=== PATIENT | female | born 1955 | race Two or more races ===

== ENCOUNTER 2020-04-07 09:36 | Outpatient (REF) | payer MEDICAID, SELFPAY ==
--- NOTE | 2020-04-07 | MM_ITS ---
EXAMINATION: MM SCREENING DIGITAL BREAST TOMOSYNTHESIS, BILATERAL CLINICAL INFORMATION: Screening. Asymptomatic. The lifetime risk of breast cancer based on the Tyrer-Cuzick Model is 8%. COMPARISON: Mammography: 04/02/2019, 03/10/2018 TECHNIQUE: Digital breast tomosynthesis is performed in both the craniocaudal and mediolateral oblique views along with computer-aided detection (CAD). Synthesized 2D images are generated from the tomosynthesis. FINDINGS: There are scattered areas of fibroglandular density (ACR BI-RADS breast composition Category b). There are no significant masses, abnormal calcifications, or other abnormalities. The axilla and skin contours are unremarkable. MM/MM tomosynthesis screening BI IMPRESSION: No mammographic evidence of malignancy. ASSESSMENT: BI-RADS 1: Negative RECOMMENDATION: Routine annual mammography screening. This patient's information was entered into a reminder system with a target due date for their next mammogram.
== END 2020-04-07 09:37 | disposition home or self-care (01) ==
LOC: HO.MAMMO 09:36
PROVIDERS: PCP Internal Medicine; Visit Provider Internal Medicine
DX: Z12.31 Encounter for screening mammogram for malignant neoplasm of breast (principal)
CPT/HCPCS: 77063; 77067

== ENCOUNTER 2020-07-25 08:26 | Outpatient (REF) | payer MEDICAID, SELFPAY | END 2020-07-25 08:27 | disposition home or self-care (01) | LOC: HO.LAB 08:26 | PROVIDERS: PCP Internal Medicine; Visit Provider Internal Medicine | DX: Z20.822 Contact with and (suspected) exposure to COVID-19 (principal) | CPT/HCPCS: 36415; C9803; U0003; U0005 ==

== ENCOUNTER 2020-09-17 09:30 | Outpatient (REF) | payer MEDICAID, SELFPAY ==
--- NOTE | ~2020-09-17 | CT_ITS ---
EXAMINATION: CT SOFT TISSUE NECK WITHOUT CONTRAST CLINICAL INFORMATION: Throat pain. COMPARISON: None. TECHNIQUE: Helical imaging was performed in the axial plane with generation of coronal and sagittal reformatted images. This CT examination was performed using dose optimization techniques as appropriate, variously including the following: *Automated exposure control *Adjustment of mA and/or kV according to patient size (this includes techniques or standardized protocols for targeted exams where dose is matched to indication/reason for exam; i.e. extremities or head) *Use of iterative reconstruction technique DLP: 287 mGy-cm. FINDINGS: No contour abnormality is evident within the oral cavity, pharyngeal mucosal space, or larynx, though assessment of the glottic folds are somewhat limited due to apposition. The palatine tonsils are fairly symmetric in appearance. The parotid and mandibular glands appear normal on this noncontrast study. No pathologically enlarged cervical lymph nodes are visible. No soft tissue fluid collections are seen. The thyroid gland appears normal. Mild atherosclerotic wall calcifications of the aortic arch visible. The mediastinum is otherwise grossly unremarkable. There is moderate spondylosis at the C5-C6 level with a disc-osteophyte complex and vacuum phenomenon. Mild anterolisthesis evident at the C4-C5 level with [id number] right-sided hypertrophic facet arthropathy. Mild anterior subluxation also visible at the C3-C4 level. Slight reversal of the normal cervical lordosis. The imaged portions of the lungs are grossly clear. There is an incidental 0.3 cm nodule posteriorly in the left upper lobe. The airways are patent. No acute osseous abnormality is seen. There is periapical lucency and dental caries associated with the left 2nd maxillary premolar tooth. Periapical lucency also visible with the right 1st maxillary premolar. The imaged paranasal sinuses and mastoid air cells are fairly well aerated. The TMJs are normal. The orbits are normal in appearance. There is a moderate sigmoidal-shaped nasal septal deviation. The visualized portions of the brain demonstrate no acute abnormality. CT/CT soft tissue neck wo con IMPRESSION: No visible soft tissue abnormality on this limited noncontrast study. No cervical adenopathy. Periapical lucencies of the left 2nd maxillary premolar and right 1st maxillary premolar teeth which are age-indeterminate. Incidental small 0.3 cm nodule in the left upper lobe. Reference: The Fleischner Society recommendations for management of incidentally detected pulmonary nodules in adults age 35 and greater are based on average nodule size and patient risk category. The recommendations do not apply to lung cancer screening, patients with immunosuppression, or patients with known primary cancer. Single solid nodule average size < 0.3 cm: Low Risk Patient: No routine follow-up. High Risk Patient: Optional CT at 12 months. Certain patients at high risk with suspicious nodule morphology, upper lobe location, or both may warrant 12-month follow-up.
== END 2020-09-17 09:31 | disposition home or self-care (01) ==
LOC: HO.CT 09:30
PROVIDERS: Visit Provider Emergency Medicine
DX: R07.0 Pain in throat (principal); R51.9 Headache, unspecified
CPT/HCPCS: 70490

== ENCOUNTER 2020-10-22 08:08 | Outpatient (REF) | payer MEDICAID, SELFPAY | END 2020-10-22 08:09 | disposition home or self-care (01) | LOC: HO.LAB 08:08 | PROVIDERS: Visit Provider Internal Medicine | DX: Z20.822 Contact with and (suspected) exposure to COVID-19 (principal) | CPT/HCPCS: C9803; U0003; U0005 ==

== ENCOUNTER 2020-11-27 09:58 | Outpatient (REF) | payer MEDICARE, MEDICAID, SELFPAY ==
--- NOTE | ~2020-11-27 | CT_ITS ---
EXAMINATION: CT HEAD WITHOUT CONTRAST CLINICAL INFORMATION: Chronic headache for 3 months COMPARISON: Brain MRI November 2011 TECHNIQUE: Contiguous axial imaging was performed from the skull base to vertex without intravenous administration of contrast. This CT examination was performed using dose optimization techniques as appropriate, variously including the following: *Automated exposure control *Adjustment of mA and/or kV according to patient size (this includes techniques or standardized protocols for targeted exams where dose is matched to indication/reason for exam; i.e. extremities or head) *Use of iterative reconstruction technique DLP: 619 mGy-cm FINDINGS: There is no evidence of acute intracranial hemorrhage or territorial infarction. No abnormal mass effect or midline shift is seen. Smith to white matter differentiation is well preserved. No extra-axial fluid collections are identified. The ventricles are normal in size. There is no abnormal attenuation within the brain parenchyma. The osseous structures and soft tissues are normal. The mastoid air cells and visualized portions of the paranasal sinuses are well aerated. CT/CT head/brain wo con IMPRESSION: Unremarkable exam.
== END 2020-11-27 09:59 | disposition home or self-care (01) ==
LOC: HO.CT 09:58
PROVIDERS: Visit Provider Emergency Medicine
DX: R51.9 Headache, unspecified (principal)
CPT/HCPCS: 70450

== ENCOUNTER 2020-12-26 09:59 | Outpatient (REF) | payer MEDICARE, MEDICAID, SELFPAY ==
--- NOTE | ~2020-12-26 | CT_ITS ---
EXAMINATION: CT CHEST WITHOUT CONTRAST CLINICAL INFORMATION: Solitary pulmonary nodule COMPARISON: CT soft tissue neck 09/17/2020 TECHNIQUE: Multidetector volumetric CT imaging of the chest was done. Axial MIP volume rendering provided. Sagittal and coronal reformatted images were obtained. This CT examination was performed using dose optimization techniques as appropriate, variously including the following: *Automated exposure control *Adjustment of mA and/or kV according to patient size (this includes techniques or standardized protocols for targeted exams where dose is matched to indication/reason for exam; i.e. extremities or head) *Use of iterative reconstruction technique DLP: 120 mGy-cm FINDINGS: [employer]: Unremarkable LUNGS: There is a 3 mm nodule left upper lobe posterior segment (axial image 139/6), stable. No additional pulmonary nodules seen. There are patchy parenchymal opacities in both lung bases, right middle lobe and lingula suggestive of atelectasis. No acute consolidation, mass or additional nodules seen. The lungs are otherwise well expanded. MEDIASTINUM: The thyroid lobes are symmetrical and normal. The central trachea and the bronchi widely patent. The heart size and the great vessels are normal caliber. No pericardial effusion seen. No abnormal size mediastinal or hilar lymph nodes or mass seen. There is no pericardial effusion. PLEURA: There is no pleural effusion. No pleural mass or thickening. AXILLA: Small shotty lymph nodes are seen in bilateral axilla. The chest wall is unremarkable. UPPER ABDOMEN: Visualized liver, spleen, pancreas and bilateral adrenal glands are unremarkable. OSSEOUS STRUCTURES: There is mild ventral spondylosis throughout mid and lower dorsal spine. No lytic process seen. CT/CT chest wo con IMPRESSION: Stable 3 mm left upper lobe nodule compared to previous study 09/17/2020. No new nodules seen. Bilateral lower lobe dependent segment, right middle lobe and lingular patchy parenchymal opacities likely atelectasis.
== END 2020-12-26 10:00 | disposition home or self-care (01) ==
LOC: HO.CT 09:59
PROVIDERS: Visit Provider Internal Medicine
DX: R91.1 Solitary pulmonary nodule (principal)
CPT/HCPCS: 71250

== ENCOUNTER 2021-01-28 12:02 | Outpatient (REF) | payer MEDICARE, MEDICAID, SELFPAY | END 2021-01-28 12:03 | disposition home or self-care (01) | LOC: HO.LAB 12:02 | PROVIDERS: PCP Internal Medicine; Visit Provider Internal Medicine | DX: Z20.822 Contact with and (suspected) exposure to COVID-19 (principal) | CPT/HCPCS: C9803; U0003; U0005 ==

== ENCOUNTER 2021-02-08 12:32 | Outpatient (REF) | payer MEDICARE, MEDICAID, SELFPAY | END 2021-02-08 12:33 | disposition home or self-care (01) | LOC: HO.LAB 12:32 | PROVIDERS: PCP Internal Medicine; Visit Provider Internal Medicine | DX: Z20.822 Contact with and (suspected) exposure to COVID-19 (principal) | CPT/HCPCS: C9803; U0003; U0005 ==

== ENCOUNTER 2021-02-15 10:26 | Outpatient (REF) | payer MEDICARE, MEDICAID, SELFPAY ==
--- NOTE | ~2021-02-15 | XR_ITS ---
EXAMINATION: XR SHOULDER, RIGHT CLINICAL INFORMATION: Pain in right shoulder COMPARISON: None TECHNIQUE: AP external rotation, Grashey, scapular Y, and axillary views of the right shoulder. FINDINGS: No fracture. No dislocation. Normal mineralization and alignment. Joint spaces are maintained. Visualized right lung and ribs are normal. XR/XR shoulder RT min 2V IMPRESSION: No acute osseous abnormality of the right shoulder.
== END 2021-02-15 10:27 | disposition home or self-care (01) ==
LOC: HO.XRAY 10:26
PROVIDERS: Absent Provider Internal Medicine; PCP Internal Medicine; Visit Provider Emergency Medicine
DX: M25.511 Pain in right shoulder (principal)
CPT/HCPCS: 73030

== ENCOUNTER 2021-02-27 10:16 | Outpatient (REF) | payer MEDICARE, MEDICAID, SELFPAY | END 2021-02-27 10:17 | disposition home or self-care (01) | LOC: HO.LAB 10:16 | PROVIDERS: PCP Internal Medicine; Visit Provider Internal Medicine | DX: Z20.822 Contact with and (suspected) exposure to COVID-19 (principal) | CPT/HCPCS: C9803; U0003; U0005 ==

== ENCOUNTER 2021-03-15 09:05 | Outpatient (REF) | payer MEDICARE, MEDICAID, SELFPAY ==
[2021-03-15 09:34] LABS: COVID-19 Test Negative (Negative)
== END 2021-03-15 09:06 | disposition home or self-care (01) ==
LOC: HO.LAB 09:05
PROVIDERS: PCP Internal Medicine; Visit Provider Internal Medicine
DX: Z20.822 Contact with and (suspected) exposure to COVID-19 (principal)
CPT/HCPCS: 36415; 87635; C9803

== ENCOUNTER 2021-04-23 10:33 | Inpatient (IN) | payer MEDICARE, MEDICAID, SELFPAY ==
--- NOTE | ~2021-04-23 | CT_ITS ---
EXAMINATION: CT ABDOMEN AND PELVIS WITH CONTRAST CLINICAL INFORMATION: Rectal bleeding COMPARISON: CT scan abdomen pelvis 06/03/2019 TECHNIQUE: Multidetector volumetric images were obtained from the superior aspect of the liver through the pubic symphysis following administration 85 mL of Omnipaque 350 intravenous contrast. Sagittal and coronal reformatted images were obtained on the technologist's workstation. Oral contrast: No This CT examination was performed using dose optimization techniques as appropriate, variously including the following: *Automated exposure control *Adjustment of mA and/or kV according to patient size (this includes techniques or standardized protocols for targeted exams where dose is matched to indication/reason for exam; i.e. extremities or head) *Use of iterative reconstruction technique DLP: 523 mGy-cm FINDINGS: LUNG BASES: The visualized lung bases are unremarkable. LIVER, GALLBLADDER, AND BILIARY TREE: The liver is normal in size, shape, and attenuation. No focal hepatic lesion or biliary ductal dilatation is present. The gallbladder is unremarkable with no evidence of radiopaque gallstones, gallbladder wall thickening, or obvious pericholecystic inflammatory changes. PANCREAS: Unremarkable. SPLEEN: Unremarkable. ADRENAL GLANDS: Unremarkable. KIDNEYS AND URETERS: The kidneys are normal in size, shape, and attenuation. No hydronephrosis, hydroureter, or calculi seen. No perinephric stranding. There are a few small cortical hypodensities consistent with renal cysts. Largest measuring about 1 cm in the mid lower pole right kidney, coronal image 53/78. No follow-up imaging is recommended for simple renal cyst. BLADDER: No inflammation or bladder calculus or mass. Low in the pelvis inferior to the bladder neck there is a cluster of calcifications which are chronic unchanged since CAT scan 07/30/2012. GASTROINTESTINAL TRACT: There are numerous diverticula throughout the colon. Diverticulosis is most significant at the sigmoid colon. There is no diverticulitis. There is no bowel wall thickening /edema. There is no bowel obstruction. There is a moderate volume of stool in the colon. The appendix is normal . The small bowel loops are unremarkable. The stomach is normal. There is no hiatal hernia. ABDOMINAL WALL: No significant hernia is appreciated. LYMPH NODES: Normal. VASCULAR: Unremarkable. PELVIC VISCERA: Uterus is anteverted. Enhancing fibroid in the fundus of uterus measuring 1.2 cm. There is no adnexal abnormality. Status post bilateral tubal ligation. OSSEOUS STRUCTURES: Multilevel degenerative spondylosis of the spine. CT/CT abdomen pelvis w con IMPRESSION: No acute abnormality CT scan abdomen pelvis. There is significant diverticulosis of the colon but no acute change of bowel.
[2021-04-23 12:10] VITALS: BP 148/57; PULSE 84; RESP 20; TEMP 36.3; O2SAT 99; BMI 31.4
[2021-04-23 14:09] LABS: MANUAL DIFF FLAG NO
[2021-04-23 14:18] LABS: Basophils Absolute Auto 0.1 X10*3/uL (0.0-0.2); Basophils Percent Auto 0.8 % (0-2); Eosinophils Absolute Auto 0.4 X10*3/uL (0.0-0.4); Eosinophils Percent Auto 6.1 % (0-4); Hematocrit 35.2 % (37.0-47.0); Hemoglobin 11.6 g/dl (12.0-16.0); Imm Gran Abs Auto 0.02 X10*3/uL (0.00-0.03); Imm Gran Pct Auto 0.3 % (0.0-0.4); Lymphocytes Absolute Auto 2.2 X10*3/uL (1.2-4.9); Lymphocytes Percent Auto 33.3 % (20-40); Mean Corpuscular Hemoglobin 32.4 pg (27.0-33.0); Mean Corpuscular Volume 98.3 fL (80.0-98.0); Mean Platelet Volume 9.1 fL (9.4-12.3); Monocytes Absolute Auto 0.7 X10*3/uL (0.1-1.2); Monocytes Percent Auto 10.6 % (2-11); Neutrophils Absolute Auto 3.2 x10*3/uL (2.0-8.3); Neutrophils Percent Auto 48.9 % (45-73); Platelet Count 376 X10*3/uL (160-400); Red Blood Count 3.58 X10*6/uL (4.20-5.50); Red Cell Distribution Width 12.5 % (11.0-16.0); White Blood Count 6.6 X10*3/uL (4.8-10.8)
[2021-04-23 14:36] LABS: Alanine Aminotransferase 28 U/L (0-31); Albumin Level 3.7 g/dL (3.5-5.0); Alkaline Phosphatase 94 U/L (39-117); Anion Gap 8 (12-20); Aspartate Amino Transferase 27 U/L (5-31); Bilirubin Direct < 0.2 mg/dL (0.0-0.5); Bilirubin Total 0.3 mg/dL (0.0-1.0); Blood Urea Nitrogen 12 mg/dL (9-16); Carbon Dioxide 28 mmol/L (22-29); Chloride 108 mmol/L (96-108); Creatinine Clr Calc Pharmacy 68.4; Estimated Glomerular Filt Rate > 60; Glucose Random 100 mg/dL (60-115); Lipase 19 U/L (8-78); Potassium 4.2 mmol/L (3.3-5.1); Sodium 140 mmol/L (135-145); Total Protein 6.8 g/dL (6.5-8.0)
[2021-04-23 16:00] VITALS: BP 147/68; PULSE 82; RESP 17; TEMP 36.8; O2SAT 99
[2021-04-23 17:26] VITALS: BP 142/77; PULSE 83; RESP 18; TEMP 36.8; O2SAT 98
--- NOTE | 2021-04-23 17:27 | ED_ITS ---
HPI - GI Bleed General Chief complaint: GI Bleed Stated complaint: rectal bleeding Time Seen by Provider: 04/23/21 16:47 Source: patient Mode of arrival: ambulatory Limitations: no limitations History of Present Illness HPI Narrative: Rectal bleeding intermittent for 3 Days ,bright red blood Onset (ago): day(s) (3) Severity: moderate Relieving factors: none Exacerbating factors: none Related Data Home Medications Medication Instructions Recorded Confirmed fluticasone propionate 50 1 spray INTRANASAL DAILY PRN 04/23/21 04/23/21 mcg/actuation nasal spray,suspension ibuprofen 800 mg tablet 1 tab PO DAILY 04/23/21 04/23/21 Allergies Allergy/AdvReac Type Severity Reaction Status Date / Time No Known Allergies Allergy Unverified 02/23/20 15:46 Review of Systems Constitutional: Constitutional: Reports no additional constitutional complaints Cardiovascular: Cardiovascular: Reports no additional cardiovascular complaints, Denies chest pain and Denies chest pain at rest Respiratory: Respiratory: Reports no additional respiratory complaints Gastrointestinal: Gastrointestinal: Denies coffee ground emesis Neurologic: Reports system reviewed and no additional complaints, except as documented PMF Past Medical History Attestation statement: The following information was validated with the patient. Social History Social History Alcohol intake: never Patient Tobacco Use Status: Never used Tobacco Use of substances other than those prescribed or required for medical reasons: No Advance Directives: No Advance Directives Information Provided: Yes Physical Exam Vital Signs: Vital Signs: Last Vital Signs Temp 98.0 F 04/23/21 21:39 Pulse 84 04/23/21 21:39 Resp 17 04/23/21 21:39 BP 147/82 H 04/23/21 21:39 Pulse Ox 99 04/23/21 21:39 Body Mass Index 31.4 Const: General: cooperative and comfortable Orientation/consciousness: oriented to person, oriented to place, oriented to time and patient oriented x3 HENMT: Head: Yes normal to inspection General nose exam: Normal nares present Face and sinus: Yes normal facial exam Mouth: Normal oral and palatal mucosa present Throat: Yes posterior oropharynx normal Eyes: Conjunctivae: conjunctivae normal Neck: Neck: Yes normal visual inspection and Yes full ROM Chest: Chest palpation & inspection: normal inspection of the chest Resp: Effort & Inspection: normal respiratory effort Auscultation: clear to auscultation bilaterally Cardio: Jugular venous distension: no JVD Rate: regular rate Rhythm: regular rhythm GI: Inspection: Yes normal to inspection Palpation (GI): Soft to palpation, not firm, nontender and no guarding Rectal Exam - Female: visual inspection normal, Abnormal stool present (bloody,) and heme positive stool Skin: General skin exam: no rashes or lesions noted and elasticity normal Lesions: no lesions Rashes: no rashes Neuro: General: oriented to person, oriented to place, oriented to time and patient oriented x3 Course Reevaluation(s) Reevaluation #1: case was d/w GI Dr Rivera ,spoke with hospitalist MDM - GI Bleed Lab Data Result diagrams: 04/23/21 14:05 04/23/21 14:05 Labs: Lab Results 04/23/21 04/23/21 04/23/21 Range/Units 14:05 14:05 17:48 WBC 6.6 (4.8-10.8) X10*3/uL RBC 3.58 L (4.20-5.50) X10*6/uL Hgb 11.6 L (12.0-16.0) g/dl Hct 35.2 L (37.0-47.0) % MCV 98.3 H (80.0-98.0) fL MCH 32.4 (27.0-33.0) pg MCHC 33.0 (31.0-35.0) g/dl RDW 12.5 (11.0-16.0) % Plt Count 376 (160-400) X10*3/uL MPV 9.1 L (9.4-12.3) fL Immature Gran % (Auto) 0.3 (0.0-0.4) % Neut % (Auto) 48.9 (45-73) % Lymph % (Auto) 33.3 (20-40) % [place] % (Auto) 10.6 (2-11) % Eos % (Auto) 6.1 H (0-4) % Baso % (Auto) 0.8 (0-2) % Lymph # (Auto) 2.2 (1.2-4.9) X10*3/uL [place] # (Auto) 0.7 (0.1-1.2) X10*3/uL Eos # (Auto) 0.4 (0.0-0.4) X10*3/uL Baso # (Auto) 0.1 (0.0-0.2) X10*3/uL Abs Immat Gran (auto) 0.02 (0.00-0.03) X10*3/uL Absolute Neuts (auto) 3.2 (2.0-8.3) x10*3/uL Absolute Nucleated RBC 0.000 (0.0-0.012) X10*3/uL Nucleated RBC % (auto) 0.0 (0.0-0.2) /100WBC Sodium 140 (135-145) mmol/L Potassium 4.2 (3.3-5.1) mmol/L Chloride 108 (96-108) mmol/L Carbon Dioxide 28 (22-29) mmol/L Anion Gap 8 L (12-20) BUN 12 (9-16) mg/dL Creatinine 0.64 (0.5-1.4) mg/dL Estim Creat Clear Calc 68.4 Estimated GFR > 60 Random Glucose 100 (60-115) mg/dL Calcium 9.0 (8.4-10.2) mg/dL Total Bilirubin 0.3 (0.0-1.0) mg/dL Direct Bilirubin < 0.2 (0.0-0.5) mg/dL AST 27 (5-31) U/L ALT 28 (0-31) U/L Alkaline Phosphatase 94 (39-117) U/L Total Protein 6.8 (6.5-8.0) g/dL Albumin 3.7 (3.5-5.0) g/dL Lipase 19 (8-78) U/L Urine Color Urine Appearance Urine pH (5.0-8.0) Ur Specific [place] (1.005-1.025) Urine Protein (NEG-TRACE) MG/DL Urine Glucose (UA) (NEG) MG/DL Urine Ketones (NEG) MG/DL Urine Blood (NEG) Urine Nitrite (NEG) Ur Leukocyte Esterase (NEG) Urine RBC (0) /HPF Urine WBC (0-4) /HPF Ur Squamous Epith Cells /LPF Urine Bacteria /LPF Stool Occult Blood (NEGATIVE) COVID-19 ([facility]) (Negative) COVID-19 Clin Com Blood Type A Positive Antibody Screen NEGATIVE 04/23/21 04/23/21 04/23/21 Range/Units 18:27 18:27 20:29 WBC (4.8-10.8) X10*3/uL RBC (4.20-5.50) X10*6/uL Hgb (12.0-16.0) g/dl Hct (37.0-47.0) % MCV (80.0-98.0) fL MCH (27.0-33.0) pg MCHC (31.0-35.0) g/dl RDW (11.0-16.0) % Plt Count (160-400) X10*3/uL MPV (9.4-12.3) fL Immature Gran % (Auto) (0.0-0.4) % Neut % (Auto) (45-73) % Lymph % (Auto) (20-40) % [place] % (Auto) (2-11) % Eos % (Auto) (0-4) % Baso % (Auto) (0-2) % Lymph # (Auto) (1.2-4.9) X10*3/uL [place] # (Auto) (0.1-1.2) X10*3/uL Eos # (Auto) (0.0-0.4) X10*3/uL Baso # (Auto) (0.0-0.2) X10*3/uL Abs Immat Gran (auto) (0.00-0.03) X10*3/uL Absolute Neuts (auto) (2.0-8.3) x10*3/uL Absolute Nucleated RBC (0.0-0.012) X10*3/uL Nucleated RBC % (auto) (0.0-0.2) /100WBC Sodium (135-145) mmol/L Potassium (3.3-5.1) mmol/L Chloride (96-108) mmol/L Carbon Dioxide (22-29) mmol/L Anion Gap (12-20) BUN (9-16) mg/dL Creatinine (0.5-1.4) mg/dL Estim Creat Clear Calc Estimated GFR Random Glucose (60-115) mg/dL Calcium (8.4-10.2) mg/dL Total Bilirubin (0.0-1.0) mg/dL Direct Bilirubin (0.0-0.5) mg/dL AST (5-31) U/L ALT (0-31) U/L Alkaline Phosphatase (39-117) U/L Total Protein (6.5-8.0) g/dL Albumin (3.5-5.0) g/dL Lipase (8-78) U/L Urine Color YELLOW Urine Appearance CLEAR Urine pH 6.0 (5.0-8.0) Ur Specific [place] <= 1.005 (1.005-1.025) Urine Protein NEG (NEG-TRACE) MG/DL Urine Glucose (UA) NEG (NEG) MG/DL Urine Ketones NEG (NEG) MG/DL Urine Blood TRACE (NEG) Urine Nitrite NEG (NEG) Ur Leukocyte Esterase 1+ H (NEG) Urine RBC 0-2 (0) /HPF Urine WBC 0-2 (0-4) /HPF Ur Squamous Epith Cells TRACE /LPF Urine Bacteria TRACE /LPF Stool Occult Blood POSITIVE (NEGATIVE) COVID-19 ([facility]IE) Negative (Negative) COVID-19 Clin Com See Note Blood Type Antibody Screen Imaging Data CT scan - abdomen: My impression: Diverticulosis Discharge Plan Discharge Clinical Impression: Rectal bleed Patient Disposition: Admitted As Inpatient
--- NOTE | 2021-04-23 17:50 | PC.NURSE ---
patient a&ox3, vss, assisted provider with rectal exam, iv inserted, fluids hung per order
[2021-04-23] MEDS: 0.9 % Sodium Chloride 1,000 ML 999 ML IVCONT (18:10)
[2021-04-23] MEDS: iohexoL 350 MG/ML 100 ML INFUS..BTL IV (18:11)
[2021-04-23 18:36] LABS: Appearance Urine CLEAR; Color Urine YELLOW; Glucose Urine UA NEG (NEG); Leukocyte Esterase Urine 1+ (NEG); Nitrite Urine NEG (NEG); Specific Gravity - Urine <= 1.005 (1.005-1.025); UACC Culture Trigger YES; Urine Blood TRACE (NEG); Urine Ketones NEG (NEG); Urine Protein NEG (NEG-TRACE)
[2021-04-23 18:37] LABS: OBS Int Ctl Valid YES; OBS1 POSITIVE (NEGATIVE)
[2021-04-23 18:53] LABS: Bacteria Urine TRACE /LPF; RBC Urine 0-2 /HPF (0); Squamous Epithelial Cell Urine TRACE /LPF; WBC Urine 0-2 /HPF (0-4)
[2021-04-23] MEDS: PEG 3350/Na Sulf,Bicarb,Cl/KCL 4,000 ML SOLN.RECON 4000 ML PO (20:04)
--- NOTE | 2021-04-23 20:08 | PHA.MEDREC ---
Pharmacy Consult ? Medication Reconciliation Pharmacy has completed the medication reconciliation. Annalisa VelascoD
[2021-04-23 20:34] VITALS: BP 140/78; PULSE 80; RESP 20; TEMP 36.6; O2SAT 99
--- NOTE | 2021-04-23 20:36 | P.HPHOSP_ITS ---
History of Present Illness Date of Service: 04/23/21 Chief Complaint: Bloody bowel movement This is a 65-year-old female with past medical history of AYANA as well as fibromyalgia presents to the hospital with complaints of rectal bleed for the past 3 days. Patient reports large amount of blood with every bowel movement. No diarrhea. Reports no previous similar episode. Has left lower quadrant pain. The pain is 6/10, nonradiating, intermittent. Denies any dizziness, no headache, no shortness breath, no change in her vision, no chest pain. Denies nausea or vomiting. No urinary symptoms and no lower extremity edema. She takes ibuprofen daily for her fibromyalgia. On arrival to the ED patient hemodynamically stable with no significant abnormal vitals Labs are significant for WBC count of 6.0, hemoglobin that dropped from 13.4- 11.6, labs otherwise unremarkable. She has UA that is positive for leukocyte Estrace and 0-2 WBC counts with no symptoms. Review of Systems Review of Systems: Yes all other systems are reviewed and are negative [facility] Medical History (Updated 04/24/21 @ 06:28 by Maykel Jimenez MD) Fibromyalgia AYANA (obstructive sleep apnea) Family History (Updated 04/24/21 @ 06:29 by Maykel Jimenez MD) Mother Breast cancer Father Alzheimer's dementia Hypertension Social History Household Members: Family Household Members Other:: grandson Housing: Apartment Do you presently have visiting nurse or other home services: Yes Alcohol intake: never Patient Tobacco Use Status: Never used Tobacco Use of substances other than those prescribed or required for medical reasons: No Have you been hit, kicked, punched, or otherwise hurt by someone within the past year? If so, by whom?: No Do you feel safe in your current relationship?: No Is there a partner from a previous relationship who is making you feel unsafe now?: No Are you made to feel afraid or neglected: No Advance Directives: No Advance Directives Information Provided: Yes Do you have thoughts of harming others: None Do you have a plan to hurt others: No Plan Recently lost weight without trying: No How much weight loss: Not applicable Eating poorly because of decreased appetite: No Nutrition screen score: 0 Nutrition Risks: No Nutritional Risk Patient : No : No Poor oral hygiene: No Meds Allergies Allergy/AdvReac Type Severity Reaction Status Date / Time No Known Allergies Allergy Unverified 02/23/20 15:46 Active Medications: Current Medications Pharmacy Consult (Consult Rx Perform Med Rec) 1 each MISCELLANE ONCE PRN PRN Reason: Consult order Home Medications Medication Instructions Recorded Confirmed Last Taken Type fluticasone propionate 50 1 spray INTRANASAL DAILY PRN 04/23/21 04/23/21 Unknown History mcg/actuation nasal spray,suspension ibuprofen 800 mg tablet 1 tab PO DAILY 04/23/21 04/23/21 04/22/21 History Physical Exam Vital Signs and Narrative: Vital Signs: Last Vital Signs Temp 97.8 F 04/23/21 20:34 Pulse 80 04/23/21 20:34 Resp 20 04/23/21 20:34 BP 140/78 H 04/23/21 20:34 Pulse Ox 99 04/23/21 20:34 Body Mass Index 31.4 Const: General: cooperative and no acute distress Orientation/consciousness: patient oriented x3 Eyes: General: appearance normal, both eyes and all related structures Resp: Effort & Inspection: normal respiratory effort Auscultation: clear to auscultation bilaterally Cardio: Rate: regular rate Rhythm: regular rhythm GI: Other: Abdomen is soft, no rebound or guarding Palpation (GI): Soft to palpation Auscultation: normal bowel sounds Skin: General skin exam: no rashes or lesions noted Neuro: General: patient oriented x3 Cognition (Neuro): normal cognition Extrem: General: Yes normal to inspection and Yes no pedal edema Results Labs CBC and Chem 7: 04/24/21 05:13 04/24/21 05:13 Labs: Laboratory Results - last 24 hr 04/23/21 04/23/21 04/23/21 14:05 14:05 17:48 MCV 98.3 H MCH 32.4 MCHC 33.0 RDW 12.5 Plt Count 376 MPV 9.1 L Immature Gran % (Auto) 0.3 Neut % (Auto) 48.9 Lymph % (Auto) 33.3 [place] % (Auto) 10.6 Eos % (Auto) 6.1 H Baso % (Auto) 0.8 Lymph # (Auto) 2.2 [place] # (Auto) 0.7 Eos # (Auto) 0.4 Baso # (Auto) 0.1 Abs Immat Gran (auto) 0.02 Absolute Neuts (auto) 3.2 Absolute Nucleated RBC 0.000 Nucleated RBC % (auto) 0.0 Anion Gap 8 L Estim Creat Clear Calc 68.4 Estimated GFR > 60 Random Glucose 100 Calcium 9.0 Total Bilirubin 0.3 Direct Bilirubin < 0.2 AST 27 ALT 28 Alkaline Phosphatase 94 Total Protein 6.8 Albumin 3.7 Lipase 19 Urine Color Urine Appearance Urine pH Ur Specific [place] Urine Protein Urine Glucose (UA) Urine Ketones Urine Blood Urine Nitrite Ur Leukocyte Esterase Urine RBC Urine WBC Ur Squamous Epith Cells Urine Bacteria Stool Occult Blood Blood Type A Positive Antibody Screen NEGATIVE 04/23/21 04/23/21 18:27 18:27 MCV MCH MCHC RDW Plt Count MPV Immature Gran % (Auto) Neut % (Auto) Lymph % (Auto) [place] % (Auto) Eos % (Auto) Baso % (Auto) Lymph # (Auto) [place] # (Auto) Eos # (Auto) Baso # (Auto) Abs Immat Gran (auto) Absolute Neuts (auto) Absolute Nucleated RBC Nucleated RBC % (auto) Anion Gap Estim Creat Clear Calc Estimated GFR Random Glucose Calcium Total Bilirubin Direct Bilirubin AST ALT Alkaline Phosphatase Total Protein Albumin Lipase Urine Color YELLOW Urine Appearance CLEAR Urine pH 6.0 Ur Specific [place] <= 1.005 Urine Protein NEG Urine Glucose (UA) NEG Urine Ketones NEG Urine Blood TRACE Urine Nitrite NEG Ur Leukocyte Esterase 1+ H Urine RBC 0-2 Urine WBC 0-2 Ur Squamous Epith Cells TRACE Urine Bacteria TRACE Stool Occult Blood POSITIVE Blood Type Antibody Screen Imaging Radiologist's Impressions: Impressions Abdomen/Pelvis CT 04/23/21 17:25 IMPRESSION: No acute abnormality CT scan abdomen pelvis. There is significant diverticulosis of the colon but no acute change of bowel. Assessment and Plan (1) Rectal bleed: Status: Acute 65-year-old female with past medical history of fibromyalgia for which she takes of problem presents the hospital with bloody bowel movements. # GI bleed - lower versus upper - has history of taking NSAIDs - history of diverticulosis as seen in the CT of the abdomen - reports had colonoscopy 2 years ago that showed diverticulosis with no other abnormality - hemodynamically stable - hemoglobin did drop from 13-11 - patient was discussed with GI by the ED physician, recommended clear liquid diet at this time - will monitor hemoglobin - hold ibuprofen - GI consulted # AYANA - continue CPAP at bedtime # fibromyalgia - hold ibuprofen DVT prophylaxis: SCDs Quality Stroke Does the patient have a stroke diagnosis?: No VTE Prior VTE?: No VTE Risk Level:: Medical - moderate - high VTE Device Contraindication: Treatment Not Indicated VTE Drug Contraindication: N/A - Med Ordered
[2021-04-23 20:56] LABS: COVID-19 Test Negative (Negative)
[2021-04-23 21:39] VITALS: BP 147/82; PULSE 84; RESP 17; TEMP 36.7; O2SAT 99
--- NOTE | 2021-04-23 21:40 | PC.NURSE ---
patient a&ox3, pt drinking bowel prep per order, commode at bedside, vss, pt given warm blanket for comfort, will continue to monitor.
[2021-04-24] VITALS (11 sets, daily range): BP systolic 100–149; BP diastolic 60–79; PULSE 82–96; RESP 11–18; TEMP 36.1–36.4; O2SAT 97–100
[2021-04-24] MEDS: 0.9 % Sodium Chloride Flush 3 ML SYRINGE IVFLUSH ×3 (00:08→22:10)
[2021-04-24 05:41] LABS: MANUAL DIFF FLAG NO
[2021-04-24 05:47] LABS: Basophils Percent Auto 0.7 % (0-2); Eosinophils Absolute Auto 0.4 X10*3/uL (0.0-0.4); Eosinophils Percent Auto 6.6 % (0-4); Hematocrit 31.3 % (37.0-47.0); Hemoglobin 10.3 g/dl (12.0-16.0); Imm Gran Abs Auto 0.01 X10*3/uL (0.00-0.03); Imm Gran Pct Auto 0.2 % (0.0-0.4); Lymphocytes Absolute Auto 2.2 X10*3/uL (1.2-4.9); Lymphocytes Percent Auto 37.1 % (20-40); Mean Corpuscular HGB Conc 32.9 g/dl (31.0-35.0); Mean Corpuscular Hemoglobin 31.9 pg (27.0-33.0); Mean Corpuscular Volume 96.9 fL (80.0-98.0); Mean Platelet Volume 9.3 fL (9.4-12.3); Monocytes Absolute Auto 0.8 X10*3/uL (0.1-1.2); Monocytes Percent Auto 13.3 % (2-11); Neutrophils Absolute Auto 2.5 x10*3/uL (2.0-8.3); Neutrophils Percent Auto 42.1 % (45-73); Platelet Count 354 X10*3/uL (160-400); Red Blood Count 3.23 X10*6/uL (4.20-5.50); Red Cell Distribution Width 12.4 % (11.0-16.0)
[2021-04-24] MEDS: Pantoprazole Sodium 40 MG/10 ML VIAL IVPUSH ×3 (05:49→17:35)
[2021-04-24 05:59] LABS: Anion Gap 11 (12-20); Blood Urea Nitrogen 10 mg/dL (9-16); Calcium 8.8 mg/dL (8.4-10.2); Carbon Dioxide 26 mmol/L (22-29); Chloride 107 mmol/L (96-108); Creatinine Clr Calc Pharmacy 72.9; Estimated Glomerular Filt Rate > 60; Glucose Random 88 mg/dL (60-115); Potassium 3.8 mmol/L (3.3-5.1); Sodium 140 mmol/L (135-145)
--- NOTE | 2021-04-24 06:36 | P.CNGI_ITS ---
History of Present Illness Data of Consult Service Date: 04/24/21 Requesting physician: Maykel Jimenez Primary Care Provider: Miguel Martínez MD HPI Reason for consult: rectal bleeding 65-year-old female with past medical history of AYANA and fibromyalgia who I am seeing for assessment for rectal bleeding. Patient has noted fresh red blood per rectum for 3 d with every bowel motion, although at times she has noted black colored stools as well. Prior to that she had crampy lower abdominal pain on the left side for 3 d. Pain is still present but not as bad as before and 6/10 in severity. Denies any dizziness, no headache, no shortness breath, no change in her vision, no chest pain.? Denies nausea or vomiting.? No urinary symptoms and no lower extremity edema.? She takes ibuprofen every few days for fibromyalgia. She has remained hemodynamically stable. HGB on admission 11.3--> 10 g/dl. Latest one was 12 which may be lab error. CT imaging with diverticulosis, no other lesions. Review of Systems Review of Systems: Yes all other systems are reviewed and are negative Constitutional: Constitutional: Reports no additional constitutional complaints Cardiovascular: Cardiovascular: Reports no additional cardiovascular complaints, Denies chest pain and Denies chest pain at rest Respiratory: Respiratory: Reports no additional respiratory complaints Gastrointestinal: Gastrointestinal: Denies coffee ground emesis Neurologic: Reports system reviewed and no additional complaints, except as documented PMFSH Past Medical History Medical History (Updated 04/24/21 @ 13:55 by Radha Ospina RN) Fibromyalgia AYANA (obstructive sleep apnea) Family History Family History (Updated 04/24/21 @ 06:29 by Maykel Jimenez MD) Mother Breast cancer Father Alzheimer's dementia Hypertension Surgical History Surgical History (Updated 04/24/21 @ 13:47 by Radha Ospina RN) History of radiofrequency ablation procedure for cardiac arrhythmia Hx of colonoscopy Social History Social History Household Members: Family Household Members Other:: grandson Housing: Apartment Do you presently have visiting nurse or other home services: Yes Alcohol intake: never Patient Tobacco Use Status: Never used Tobacco Use of substances other than those prescribed or required for medical reasons: No Currently Displaying Signs/Symptoms of Drug Intoxication Withdrawal: No Have you been hit, kicked, punched, or otherwise hurt by someone within the past year? If so, by whom?: No Do you feel safe in your current relationship?: No Is there a partner from a previous relationship who is making you feel unsafe now?: No Are you made to feel afraid or neglected: No Are you DNR?: No Advance Directives: No Advance Directives Information Provided: Yes Do you have thoughts of harming others: None Do you have a plan to hurt others: No Plan Recently lost weight without trying: No How much weight loss: Not applicable Eating poorly because of decreased appetite: No Nutrition screen score: 0 Nutrition Risks: No Nutritional Risk Patient : No : No Poor oral hygiene: No service: No Current occupational status: [employer] Allergies Allergy/AdvReac Type Severity Reaction Status Date / Time No Known Allergies Allergy Unverified 02/23/20 15:46 Active Medications: Current Medications Acetaminophen (Acetaminophen 325 Mg Tablet) 650 mg PO Q6H PRN PRN Reason: Pain, Mild (Pain Scale 1-3) Ondansetron HCl (Ondansetron Hcl 4 Mg/2 Ml Vial) 4 mg IVPUSH Q8H PRN PRN Reason: Nausea and Vomiting Oxycodone HCl (Oxycodone Hcl Immed Release 5 Mg Tablet) 5 mg PO Q6H PRN PRN Reason: Pain, Severe (Pain Scale 7-10) Pantoprazole Sodium (Pantoprazole Sodium 40 Mg/10 Ml Vial) 40 mg IVPUSH BID@0630,1630 [facility] Last Admin: 04/24/21 05:49 Dose: 40 mg Documented by: Pharmacy Consult (Consult Rx Perform Med Rec) 1 each MISCELLANE ONCE PRN PRN Reason: Consult order Sodium Chloride (0.9 % Sodium Chloride Flush 3 Ml Syringe) 3 ml IVFLUSH QSHIFT [facility] Last Admin: 04/24/21 00:08 Dose: 3 ml Documented by: Home Medications Medication Instructions Recorded Confirmed Last Taken Type fluticasone propionate 50 1 spray INTRANASAL DAILY PRN 04/23/21 04/23/21 Unknown History mcg/actuation nasal spray,suspension ibuprofen 800 mg tablet 1 tab PO DAILY 04/23/21 04/23/21 04/22/21 History Physical Exam Vital Signs: Vital Signs: Last Vital Signs Temp 97.3 F 04/24/21 03:48 Pulse 82 04/24/21 03:48 Resp 18 04/24/21 03:48 BP 132/79 04/24/21 03:48 Pulse Ox 98 04/24/21 03:48 Body Mass Index 31.4 Const: General: cooperative, comfortable and no acute distress Orientation/consciousness: oriented to person, oriented to place, oriented to time and patient oriented x3 Limitations: language barrier HENMT: Head: Yes normal to inspection General nose exam: Normal nares present Face and sinus: Yes normal facial exam Mouth: Normal oral and palatal mucosa present Throat: Yes posterior oropharynx normal Eyes: General: appearance normal, both eyes and all related structures Conjunctivae: conjunctivae normal Neck: Neck: Yes normal visual inspection and Yes full ROM Chest: Chest palpation & inspection: normal inspection of the chest Resp: Effort & Inspection: normal respiratory effort Auscultation: clear to auscultation bilaterally Cardio: Jugular venous distension: no JVD Rate: regular rate Rhythm: regular rhythm GI: Inspection: Yes normal to inspection Palpation (GI): Soft to palpation, not firm, nontender and no guarding Auscultation: normal bowel sounds Skin: General skin exam: no rashes or lesions noted and elasticity normal Lesions: no lesions Rashes: no rashes Neuro: General: oriented to person, oriented to place, oriented to time and patient oriented x3 Cognition (Neuro): normal cognition Extrem: General: Yes normal to inspection and Yes no pedal edema Results Labs CBC & Chem 7: 04/24/21 11:33 04/24/21 05:13 Labs: Short CBC 04/23/21 04/24/21 Range/Units 14:05 05:13 WBC 6.6 6.0 (4.8-10.8) X10*3/uL Hgb 11.6 L 10.3 L (12.0-16.0) g/dl Hct 35.2 L 31.3 L (37.0-47.0) % Plt Count 376 354 (160-400) X10*3/uL BMP 04/23/21 04/24/21 14:05 05:13 Sodium 140 140 Potassium 4.2 3.8 Chloride 108 107 Carbon Dioxide 28 26 BUN 12 10 Creatinine 0.64 0.60 Calcium 9.0 8.8 Liver Function 04/23/21 Range/Units 14:05 Total Bilirubin 0.3 (0.0-1.0) mg/dL Direct Bilirubin < 0.2 (0.0-0.5) mg/dL AST 27 (5-31) U/L ALT 28 (0-31) U/L Alkaline Phosphatase 94 (39-117) U/L Albumin 3.7 (3.5-5.0) g/dL Urine 04/23/21 Range/Units 18:27 Urine Color YELLOW Urine Appearance CLEAR Urine pH 6.0 (5.0-8.0) Ur Specific [place] <= 1.005 (1.005-1.025) Urine Protein NEG (NEG-TRACE) MG/DL Urine Glucose (UA) NEG (NEG) MG/DL Assessment and Plan (1) Rectal bleed: Status: Acute 1/ Acute blood loss anemia, ddx: diverticular bleed, or SCAD, neoplasia, hemorrhoidal bleed or upper GIB with rapid transit. PLAN: 1/ Cont with PPI meantime 2/ transfuse if HGB < 7-8 g/dl 3/ plan for colonoscopy, if neg then EGD --has been taking bowel prep overnight on been on clears. Procedures Date of Service Date of Service: 04/24/21
--- NOTE | 2021-04-24 10:13 | P.PNIM_ITS ---
Subjective Subjective Date of Service: 04/24/21 Interval History: seen and examined this AM with per diem interpreter services reports she had a BM this AM with some blood denies any abdominal symptoms no fevers or chills no n/v Review of Systems negative except what is mentioned in the interval history Physical Exam Vital Signs: Vital Signs: Last Vital Signs Temp 97.2 F 04/24/21 07:35 Pulse 87 04/24/21 07:35 Resp 17 04/24/21 07:35 BP 114/66 04/24/21 07:35 Pulse Ox 98 04/24/21 07:35 Body Mass Index 31.4 Const: Other: General - no acute distress, appears comfortable Cardiovascular - regular rate and rhythm, S1-S2 Lungs - normal respiratory effort, clear to auscultation bilaterally, no wheezing Abdomen - soft, nontender, no rebound or guarding Extremities - no edema bilaterally Neuro - awake and alert, no focal deficits Objective Data Active Medications Acetaminophen (Acetaminophen 325 Mg Tablet) 650 mg PO Q6H PRN PRN Reason: Pain, Mild (Pain Scale 1-3) Ondansetron HCl (Ondansetron Hcl 4 Mg/2 Ml Vial) 4 mg IVPUSH Q8H PRN PRN Reason: Nausea and Vomiting Oxycodone HCl (Oxycodone Hcl Immed Release 5 Mg Tablet) 5 mg PO Q6H PRN PRN Reason: Pain, Severe (Pain Scale 7-10) Pantoprazole Sodium (Pantoprazole Sodium 40 Mg/10 Ml Vial) 40 mg IVPUSH BID@0630,1630 [facility] Last Admin: 04/24/21 05:49 Dose: 40 mg Documented by: RIRI Pharmacy Consult (Consult Rx Perform Med Rec) 1 each MISCELLANE ONCE PRN PRN Reason: Consult order Sodium Chloride (0.9 % Sodium Chloride Flush 3 Ml Syringe) 3 ml IVFLUSH QSHIFT [facility] Last Admin: 04/24/21 07:29 Dose: 3 ml Documented by: JOSE Labs CBC & Chem 7: 04/24/21 05:13 04/24/21 05:13 Labs: Laboratory Results - last 24 hr 04/23/21 04/23/21 04/23/21 14:05 14:05 17:48 MCV 98.3 H MCH 32.4 MCHC 33.0 RDW 12.5 Plt Count 376 MPV 9.1 L Immature Gran % (Auto) 0.3 Neut % (Auto) 48.9 Lymph % (Auto) 33.3 [place] % (Auto) 10.6 Eos % (Auto) 6.1 H Baso % (Auto) 0.8 Lymph # (Auto) 2.2 [place] # (Auto) 0.7 Eos # (Auto) 0.4 Baso # (Auto) 0.1 Abs Immat Gran (auto) 0.02 Absolute Neuts (auto) 3.2 Absolute Nucleated RBC 0.000 Nucleated RBC % (auto) 0.0 Anion Gap 8 L Estim Creat Clear Calc 68.4 Estimated GFR > 60 Random Glucose 100 Calcium 9.0 Total Bilirubin 0.3 Direct Bilirubin < 0.2 AST 27 ALT 28 Alkaline Phosphatase 94 Total Protein 6.8 Albumin 3.7 Lipase 19 Urine Color Urine Appearance Urine pH Ur Specific [place] Urine Protein Urine Glucose (UA) Urine Ketones Urine Blood Urine Nitrite Ur Leukocyte Esterase Urine RBC Urine WBC Ur Squamous Epith Cells Urine Bacteria Stool Occult Blood COVID-19 (PENNIE) COVID-19 Clin Com Blood Type A Positive Antibody Screen NEGATIVE 04/23/21 04/23/21 04/23/21 18:27 18:27 20:29 MCV MCH MCHC RDW Plt Count MPV Immature Gran % (Auto) Neut % (Auto) Lymph % (Auto) [place] % (Auto) Eos % (Auto) Baso % (Auto) Lymph # (Auto) [place] # (Auto) Eos # (Auto) Baso # (Auto) Abs Immat Gran (auto) Absolute Neuts (auto) Absolute Nucleated RBC Nucleated RBC % (auto) Anion Gap Estim Creat Clear Calc Estimated GFR Random Glucose Calcium Total Bilirubin Direct Bilirubin AST ALT Alkaline Phosphatase Total Protein Albumin Lipase Urine Color YELLOW Urine Appearance CLEAR Urine pH 6.0 Ur Specific [place] <= 1.005 Urine Protein NEG Urine Glucose (UA) NEG Urine Ketones NEG Urine Blood TRACE Urine Nitrite NEG Ur Leukocyte Esterase 1+ H Urine RBC 0-2 Urine WBC 0-2 Ur Squamous Epith Cells TRACE Urine Bacteria TRACE Stool Occult Blood POSITIVE COVID-19 (PENNIE) Negative COVID-19 Clin Com See Note Blood Type Antibody Screen 04/24/21 04/24/21 05:13 05:13 MCV 96.9 MCH 31.9 MCHC 32.9 RDW 12.4 Plt Count 354 MPV 9.3 L Immature Gran % (Auto) 0.2 Neut % (Auto) 42.1 L Lymph % (Auto) 37.1 [place] % (Auto) 13.3 H Eos % (Auto) 6.6 H Baso % (Auto) 0.7 Lymph # (Auto) 2.2 [place] # (Auto) 0.8 Eos # (Auto) 0.4 Baso # (Auto) 0.0 Abs Immat Gran (auto) 0.01 Absolute Neuts (auto) 2.5 Absolute Nucleated RBC 0.000 Nucleated RBC % (auto) 0.0 Anion Gap 11 L Estim Creat Clear Calc 72.9 Estimated GFR > 60 Random Glucose 88 Calcium 8.8 Total Bilirubin Direct Bilirubin AST ALT Alkaline Phosphatase Total Protein Albumin Lipase Urine Color Urine Appearance Urine pH Ur Specific [place] Urine Protein Urine Glucose (UA) Urine Ketones Urine Blood Urine Nitrite Ur Leukocyte Esterase Urine RBC Urine WBC Ur Squamous Epith Cells Urine Bacteria Stool Occult Blood COVID-19 (PENNIE) COVID-19 Clin Com Blood Type Antibody Screen Microbiology Microbiology Results: Microbiology 04/23/21 Unknown Urine Culture - Preliminary Urine clean catch - Urine zimmerman top No growth to date. Assessment and Plan (1) Rectal bleed: Status: Acute Assessment and Plan: This is a 65 yo F with a PMH of fibromaylgia, diverticulosis who presented to the hospital with painless GI bleeding. 1. Acute GI bleed causing acute blood loss anemia suspected lower GI - ? diverticular continues to have bleeding, but reports slowing down GI on the case -- plan for scope today, continue bowel prep monitor h/h q6-8 hours continue IV PPI for now 2. AYANA cpap at bedtime Full Code DVT pptx, mechanical due to acute bleeding Quality Stroke Does the patient have a stroke diagnosis?: No VTE Prior VTE?: No VTE Risk Level:: Medical - moderate - high VTE Device Contraindication: Treatment Not Indicated VTE Drug Contraindication: N/A - Med Ordered
--- NOTE | 2021-04-24 10:23 | MHC.CM.PN ---
IMM 03/24/21, EMR REVIEWED, PT ADMITTED W/GI BLEED, CM MET W/PT VIA CREATIVE SERVICES SPECIALIST, PT REPORTS SHE LIVES W/[place], PT IS INDEPENDENT W/ALL CARE, HAS A CPAP AND NO OTHER DME, PT HAS NO HOME SERVICES, PT VERIFIES PCP ROMEO RHODES, PT REPORTS HER DTR JULIO SANCHEZJesica [phone] IS HER HCP HOWEVER DOES NOT HAVE A COPY AND NEW HCP HAS BEEN COMPLETED W/CM. PT IS ALSO REQUESTING CPAP FOR TONIGHT SHE IS NOT DISCHARGING, PT REPORTS SHE WAS SUPPOSED TO GET ONE LAST NIGHT AND DID NOT, CM HAS NOTIFIED PT'S NURSE. D/C PLAN: HOME NO SERVICES VS VNA, DTR TO TRANSPORT
[2021-04-24 11:47] LABS: Hematocrit 37.1 % (37.0-47.0); Hemoglobin 12.5 g/dl (12.0-16.0)
[2021-04-24] MEDS: Dextrose 5 % and 0.45 % NaCl 1,000 ML 100 ML IVCONT (11:47)
--- NOTE | 2021-04-24 13:48 | P.CONAN_ITS ---
[facility] Active Problems Active Problems: All Active Problems (Updated 04/24/21 @ 06:28 by Maykel Jimenez MD) Rectal bleed (Acute) Past Medical History Medical History (Updated 04/24/21 @ 13:55 by Radha Ospina, RN) Fibromyalgia AYANA (obstructive sleep apnea) Family History Family History (Updated 04/24/21 @ 06:29 by Maykel Jimenez MD) Mother Breast cancer Father Alzheimer's dementia Hypertension Family history of problems with anesthesia: No Surgical History Surgical History (Updated 04/24/21 @ 13:47 by Radha Ospina RN) History of radiofrequency ablation procedure for cardiac arrhythmia Hx of colonoscopy History of Problems with Anesthesia: No Social History Social History Household Members: Family Household Members Other:: grandson Housing: Apartment Do you presently have visiting nurse or other home services: Yes Alcohol intake: never Patient Tobacco Use Status: Never used Tobacco Use of substances other than those prescribed or required for medical reasons: No Currently Displaying Signs/Symptoms of Drug Intoxication Withdrawal: No Have you been hit, kicked, punched, or otherwise hurt by someone within the past year? If so, by whom?: No Do you feel safe in your current relationship?: No Is there a partner from a previous relationship who is making you feel unsafe now?: No Are you made to feel afraid or neglected: No Are you DNR?: No Advance Directives: No Advance Directives Information Provided: Yes Do you have thoughts of harming others: None Do you have a plan to hurt others: No Plan Recently lost weight without trying: No How much weight loss: Not applicable Eating poorly because of decreased appetite: No Nutrition screen score: 0 Nutrition Risks: No Nutritional Risk Patient : No : No Poor oral hygiene: No service: No Current occupational status: disabled Meds Allergies Allergy/AdvReac Type Severity Reaction Status Date / Time No Known Allergies Allergy Unverified 02/23/20 15:46 Active Medications: Current Medications Acetaminophen (Acetaminophen 325 Mg Tablet) 650 mg PO Q6H PRN PRN Reason: Pain, Mild (Pain Scale 1-3) Dextrose/Sodium Chloride (D51/2ns) 1,000 mls @ 100 mls/hr IVCONT .Q10H [facility] Last Admin: 04/24/21 11:47 Dose: 100 mls/hr Documented by: Ondansetron HCl (Ondansetron Hcl 4 Mg/2 Ml Vial) 4 mg IVPUSH Q8H PRN PRN Reason: Nausea and Vomiting Oxycodone HCl (Oxycodone Hcl Immed Release 5 Mg Tablet) 5 mg PO Q6H PRN PRN Reason: Pain, Severe (Pain Scale 7-10) Pantoprazole Sodium (Pantoprazole Sodium 40 Mg/10 Ml Vial) 40 mg IVPUSH BID @0630,1630 [facility] Last Admin: 04/24/21 05:49 Dose: 40 mg Documented by: Pharmacy Consult (Consult Rx Perform Med Rec) 1 each MISCELLANE ONCE PRN PRN Reason: Consult order Sodium Chloride (0.9 % Sodium Chloride Flush 3 Ml Syringe) 3 ml IVFLUSH QSHIFT [facility] Last Admin: 04/24/21 13:15 Dose: Not Given Documented by: Home Medications Medication Instructions Recorded Confirmed Last Taken Type fluticasone propionate 50 1 spray INTRANASAL DAILY PRN 04/23/21 04/23/21 Unknown History mcg/actuation nasal spray,suspension ibuprofen 800 mg tablet 1 tab PO DAILY 04/23/21 04/23/21 04/22/21 History Exam Exam Date and Time: April 24, 2021 1348 Height,Weight and Vital Signs: Height 4 ft 9 in Weight 65.771 kg Last Vital Signs Temp 97.1 F 04/24/21 11:40 Pulse 88 04/24/21 11:40 Resp 18 04/24/21 11:40 BP 109/68 04/24/21 11:40 Pulse Ox 100 04/24/21 11:40 Pertinent Lab Results Pertinent Lab Results: Laboratory Tests 04/23/21 04/23/21 04/23/21 14:05 14:05 17:48 WBC 6.6 RBC 3.58 L Hgb 11.6 L Hct 35.2 L MCV 98.3 H MCH 32.4 MCHC 33.0 RDW 12.5 Plt Count 376 MPV 9.1 L Immature Gran % (Auto) 0.3 Neut % (Auto) 48.9 Lymph % (Auto) 33.3 [place] % (Auto) 10.6 Eos % (Auto) 6.1 H Baso % (Auto) 0.8 Lymph # (Auto) 2.2 [place] # (Auto) 0.7 Eos # (Auto) 0.4 Baso # (Auto) 0.1 Abs Immat Gran (auto) 0.02 Absolute Neuts (auto) 3.2 Absolute Nucleated RBC 0.000 Nucleated RBC % (auto) 0.0 Sodium 140 Potassium 4.2 Chloride 108 Carbon Dioxide 28 Anion Gap 8 L BUN 12 Creatinine 0.64 Estim Creat Clear Calc 68.4 Estimated GFR > 60 Random Glucose 100 Calcium 9.0 Total Bilirubin 0.3 Direct Bilirubin < 0.2 AST 27 ALT 28 Alkaline Phosphatase 94 Total Protein 6.8 Albumin 3.7 Lipase 19 Urine Color Urine Appearance Urine pH Ur Specific [place] [employer] Urine Protein Urine Glucose (UA) Urine Ketones Urine Blood Urine Nitrite Ur Leukocyte Esterase Urine RBC Urine WBC Ur Squamous Epith Cells Urine Bacteria Stool Occult Blood COVID-19 (PENNIE) COVID-19 [facility] Com Blood Type A Positive Antibody Screen NEGATIVE 04/23/21 04/23/21 04/23/21 18:27 18:27 20:29 WBC RBC Hgb Hct MCV MCH MCHC RDW Plt Count MPV Immature Gran % (Auto) Neut % (Auto) Lymph % (Auto) [place] % (Auto) Eos % (Auto) Baso % (Auto) Lymph # (Auto) [place] # (Auto) Eos # (Auto) Baso # (Auto) Abs Immat Gran (auto) Absolute Neuts (auto) Absolute Nucleated RBC Nucleated RBC % (auto) Sodium Potassium Chloride Carbon Dioxide Anion Gap BUN Creatinine Estim Creat Clear Calc Estimated GFR Random Glucose Calcium Total Bilirubin Direct Bilirubin AST ALT Alkaline Phosphatase Total Protein Albumin Lipase Urine Color YELLOW Urine Appearance CLEAR Urine pH 6.0 Ur Specific [employer] [employer] <= 1.005 Urine Protein NEG Urine Glucose (UA) NEG Urine Ketones NEG Urine Blood TRACE Urine Nitrite NEG Ur Leukocyte Esterase 1+ H Urine RBC 0-2 Urine WBC 0-2 Ur Squamous Epith Cells TRACE Urine Bacteria TRACE Stool Occult Blood POSITIVE COVID-19 (PENNIE) Negative COVID-19 [facility] Com See Note Blood Type Antibody Screen 04/24/21 04/24/21 04/24/21 05:13 05:13 11:33 WBC 6.0 RBC 3.23 L Hgb 10.3 L 12.5 D Hct 31.3 L 37.1 MCV 96.9 MCH 31.9 MCHC 32.9 RDW 12.4 Plt Count 354 MPV 9.3 L Immature Gran % (Auto) 0.2 Neut % (Auto) 42.1 L Lymph % (Auto) 37.1 [place] % (Auto) 13.3 H Eos % (Auto) 6.6 H Baso % (Auto) 0.7 Lymph # (Auto) 2.2 [place] # (Auto) 0.8 Eos # (Auto) 0.4 Baso # (Auto) 0.0 Abs Immat Gran (auto) 0.01 Absolute Neuts (auto) 2.5 Absolute Nucleated RBC 0.000 Nucleated RBC % (auto) 0.0 Sodium 140 Potassium 3.8 Chloride 107 Carbon Dioxide 26 Anion Gap 11 L BUN 10 Creatinine 0.60 Estim Creat Clear Calc 72.9 Estimated GFR > 60 Random Glucose 88 Calcium 8.8 Total Bilirubin Direct Bilirubin AST ALT Alkaline Phosphatase Total Protein Albumin Lipase Urine Color Urine Appearance Urine pH Ur Specific [employer] Urine Protein Urine Glucose (UA) Urine Ketones Urine Blood Urine Nitrite Ur Leukocyte Esterase Urine RBC Urine WBC Ur Squamous Epith Cells Urine Bacteria Stool Occult Blood COVID-19 (PENNIE) COVID-19 Clin Com Blood Type Antibody Screen Airway Mallampati Class: II TM Dist: >3cm Neck ROM: Full Loose/Missing/Broken Teeth: Yes (Missing 5) Heart: rrr Lungs: cta Assessment and Plan Assessment Anesthesia Assessment: Anesthesia Plan Discussed and Chart Reviewed Final Anesthetic Review Family History of Problems with Anesthesia: No History of Problems with Anesthesia: No NPO: Yes ASA Class: III Final Preanesthetic Review: No Changes in Pt Med Stat, Meds/Allgs Chart Reviewed and Consent Obtained/Reviewed Patient Risk: Intermediate Procedure Risk: Intermediate Anesthetic Plan Anesthetic Plan: MAC: Disposition: Standard PACU
--- NOTE | 2021-04-24 15:04 | MHC.SHP ---
Pre-Procedural Eval Section A Date of Service: 04/24/21 The patient is an INPATIENT: Yes The History & Physical has been completed within 30 days and I have reviewed it.: Yes Section B Chief Complaint: GI Bleed Allergies: Allergies Allergy/AdvReac Type Severity Reaction Status Date / Time No Known Allergies Allergy Unverified 02/23/20 15:46 Plan Diagnosis/Plan: Unchanged I have reviewed the history and physical and performed a pertinent physical examination on my patient. No changes have occurred unless specified.
--- NOTE | 2021-04-24 16:13 | PM.OP ---
Brief Operative Note Date of Service: 04/24/21 Pre-op diagnosis: Rectal bleeding Post-op diagnosis: same Procedure: see op note Surgeon: Albino Rivera MD Anesthesia: MAC Was an Assistant Plant Controller used for this Procedure?: No Estimated blood loss (mL): 0 Condition: stable Disposition: PACU
--- NOTE | 2021-04-24 16:13 | W.PM.OPN ---
Operative Note Operative Note Date of Service: 04/24/21 Narrative: Operative Information Procedure Description: EGD, Colonoscopy initially started with colonoscopy but then turned her for EGD as no active bleeding sites seen in colon FLEXIBLE TRANSORAL UPPER GASTROINTESTINAL ENDOSCOPY AND COLONOSCOPY PROCEDURE NOTE UPPER ENDOSCOPY Consent: Indications for the procedure and potential complications of bleeding, perforation, reaction to medications and missed diagnosis were discussed with the patient and informed consent was obtained. Instrument: Olympus GIF H 190 J mid size upper endoscope Monitoring: Vital signs and clinical assessment, continuous EKG monitoring, Pulse oximetry, Carbon Dioxide monitoring and blood pressure monitoring were done throughout the procedure. Procedure: The patient was placed in the left lateral decubitis position and pre-procedure medications were administered and a bite block was placed. The endoscope was inserted into the mouth and advanced under direct vision to the third part of duodenum. A careful inspection was made as the upper endoscope was withdrawn including a retroflexed examination of the proximal stomach; Findings and interventions are described below. Findings: Larynx:normal Esophagus: GE junction at 34 cm, diaphragm hiatus at 36 cm, normal mucosa, consistent with 2 cm sliding hiatal hernia Stomach: Normal mucosa. Grade 2 flap valve on retroflexed examination of the cardia. Duodenum: Normal bulb and descending duodenum, No blood seen Intervention: none COLONOSCOPY Instrument: Olympus variable stiffness pediatric scope 190L Colonoscopy Monitoring: Vital signs and clinical assessment, continuous EKG monitoring, Pulse oximetry, Carbon Dioxide monitoring and blood pressure monitoring were done throughout the procedure. Procedure: The patient was placed in the left lateral decubitis position and pre-procedure medications were administered. After a digital rectal examination of the ano-rectum, the video colonoscope was inserted into the rectum and advanced through the colon to the cecum/TI. The colonoscope was slowly withdrawn in a retrograde panoramic fashion and the colon mucosa was carefully examined including a retroflexed view of the rectum. Findings and interventions are described below. Procedure Difficulty: easy Findings: No active bleeding, slightly old blood tinged fecal fluid Terminal Ileum-normal Cecum:normal Ascending Colon: normal Transverse Colon -normal Descending Colon:normal Sigmoid Colon:numerous diverticula seen of varying sizes, no visible vessels seen Rectum: Retroflexion with moderate large internal hemorrhoids, grade I Anorectum - normal Colon preparation: Dryden Bowel Preparation Scale Right colon; 2 Transverse colon: 3 Left colon; 3 (0 = Unprepared colon segment with mucosa not seen due to solid stool that cannot be cleared. 1 = Portion of mucosa of the colon segment seen, but other areas of the colon segment not well seen due to staining, residual stool and/or opaque liquid. 2 = Minor amount of residual staining, small fragments of stool and/or opaque liquid, but mucosa of colon segment seen well. 3 = Entire mucosa of colon segment seen well with no residual staining, small fragments of stool or opaque liquid) Impression and Post Procedure Diagnosis: Endoscopy Findings: hiatal hernia Colonoscopy Findings: internal hemorrhoids diverticular disease Plan: No evidence of active bleeding, bleeding could have either been diverticular or hemorrhoidal in origin avoid constipation stool softener and miralax, high fiber diet with 4 glasses of water daily at least can take regular diet Above findings were reviewed with the patient and relevant handouts were provided if indicated.
[2021-04-25] VITALS: BP 135/75; PULSE 95; RESP 16; TEMP 37; O2SAT 100
[2021-04-25 04:00] VITALS: BP 115/62; PULSE 81; RESP 16; TEMP 36.8; O2SAT 98
--- NOTE | 2021-04-25 05:32 | PC.NURSE ---
pt refusing IV fluids, she has a regular diet ordered and is drinking plenty of fluids. Dr. Jimenez is aware.
[2021-04-25] MEDS: Pantoprazole Sodium 40 MG/10 ML VIAL IVPUSH (05:41)
[2021-04-25 07:44] VITALS: BP 123/64; PULSE 89; RESP 18; TEMP 36.4; O2SAT 98
[2021-04-25 08:43] LABS: Hemoglobin 11.2 g/dl (12.0-16.0); Mean Corpuscular HGB Conc 32.9 g/dl (31.0-35.0); Mean Corpuscular Hemoglobin 31.3 pg (27.0-33.0); Mean Platelet Volume 9.3 fL (9.4-12.3); Platelet Count 418 X10*3/uL (160-400); Red Blood Count 3.58 X10*6/uL (4.20-5.50); Red Cell Distribution Width 12.2 % (11.0-16.0); White Blood Count 6.8 X10*3/uL (4.8-10.8)
--- NOTE | 2021-04-25 09:10 | P.DS_ITS ---
DS: Providers Provider Date of Service: 04/25/21 Date of admission: 04/23/21 20:35 Primary care physician: Miguel Martínez MD Consults: 04/23/21 23:05 Consult to Gastroenterology Routine Consulting Provider: Albino Rivera Reason for consultation: GI bleed Has provider been notified: No DS: Diagnosis Discharge Diagnosis (1) Acute blood loss anemia: Status: Acute (2) Lower GI bleed: Status: Acute DS: Summary Hospital Course Hospital Course: HPI from admission H&P: This is a 65-year-old female with past medical history of AYANA as well as fibro myalgia presents to the hospital with complaints of rectal bleed for the past 3 days.? Patient reports large amount of blood with every bowel movement.? No diarrhea.? Reports no previous similar episode.? Has left lower quadrant pain.? The pain is 6/10, nonradiating, intermittent.? Denies any dizziness, no headache, no shortness breath, no change in her vision, no chest pain.? Denies nausea or vomiting.? No urinary symptoms and no lower extremity edema.? She takes ibuprofen daily for her fibromyalgia. On arrival to the ED patient hemodynamically stable with no significant abnormal vitals Labs are significant for WBC count of 6.0, hemoglobin that dropped from 13.4- 11.6, labs otherwise unremarkable.? She has UA that is positive for leukocyte Estrace and 0-2 WBC counts with no symptoms. Hospital Course: Patient was started on IV PPI and underwent serial H/H monitoring. She was evaluated by GI and ultimately underwent both upper and lower endoscopies which were negative for acute bleeding. Colonoscopy showed internal hemorrhoids and diverticular disease and EGD showed hiatal hernia. Her diet was advanced and her bleeding stopped. She will be d/c home on oral PPI daily as well as a bowel regime to prevent consitpation. Time Spent with Patient Time attestation: Total time spent providing and/or coordinating discharge services: Discharge coordination time: Greater than 30 minutes Quality: Stroke Does the patient have a stroke diagnosis?: No Physical Exam Vital Signs: Vital Signs: Last Vital Signs Temp 97.5 F 04/25/21 07:44 Pulse 89 04/25/21 07:44 Resp 18 04/25/21 07:44 BP 123/64 04/25/21 07:44 Pulse Ox 98 04/25/21 07:44 Body Mass Index 31.4 Const: Other: General - no acute distress, appears comfortable Cardiovascular - regular rate and rhythm, S1-S2 Lungs - normal respiratory effort, clear to auscultation bilaterally, no wheezing Abdomen - soft, nontender, no rebound or guarding Extremities - no edema bilaterally Neuro - awake and alert, no focal deficits DS: Data Data Completed and Pending Labs on day of discharge: Laboratory Results - last 24 hr 04/24/21 04/25/21 11:33 08:19 WBC 6.8 RBC 3.58 L Hgb 12.5 D 11.2 L Hct 37.1 34.0 L MCV 95.0 MCH 31.3 MCHC 32.9 RDW 12.2 Plt Count 418 H MPV 9.3 L Absolute Nucleated RBC 0.000 Nucleated RBC % (auto) 0.0 Discharge Plan Discharge Patient Disposition: Home, Self-Care Discharge Diagnosis: Lower GI bleed, Hiatal Hernia Referrals: Miguel Martínez MD [Primary Care Provider] - 1 Week Discharge Medications: New omeprazole 20 mg capsule,delayed release(DR/EC) 20 mg PO DAILY Qty: 30 RF: 0 polyethylene glycol 3350 [Miralax] 17 gram/dose powder 17 g PO DAILY Qty: 850 RF: 0 sennosides-docusate sodium [Colace 2-In-1] 8.6-50 mg tablet 1 tab-cap PO BEDTIME Qty: 30 RF: 0 Continued ibuprofen 800 mg tablet 1 tab PO DAILY RF: 0 fluticasone propionate 50 mcg/actuation spray,suspension 1 spray intranasal DAILY PRN (Reason: Allergy Symptoms) RF: 0 Discharge Orders: Discharge Order (Routine); Ordered 04/25/21 Ordered By: Tez Monroy Diet: advance to usual diet Activity on Discharge: As tolerated Stand Alone Forms: Patient Portal Discharge page Care Plan Goals: To stay healthy and out of the hospital. Health Concerns: Hemorrhoids, Diverticula, Hiatial Hernia Plan of Treatment: avoid constipation stool softener and miralax, high fiber diet with 4 glasses of water daily at least Take omeprazole 20mg daily Assessment: 65 yo F admitted for acute GI bleed. Underwent EGD (showed hiatial hernia) and Colonoscopy (showed internal hemorrhoids + diverticular disease)
--- NOTE | 2021-04-25 11:06 | MHC.CM.PN ---
PT WILL DC HOME TODAY WITH NO SERVICES. FAMILY TO TRANSPORT
== END 2021-04-25 11:10 | disposition home or self-care (01) | DRG 378 ==
LOC: HO.ED 19:24 → HO.EDOVER 20:49 → HO.S3 04-24 00:26
PROVIDERS: Internal Medicine Gastroenterology; Admitting Provider Internal Medicine; Emergency Provider Emergency Medicine; PCP Internal Medicine; Visit Provider Family Medicine
PROC: 0DJD8ZZ Inspection of Lower Intestinal Tract, Via Natural or Artificial Opening Endoscopic (ICD-10-PCS; CPT 45378; principal; 2021-04-24 15:50)
DX: K57.31 Diverticulosis of large intestine without perforation or abscess with bleeding (principal); D62 Acute posthemorrhagic anemia; K44.9 Diaphragmatic hernia without obstruction or gangrene; G47.33 Obstructive sleep apnea (adult) (pediatric); Z99.89 Dependence on other enabling machines and devices; M79.7 Fibromyalgia; K64.8 Other hemorrhoids; Z20.822 Contact with and (suspected) exposure to COVID-19; Z79.1 Long term (current) use of non-steroidal anti-inflammatories (NSAID); Z79.51 Long term (current) use of inhaled steroids; Z79.899 Other long term (current) drug therapy
CPT/HCPCS: 36415; 74177; 80048; 80076; 81001; 82272; 83690; 85014; 85018; 85025; 85027; 86850; 86900; 86901; 87086; 87635; 96360; 99285; Q9967

== ENCOUNTER 2021-08-22 12:55 | Outpatient (REF) | payer MEDICARE, MEDICAID, SELFPAY ==
--- NOTE | ~2021-08-22 | US_ITS ---
EXAMINATION: US THYROID CLINICAL INFORMATION: Nontoxic multinodular goiter. COMPARISON: CT soft tissue neck without contrast 09/17/2020. Ultrasound thyroid soft tissues 05/17/2015. TECHNIQUE: Linear transducer grayscale and color Doppler examination with attention to the region of the thyroid. FINDINGS: SIZE: Measurements of the thyroid lobes and nodules are given in sagittal, anteroposterior and transverse dimensions respectively. Right Thyroid Lobe: 4.3 x 1.7 x 1.7 cm, volume 6.5 mL. Previously 4.6 x 1.5 x 1.6 cm, volume 5.8 mL. Parenchyma: The gland echotexture is homogeneous. Thyroid vascularity is normal. Left Thyroid Lobe: 4.3 x 1.2 x 1.5 cm, volume 4.1 mL. Previously 3.1 x 1.1 x 1.4 cm, volume 2.5 mL. Parenchyma: The gland echotexture is homogeneous. Thyroid vascularity is normal. Isthmus: 0.5 cm in maximum AP dimension. Previously 0.3 cm. Estimated total number of nodules greater than or equal to 1 cm: 0. Reconciliation Machine Operator nodules are described as follows: 1. Location: Left inferior. Size: 0.6 x 0.4 x 0.5 cm, volume 0.06 mL. Previously: New since the previous study. Nodule characteristics: Composition: Mixed cystic and solid (1). Echogenicity: Cannot be determined (1). Shape: Not taller than wide (0). Margins: Smooth (0). Echogenic Foci: None (0). ACR TI-RADS total points: 2 ACR TI-RADS category: 2 NODES: No lymphadenopathy is seen in the tissue surrounding the thyroid gland. US/US thyroid IMPRESSION: Unremarkable thyroid ultrasound. Small nonsuspicious nodule lower pole left thyroid lobe. ACR TI-RADS RECOMMENDATION REFERENCE: Ultrasound-guided fine-needle aspiration, followup ultrasound, no further follow up. * TR1 (0 point) and TR 2 (2 points): No FNA or follow up * TR3 (3 points): FNA if more than or equal to 2.5 cm in maximum dimension, followup ultrasound in 1, 3 and 5 years if 1.5 to 2.4 cm in maximum dimension. * TR4 (4-6 points): FNA if more than or equal to 1.5 cm in maximum dimension, followup ultrasound in 1, 2, 3 and 5 years if 1 to 1.4 cm in maximum dimension. * TR5 (more than or equal to 7 points): FNA if more than or equal to 1 cm in maximum dimension, followup ultrasound every year for 5 years if 0.5 to 0.9 cm in maximum dimension. * TR3, TR4 or TR5 nodules that are below the size threshold for follow up receive no follow up.
== END 2021-08-22 12:56 | disposition home or self-care (01) ==
LOC: HO.HMGCX 12:55
PROVIDERS: Visit Provider Internal Medicine
DX: E04.2 Nontoxic multinodular goiter (principal)
CPT/HCPCS: 76536

== ENCOUNTER 2022-02-14 08:34 | Outpatient (REF) | payer MEDICARE, MEDICAID, SELFPAY ==
--- NOTE | ~2022-02-14 | MM_ITS ---
EXAMINATION: MM SCREENING DIGITAL BREAST TOMOSYNTHESIS, BILATERAL CLINICAL INFORMATION: Screening. Asymptomatic. The lifetime risk of breast cancer based on the Tyrer-Cuzick Model is 7%. COMPARISON: Mammography: 04/07/2020, 04/02/2019, 03/10/2018 TECHNIQUE: Digital breast tomosynthesis is performed in both the craniocaudal and mediolateral oblique views along with computer-aided detection (CAD). Synthesized 2D images are generated from the tomosynthesis. FINDINGS: There are scattered areas of fibroglandular density (ACR BI-RADS breast composition Category b). There are no significant masses, abnormal calcifications, or other abnormalities. No developing density or architectural abnormality. There is some dermal calcifications versus fine deodorant artifact upper right axilla. Skin contours are smooth. MM/MM tomosynthesis screening BI IMPRESSION: No mammographic evidence of malignancy. ASSESSMENT: BI-RADS 2: Benign RECOMMENDATION: Routine annual mammography screening. This patient's information was entered into a reminder system with a target due date for their next mammogram.
--- NOTE | ~2022-02-14 | MM_ITS ---
EXAMINATION: BONE DENSITOMETRY CLINICAL INDICATION: Menopause. COMPARISON: Baseline BD dated 03/01/2009. TECHNIQUE: Using a [employer] DXA System (software version: 13.1) manufactured by [employer], dual-energy x-ray absorptiometry was performed of the lumbar spine and left hip. The images are of good technical quality. Summary results are attached. FINDINGS: AP SPINE L1-L4: Current: BMD 0.745 g/cm2, Z-score -2.2, T-score -3.6, osteoporosis, 22.2% decrease from baseline (<5% change is not significant). Baseline: BMD 0.958 g/cm2. LEFT FEMUR, NECK: Current: BMD 0.727 g/cm2, Z-score -0.8, T-score -2.2, osteopenia. Baseline: BMD 0.956 g/cm2. LEFT FEMUR, TOTAL: Current: BMD 0.752 g/cm2, Z-score -0.9, T-score -2.0, osteopenia, 27.5% decrease from baseline (<5% change is not significant). Baseline: BMD 1.037 g/cm2. IDENTIFIED RISK FACTORS: Menopause. HISTORY OF FRACTURE: None listed. MEDICATIONS: None listed. MM/XR DEXA axial skeleton IMPRESSION: 1. DIAGNOSIS: Osteoporosis based on the lowest T-score value of -3.6 in the lumbar spine applying World Health Organization criteria. 2. 10-YEAR FRACTURE RISK PREDICTION, FRAX: According to the guidelines, FRAX calculation should only be performed on patients in the osteopenia bone density category. Therefore, FRAX was not performed on this patient. 3. Treatment Recommendations: NOF guidelines recommend consideration for treatment in postmenopausal women and men age 50 and older presenting with the following: -A hip or vertebral (clinical or morphometric) fracture. -T-score less than or equal to -2.5 at the femoral neck or spine after appropriate evaluation to exclude secondary causes. -Low bone mass at the hip or spine and a 10-year fracture probability by FRAX of greater than or equal to 3% for hip fracture or greater than or equal to 20% for major osteoporotic fracture based on the [place] adapted WHO algorithm. 4. Other Recommendations: All treatment decisions require clinical judgment and consideration of individual patient factors, including patient preferences, comorbidities, previous drug use, risk factors not captured in the FRAX model (e.g. frailty, falls, vitamin D deficiency, increased bone turnover, interval significant decline in bone density) and possible under or overestimation of fracture risk by FRAX. Additional medical evaluation for secondary cause of low bone mineral density may be appropriate. FUTURE SCAN RECOMMENDATION: People with diagnosed cases of osteoporosis or at high risk for fracture should have regular bone mineral density tests. For patients eligible for Medicare, routine testing is allowed once every 2 years. The testing frequency can be increased to one year for patients who have rapidly progressing disease, those who are receiving or discontinuing medical therapy to restore bone mass, or have additional risk factors.
== END 2022-02-14 08:35 | disposition home or self-care (01) ==
LOC: HO.MAMMO 08:34
PROVIDERS: Visit Provider Advanced Practice Midwife
DX: Z12.31 Encounter for screening mammogram for malignant neoplasm of breast (principal); Z13.820 Encounter for screening for osteoporosis; Z78.0 Asymptomatic menopausal state
CPT/HCPCS: 77063; 77067; 77080

== ENCOUNTER 2022-07-30 12:46 | Outpatient (REF) | payer MEDICARE, MEDICAID, SELFPAY ==
--- NOTE | ~2022-07-30 | US_ITS ---
EXAMINATION: US THYROID CLINICAL INFORMATION: Thyroid nodules. COMPARISON: Thyroid ultrasound 08/22/2021 and 05/17/2015. CT soft tissue neck 09/17/2020. TECHNIQUE: Linear transducer grayscale and color Doppler examination with attention to the region of the thyroid. FINDINGS: SIZE: Measurements of the thyroid lobes and nodules are given in sagittal, anteroposterior and transverse dimensions respectively. Right Thyroid Lobe: 4.2 x 1.6 x 1.8 cm, volume 6.1 mL. Previously 4.3 x 1.7 x 1.7 cm, volume 6.5 mL. Parenchyma: The gland echotexture is homogeneous. Thyroid vascularity is normal. Left Thyroid Lobe: 4.1 x 1.6 x 1.4 cm, volume 4.7 mL. Previously 4.3 x 1.2 x 1.5 cm, volume 4.1 mL. Parenchyma: The gland echotexture is homogeneous. Thyroid vascularity is normal. Isthmus: 0.5 cm in maximum AP dimension. Previously 0.5 cm. Estimated total number of nodules greater than or equal to 1 cm: 0. Contract Forester nodules are described as follows: 1. Location: Left lower pole. Size: 0.6 x 0.4 x 0.6 cm, volume 0.08 mL. Previously: 0.6 x 0.4 x 0.5 cm, volume 0.06 mL. Nodule characteristics: Composition: Mixed cystic and solid (1). Echogenicity: Cannot be determined (1). Shape: Not taller than wide (0). Margins: Smooth (0). Echogenic Foci: None (0). ACR TI-RADS total points: 2 Previous: 2 ACR TI-RADS category: 2 Previous: 2 Significant change in size (>/= 20% in 2 dimensions and minimal increase of 2 mm or 50% or greater increase in volume): No Change in features: No Change in ACR TI-RADS risk category: No NODES: No lymphadenopathy is seen in the tissue surrounding the thyroid gland. US/US thyroid IMPRESSION: A small left thyroid lobe nodule is seen, as detailed. ACR TI-RADS RECOMMENDATION REFERENCE: Ultrasound-guided fine-needle aspiration, followup ultrasound, no further follow up. * TR1 (0 point) and TR2 (2 points): No FNA or follow up * TR3 (3 points): FNA if more than or equal to 2.5 cm in maximum dimension, followup ultrasound in 1, 3 and 5 years if 1.5 to 2.4 cm in maximum dimension. * TR4 (4-6 points): FNA if more than or equal to 1.5 cm in maximum dimension, followup ultrasound in 1, 2, 3 and 5 years if 1 to 1.4 cm in maximum dimension. * TR5 (more than or equal to 7 points): FNA if more than or equal to 1 cm in maximum dimension, followup ultrasound every year for 5 years if 0.5 to 0.9 cm in maximum dimension. * TR3, TR4 or TR5 nodules that are below the size threshold for follow up receive no follow up.
== END 2022-07-30 12:47 | disposition home or self-care (01) ==
LOC: HO.US 12:46
PROVIDERS: PCP Internal Medicine; Visit Provider Internal Medicine
DX: E04.2 Nontoxic multinodular goiter (principal)
CPT/HCPCS: 76536

== ENCOUNTER 2023-02-05 10:04 | Outpatient (REF) | payer MEDICARE, MEDICAID, SELFPAY ==
--- NOTE | ~2023-02-05 | XR_ITS ---
EXAMINATION: XR SHOULDER, RIGHT CLINICAL INFORMATION: Pain of 2 months' duration, without injury. COMPARISON: Radiographs dated 02/15/2021. TECHNIQUE: AP external rotation, Grashey, scapular Y, and axillary views of the right shoulder. FINDINGS: The bones and soft tissues are normal. No fracture. Glenohumeral and acromioclavicular alignment is anatomic with normal joint space. No abnormal soft tissue calcifications. XR/XR shoulder RT min 2V IMPRESSION: Normal right shoulder.
--- NOTE | ~2023-02-05 | XR_ITS ---
EXAMINATION: XR FOOT, RIGHT CLINICAL INFORMATION: Pain without injury. COMPARISON: Radiographs dated 04/27/2018. TECHNIQUE: AP, lateral, and oblique views of the right foot. FINDINGS: There is bony demineralization. There are mild second through fourth hammertoe configurations. There is no fracture, dislocation or right ankle joint effusion. No focal soft tissue swelling, gas or foreign body is seen. XR/XR foot RT min 3V IMPRESSION: 1. There are mild right second through fourth hammertoe configurations. 2. No fracture, dislocation or right ankle joint effusion is seen.
== END 2023-02-05 10:05 | disposition home or self-care (01) ==
LOC: HO.HHCX 10:04
PROVIDERS: Visit Provider Internal Medicine
DX: M79.671 Pain in right foot (principal); M25.511 Pain in right shoulder
CPT/HCPCS: 73030; 73630

== ENCOUNTER 2023-02-19 08:55 | Outpatient (REF) | payer MEDICARE, MEDICAID, SELFPAY ==
[2023-02-19 11:46] LABS: MANUAL DIFF FLAG NO
[2023-02-19 11:57] LABS: Basophils Absolute Auto 0.1 X10*3/uL (0.0-0.2); Basophils Percent Auto 1.4 % (0-2); Eosinophils Absolute Auto 0.3 X10*3/uL (0.0-0.4); Eosinophils Percent Auto 6.6 % (0-4); Hematocrit 40.9 % (37.0-47.0); Hemoglobin 13.3 g/dl (12.0-16.0); Imm Gran Abs Auto 0.01 X10*3/uL (0.00-0.03); Imm Gran Pct Auto 0.2 % (0.0-0.4); Lymphocytes Absolute Auto 1.7 X10*3/uL (1.2-4.9); Lymphocytes Percent Auto 33.5 % (20-40); Mean Corpuscular HGB Conc 32.5 g/dl (31.0-35.0); Mean Corpuscular Hemoglobin 31.7 pg (27.0-33.0); Mean Corpuscular Volume 97.6 fL (80.0-98.0); Mean Platelet Volume 9.6 fL (9.4-12.3); Monocytes Absolute Auto 0.6 X10*3/uL (0.1-1.2); Monocytes Percent Auto 12.6 % (2-11); Neutrophils Absolute Auto 2.3 x10*3/uL (2.0-8.3); Neutrophils Percent Auto 45.7 % (45-73); Platelet Count 378 X10*3/uL (160-400); Red Blood Count 4.19 X10*6/uL (4.20-5.50); Red Cell Distribution Width 12.7 % (11.0-16.0)
== END 2023-02-19 08:56 | disposition home or self-care (01) ==
LOC: HO.HHCL 08:55
PROVIDERS: Visit Provider Internal Medicine
DX: Z13.89 Encounter for screening for other disorder (principal)
CPT/HCPCS: 36415; 80048; 80076; 85025

== ENCOUNTER 2023-02-19 14:24 | Outpatient (REF) | payer MEDICARE, MEDICAID, SELFPAY ==
--- NOTE | ~2023-02-19 | US_ITS ---
EXAMINATION: MM DIAGNOSTIC DIGITAL BREAST TOMOSYNTHESIS, BILATERAL US BREAST LIMITED, LEFT MAMMOGRAPHY: CLINICAL INFORMATION: Patient complaining of left axillary palpable abnormality. Patient also due for bilateral screening exam. COMPARISON: Mammography: 02/14/2022, 04/07/2020, 03/10/2018. TECHNIQUE: Digital breast tomosynthesis is performed in both the craniocaudal and mediolateral oblique views along with computer-aided detection (CAD). Synthesized 2D images are generated from the tomosynthesis. In addition, a 3-D full-field left MLO exaggerated axillary view was performed. FINDINGS: There are scattered areas of fibroglandular density (ACR BI-RADS breast composition Category b). There are benign dystrophic and benign vascular calcifications in both breasts. There is a marker over the left high axillary region, marking the region of palpable concern. There is no underlying mass or other mammographic abnormality. There are no suspicious masses, suspicious grouped calcifications, or areas of architectural distortion. The parenchymal pattern is stable from prior exams. ULTRASOUND: CLINICAL INFORMATION: Patient complaining of left axillary palpable abnormality. COMPARISON: None relevant. TECHNIQUE: Targeted sonographic evaluation was performed using a high frequency linear transducer. Attention was given to the left axillary region as directed by the patient. Selected archived documentation. FINDINGS: LEFT BREAST: There is a mixture of fatty and fibroglandular tissue. No suspicious mass is seen. There is no pathologic acoustic shadowing. There is no axillary adenopathy. Prominent left axillary vein is present, which appears to be the structure the patient is feeling. US/US breast LT limited mamm only IMPRESSION: There are no findings suspicious for malignancy. Palpable left axillary abnormality demonstrates no suspicious abnormalities. The patient appears to be feeling a prominent left axillary vein. OVERALL ASSESSMENT: Mammography: BI-RADS 2 - Benign Findings Ultrasound: BI-RADS 2 - Benign Findings RECOMMENDATION: 1 year F/U Results were provided to the patient at time of visit by the technologist. This patient's information was entered into a reminder system with a target due date for their next mammogram.
== END 2023-02-19 14:25 | disposition home or self-care (01) ==
LOC: HO.MAMMO 14:24
PROVIDERS: PCP Internal Medicine; Visit Provider Internal Medicine
DX: N64.4 Mastodynia (principal)
CPT/HCPCS: 36415; 76642; 77062; 77066; 85025

== ENCOUNTER → 2023-02-19 14:30 | Outpatient (BNV) | payer MEDICARE, MEDICAID, SELFPAY | PROVIDERS: PCP Internal Medicine; Visit Provider Radiology Diagnostic Radiology | DX: R92.8 Other abnormal and inconclusive findings on diagnostic imaging of breast (principal) | CPT/HCPCS: 76882; 77062; 77066; G0279 ==

== ENCOUNTER 2023-02-24 10:56 | Outpatient (REF) | payer MEDICARE, MEDICAID, SELFPAY ==
[2023-02-24 14:07] LABS: Alanine Aminotransferase 29 U/L (0-31); Albumin Level 3.9 g/dL (3.5-5.0); Alkaline Phosphatase 87 U/L (39-117); Anion Gap 12 (12-20); Aspartate Amino Transferase 30 U/L (5-31); Bilirubin Direct 0.1 mg/dL (0.0-0.5); Bilirubin Total 0.4 mg/dL (0.0-1.0); Blood Urea Nitrogen 13 mg/dL (9-16); Calcium 9.3 mg/dL (8.4-10.2); Carbon Dioxide 25 mmol/L (22-29); Chloride 109 mmol/L (96-108); Estimated Glomerular Filt Rate > 60; Glucose Random 100 mg/dL (60-115); Potassium 3.9 mmol/L (3.3-5.1); Sodium 142 mmol/L (135-145); Total Protein 7.6 g/dL (6.5-8.0)
== END 2023-02-24 10:57 | disposition home or self-care (01) ==
LOC: HO.HHCL 10:56
PROVIDERS: Visit Provider Internal Medicine
DX: E04.2 Nontoxic multinodular goiter (principal)
CPT/HCPCS: 36415; 80048; 80076

== ENCOUNTER 2023-03-15 09:25 | Emergency (ER) | payer MEDICARE, MEDICAID, SELFPAY ==
[2023-03-15 09:29] VITALS: BP 148/79; PULSE 84; RESP 20; TEMP 36.4; O2SAT 99; BMI 34.8
--- NOTE | 2023-03-15 10:01 | ED.ASTHMA ---
HPI - Asthma General Chief Complaint: Dyspnea Stated Complaint: Pain when breathing Time Seen by Provider: 03/15/23 09:49 Source: patient and old records reviewed Mode of arrival: ambulatory Limitations: no limitations History of Present Illness HPI Narrative: 67 yo female with PMH of asthma, GERD and GI bleed, vaccinated for COVID x 3 here with c/o sinus pressures, headaches, cough and dyspnea with pleuritic chest pain x 3 days. 3 negative covid tests at home, no travel, has wheezing when she coughs. Has not used and inhaler or nebulizer. No fevers. Has fully body aches. No known sick contacts MD complaint: asthma attack , shortness of breath and wheezing Onset (ago): day(s) (3) Severity: moderate Associated symptoms: productive cough and chest pain Asthma History: adult onset Related Data Home Medications Medication Instructions Recorded Confirmed fluticasone propionate 50 1 spray intranasal DAILY PRN 04/23/21 04/23/21 mcg/actuation nasal Allergy Symptoms spray,suspension ibuprofen 800 mg tablet 1 tab PO DAILY 04/23/21 04/23/21 Previous Rx's Medication Instructions Recorded omeprazole 20 mg capsule,delayed 20 mg PO DAILY #30 caps 04/25/21 release polyethylene glycol 3350 17 17 g PO DAILY #850 grams 04/25/21 gram/dose oral powder (Miralax) sennosides 8.6 mg-docusate sodium 1 tab-cap PO BEDTIME #30 tabs 04/25/21 50 mg tablet (Colace 2-In-1) azithromycin 250 mg tablet See Rx Instructions PO .COMPLEX #6 03/15/23 tabs prednisone 20 mg tablet 40 mg (2 x 20 mg) PO DAILY 5 days 03/15/23 #10 tabs Allergies Allergy/AdvReac Type Severity Reaction Status Date / Time No Known Allergies Allergy Verified 03/15/23 09:33 Review of Systems Review of Systems: Constitutional : No Fever, No Chills ENT/Mouth : No Hoarseness, No sore throat, pos Rhinorrhea Eyes: No Redness, No Discharge, No Vision Changes Cardiovascular : No Chest Pain, positive SOB, positive Dyspnea on Exertion, No Edema Respiratory : positive Cough, No Sputum, positive Wheezing, Gastrointestinal : No Nausea, No Vomiting, No Diarrhea, No abdominal Pain Genitourinary : No Dysuria, No Hematuria Musculoskeletal : No joint pain, No Myalgias Skin : No rash Neuro : No Weakness, No Numbness, No Headache Psych : No anxiety, depression Heme/Lymph: No Bruising, No Bleeding Endocrine : No Polyuria, No Polydipsia All other systems reviewed and are negative [facility] Past Medical History Attestation statement: The following information was validated with the patient. Source: old records reviewed Medical History Fibromyalgia AYANA (obstructive sleep apnea) Rectal bleed Surgical History History of radiofrequency ablation procedure for cardiac arrhythmia Hx of colonoscopy Family History Family History (Updated 04/24/21 @ 06:29 by Maykel Jmienez MD) Mother Breast cancer Father Alzheimer's dementia Hypertension Social History Social History Household Members: Family Household Members Other:: grandson Housing: Apartment Do you presently have visiting nurse or other home services: Yes Alcohol intake: never Patient Tobacco Use Status: Never used Tobacco Smoked in Last 30 Days: No Use of substances other than those prescribed or required for medical reasons: No Advance Directives: No service: No Current occupational status: disabled Physical Exam Vital Signs: Vital Signs: Last Vital Signs Temp 98.1 F 03/15/23 12:34 Pulse 91 03/15/23 12:34 Resp 18 03/15/23 12:34 BP 137/79 03/15/23 12:34 Pulse Ox 96 03/15/23 12:34 O2 Del Method Room Air 03/15/23 12:34 BMI result Body Mass Index 34.8 Appearance: Alert. Oriented X3. No acute distress. Eyes: Pupils equal, round and reactive to light. ENT: Pharynx normal. Neck: Normal inspection. Neck supple. CVS: Normal heart rate and rhythm. Pulses normal. Respiratory: No respiratory distress. Breath sounds diminished with upper exp wheezes noted Abdomen: Soft and nontender. Skin: Skin warm and dry. Normal skin color. Normal skin turgor. Extremities: No lower extremity edema. No calf ttp Neuro: Oriented X 3. No motor deficit. No sensory deficit. Medications Administered Discontinued Medications Generic Name Dose Route Start Last Admin Trade Name Freq PRN Reason Stop Dose Admin Albuterol Sulfate 2 puff 03/15/23 10:55 03/15/23 11:01 Albuterol Sulfate 90 Mcg 8 Gm Inhaler INHALE 03/15/23 10:56 2 puff ONCE ONE Administration Methylprednisolone Sodium Succinate 60 mg 03/15/23 10:10 03/15/23 10:54 Methylprednisolone Sod Succ 125 Mg/2 Ml Vial IVPUSH 03/15/23 10:11 60 mg ONCE ONE Administration Medical Decision Making Medical Decision Making [facility] Narrative: 67 yo female with PMH of asthma, GERD and GI bleed, vaccinated for COVID x 3 here with c/o body aches, viral like syndrome, pleuritic chest pain and wheezing at this time labs, ddimer, troponin, CXR, viral panel and neb treatment with IV steroids - this seems more viral with asthma exacerbation vs pneumonia/acs/VTE. she is not in distress and not hypoxic. Differential Diagnosis Differential Diagnoses: The differential diagnosis associated with the presentation includes viral infection, asthma, atypical chest pain, VTE, pneumonia Admission/Observation Consideration of admission/observation: Escalation of care including admission/observation considered no hypoxia feels better stable for DC Lab Data [facility] Lab Attestation statement: I reviewed the patient's lab results. 03/15/23 10:22 03/15/23 10:22 Labs: Lab Results 03/15/23 Range/Units 10:22 WBC 4.9 (4.8-10.8) X10*3/uL RBC 3.99 L (4.20-5.50) X10*6/uL Hgb 12.5 (12.0-16.0) g/dl Hct 38.2 (37.0-47.0) % MCV 95.7 (80.0-98.0) fL MCH 31.3 (27.0-33.0) pg MCHC 32.7 (31.0-35.0) g/dl RDW 12.5 (11.0-16.0) % Plt Count 354 (160-400) X10*3/uL MPV 8.9 L (9.4-12.3) fL Immature Gran % (Auto) 0.2 (0.0-0.4) % Neut % (Auto) 43.7 L (45-73) % Lymph % (Auto) 35.9 (20-40) % Wilkinson % (Auto) 14.0 H (2-11) % Eos % (Auto) 5.2 H (0-4) % Baso % (Auto) 1.0 (0-2) % Lymph # (Auto) 1.7 (1.2-4.9) X10*3/uL Wilkinson # (Auto) 0.7 (0.1-1.2) X10*3/uL Eos # (Auto) 0.3 (0.0-0.4) X10*3/uL Baso # (Auto) 0.1 (0.0-0.2) X10*3/uL Abs Immat Gran (auto) 0.01 (0.00-0.03) X10*3/uL Absolute Neuts (auto) 2.1 (2.0-8.3) x10*3/uL Absolute Nucleated RBC 0.000 (0.0-0.012) X10*3/uL Nucleated RBC % (auto) 0.0 (0.0-0.2) /100WBC PT 10.8 L (11.1-13.3) SEC INR 0.9 (0.9-1.1) D-Dimer High Sensitivty < 150 NG/ML Sodium 143 (135-145) mmol/L Potassium 3.9 (3.3-5.1) mmol/L Chloride 109 H (96-108) mmol/L Carbon Dioxide 25 (22-29) mmol/L Anion Gap 13 (12-20) BUN 13 (9-16) mg/dL Creatinine 0.63 (0.5-1.4) mg/dL Estim Creat Clear Calc 58.6 Estimated GFR > 60 Random Glucose 100 (60-115) mg/dL Calcium 9.4 (8.4-10.2) mg/dL Total Bilirubin 0.4 (0.0-1.0) mg/dL AST 35 H (5-31) U/L ALT 35 H (0-31) U/L Alkaline Phosphatase 91 (39-117) U/L Troponin I High Sens 10.7 (<3.5-17.0) ng/L Total Protein 7.6 (6.5-8.0) g/dL Albumin 3.8 (3.5-5.0) g/dL Influenza Type A (PCR) NEGATIVE (Negative) Influenza Type B (PCR) NEGATIVE (Negative) RSV RNA Qual (PCR) NEGATIVE (Negative) SARS-CoV-2 RNA (RT-PCR) NEGATIVE (Negative) Independent Interpretation I performed an independent interpretation of an: EKG and Plain X-Ray (no pneumonia) Interpretation: Rate: 75 Rhythm: NSR [place]: left Normal P waves. Normal MICHELE. Normal QRS complex. ST T wave : normal no JENNIFER, inverted t wave III qTC: normal prior studies: no acute ischemia The study has been interpreted contemporaneously by me. . Radiology Impression Discussion of test interpretation with radiology: I have reviewed the radiologist's reading. External Record Review External record reviewed: Inpatient record Prescription Management I considered prescription management with: Antibiotic and Other Discharge Plan Discharge Clinical Impression: Bronchitis Patient Disposition: Home, Self-Care Instructions: Acute Bronchitis (ED) Additional Instructions: return for worsening pain, breathing, fevers, no improvement or any other concerns. use inhaler 2 puffs every 2 to 4 hours for shortness of breath or wheezing. Regrese si el dolor, la respiraci?n, la fiebre empeoran, no hay mejor?a o cualquier otra inquietud. use el inhalador 2 inhalaciones cada 2 a 4 horas para la dificultad para respirar o sibilancias. no flu no covid Prescriptions: New azithromycin 250 mg tablet See Rx Instructions PO .COMPLEX Qty: 6 0RF Rx Instructions: For 250 mg dose pack: take 500 mg today (day 1), then 250 mg for 4 days (days 2-5) prednisone 20 mg tablet 40 mg PO DAILY 5 Days Qty: 10 0RF No Action ibuprofen 800 mg tablet 1 tab PO DAILY fluticasone propionate 50 mcg/actuation spray,suspension 1 spray intranasal DAILY PRN (Reason: Allergy Symptoms) omeprazole 20 mg capsule,delayed release(DR/EC) 20 mg PO DAILY Qty: 30 0RF polyethylene glycol 3350 [Miralax] 17 gram/dose powder 17 g PO DAILY Qty: 850 0RF sennosides-docusate sodium [Colace 2-In-1] 8.6-50 mg tablet 1 tab-cap PO BEDTIME Qty: 30 0RF Interventions: ED Discharge Assessment Last Done: 03/15/23 13:10 Discharge Date/Time: 03/15/23 13:10 Print Language: Korean
[2023-03-15 10:30] VITALS: BP 142/79; PULSE 81; RESP 20; TEMP 36.8; O2SAT 96
--- NOTE | 2023-03-15 11:03 | PC.NURSE ---
patient a&ox3, iv inserted, swab performed, vss, pt lungs clear throughout, pt medicated per order, call peters within reach, will continue to monitor
[2023-03-15 11:04] VITALS: PULSE 69; RESP 18; O2SAT 96
[2023-03-15 12:34] VITALS: BP 137/79; PULSE 91; RESP 18; TEMP 36.7; O2SAT 96
--- NOTE | 2023-03-15 12:35 | PC.NURSE ---
patient a&ox3, vss, denies pain/discomfort, call peters within reach, will continue to monitor
== END 2023-03-15 13:10 | disposition home or self-care (01) ==
PROVIDERS: Emergency Provider Emergency Medicine; PCP Internal Medicine
DX: J40 Bronchitis, not specified as acute or chronic (principal); R06.02 Shortness of breath; Z20.822 Contact with and (suspected) exposure to COVID-19; Z11.52 Encounter for screening for COVID-19; Z79.899 Other long term (current) drug therapy
CPT/HCPCS: 0241U; 36415; 71046; 80053; 84484; 85025; 85379; 85610; 93005; 94640; 96374; 99284; 99285; J2930

== ENCOUNTER 2023-04-07 12:20 | Emergency (ER) | payer MEDICARE, MEDICAID, SELFPAY ==
--- NOTE | ~2023-04-07 | US_ITS ---
EXAMINATION: US VENOUS ULTRASOUND WITH DOPPLER LOWER EXTREMITY, LEFT CLINICAL INFORMATION: Leg edema and pain and bruising COMPARISON: None available. TECHNIQUE: Ultrasound of the deep veins is performed from the hip to the calf with compression sonography and color and pulse Doppler assessment. Spectral analysis with color-flow imaging is performed. FINDINGS: There is normal venous compression and respiratory variation and augmented flow. The visualized common femoral vein, superficial femoral vein, profunda femoral vein, popliteal vein, and the trifurcation region shows no evidence of deep venous thrombosis. There is no significant popliteal fossa cyst. US/US venous duplex LE LT IMPRESSION: No evidence of deep vein thrombosis in the left femoral popliteal system.
[2023-04-07 12:28] VITALS: BP 130/77; PULSE 84; RESP 17; TEMP 36.4; O2SAT 98; BMI 27.8
--- NOTE | 2023-04-07 12:29 | ED_ITS ---
HPI - Extremity Injury (Lower) General Chief Complaint: Extremity Problem Stated Complaint: L Foot Pain Time Seen by Provider: 04/07/23 13:37 Source: patient and RN notes reviewed Mode of arrival: ambulatory Limitations: no limitations History of Present Illness HPI Narrative: This is a 67-year-old female, with a history of fibromyalgia, presenting to the emergency department with complaints of abnormal sensation to her left leg which occurred prior to her arrival today. Patient states that while she was in the kitchen she noticed a sensation as if there was cold water dripping down her leg. She states that this all lasted for several seconds. She states that resolved on its own. Patient reports that she has ongoing chronic pain in her back and her legs and is currently being managed through her primary care physician. She denies any recent trauma or injury to her leg. No history of blood clots. No recent travel or surgeries. No recent hospitalizations. She denies any chest pain or shortness of breath. She is otherwise feeling well no other complaints or concerns at this time. Onset (ago): hour(s) Place: home Relieving factors: nothing Exacerbating factors: nothing Other symptoms: none Related Data Home Medications Medication Instructions Recorded Confirmed fluticasone propionate 50 1 spray intranasal DAILY PRN 04/23/21 04/23/21 mcg/actuation nasal Allergy Symptoms spray,suspension ibuprofen 800 mg tablet 1 tab PO DAILY 04/23/21 04/23/21 Previous Rx's Medication Instructions Recorded omeprazole 20 mg capsule,delayed 20 mg PO DAILY #30 caps 04/25/21 release polyethylene glycol 3350 17 17 g PO DAILY #850 grams 04/25/21 gram/dose oral powder (Miralax) sennosides 8.6 mg-docusate sodium 1 tab-cap PO BEDTIME #30 tabs 04/25/21 50 mg tablet (Colace 2-In-1) azithromycin 250 mg tablet See Rx Instructions PO .COMPLEX #6 03/15/23 tabs prednisone 20 mg tablet 40 mg (2 x 20 mg) PO DAILY 5 days 03/15/23 #10 tabs Allergies Allergy/AdvReac Type Severity Reaction Status Date / Time No Known Allergies Allergy Verified 03/15/23 09:33 Review of Systems 2 Review of Systems: Yes all other systems are reviewed and are negative Constitutional: Constitutional: Reports as per [facility] Past Medical History Attestation statement: The following information was validated with the patient. Medical History Fibromyalgia AYANA (obstructive sleep apnea) Rectal bleed Surgical History History of radiofrequency ablation procedure for cardiac arrhythmia Hx of colonoscopy Family History Family History Mother Breast cancer Father Alzheimer's dementia Hypertension Social History Social History Household Members: Family Household Members Other:: grandson Housing: Apartment Do you presently have visiting nurse or other home services: Yes Alcohol intake: never Patient Tobacco Use Status: Never used Tobacco Advance Directives: Yes Advance Directives on File: Yes Advance Directives Date on File: 04/26/21 service: No Current occupational status: disabled Physical Exam Vital Signs: Vital Signs: Last Vital Signs Temp 97.6 F 04/07/23 12:28 Pulse 84 04/07/23 12:28 Resp 17 04/07/23 12:28 BP 130/77 04/07/23 12:28 Pulse Ox 98 04/07/23 12:28 O2 Del Method Room Air 04/07/23 12:28 BMI result Body Mass Index 27.8 Const: General: cooperative, comfortable and no acute distress Orientation/consciousness: patient oriented x3 Limitations: no limitations HEENT: Head: Yes normal to inspection, Yes normocephalic and Yes atraumatic Ears: hearing grossly normal bilaterally General nose exam: Normal external nose present Face and sinus: Yes normal facial exam Mouth: Normal oral and palatal mucosa present, oropharynx normal and moist mucous membranes Throat: Yes posterior oropharynx normal Eyes: General: appearance normal, both eyes and all related structures Eyelids: Yes eyelids normal Conjunctivae: conjunctivae normal Sclerae: sclerae normal Pupils: Equal, round and reactive pupils present EOM: EOMs intact bilaterally Neck: Neck: Yes normal visual inspection, Yes full ROM and Yes no lymphadenopathy Lymphatic: no lymphadenopathy noted Chest: Chest palpation & inspection: normal inspection of the chest Resp: Effort & Inspection: normal respiratory effort and able to speak in complete sentences Auscultation: clear to auscultation bilaterally, no crackles, no rales, no rhonchi and no wheezes Cardio: Rate: regular rate Rhythm: regular rhythm Heart sounds: S1 normal heart sound present and S2 normal heart sound present GI: Inspection: Yes normal to inspection Skin: General skin exam: no rashes or lesions noted Trauma: no lacerations or abrasions Wounds: no wounds Neuro: General: patient oriented x3 and moves all extremities Cranial nerves: Yes Equal, round and reactive pupils present Extrem: Other: Left leg, no calf tenderness leg is well perfused. No deformities noted. Mild ecchymosis noted to the anterior henry DP pulses 2+ General: Yes normal to inspection Right upper extremity: normal to inspection Left upper extremity: normal to inspection Right lower extremity: normal to inspection Left lower extremity: normal to inspection Course Course Course Narrative: RME: 67yo F w/PMHx fibromyalgia, AYANA, c/o LLE bruising, pain and swelling x today. Describes as water going down inside. Admits to pain in b/l LE x few weeks, however didn't think anything of it 2/2 to her chronic Fibromyalgia pain. Denies injury. Denies taking AC, SOB LLE with swelling to anterior henry & ecchymosis US ordered Full HPI, ROS and PE to be performed by primary ED provider. Medical Decision Making Medical Decision Making [facility] Narrative: 67-year-old female, with a history of fibromyalgia, presenting to the emergency department with complaints of abnormal sensation down her left leg which lasted for several seconds and resolved on its own. Patient has longstanding history of chronic pain and is currently being managed by her primary care physician. Vital signs within normal limits. Exam findings with ecchymosis on the anterior henry, no calf tenderness. Full range of motion, patient is ambulatory. Patient has no back tenderness on examination. No urinary or bowel incontinence she has chronic urgent stress incontinence which she has had for years, unchanged since the onset of her symptoms today. Leg is well perfused, with note calf tenderness. Given normal exam findings, and a negative ultrasound, patient stable for discharge with close monitoring of recurrence of symptoms. Advised to follow-up with primary care physician regarding her visit. Patient understands and agrees with plan. Patient stable for discharge. Differential Diagnosis Differential Diagnoses: The differential diagnosis associated with the presenta tion includes DVT, lumbar radiculopathy, sciatica Radiology Impression Discussion of test interpretation with radiology: I have reviewed the radiologist's reading. Radiologist Impression: EXAMINATION: US VENOUS ULTRASOUND WITH DOPPLER LOWER EXTREMITY, LEFT CLINICAL INFORMATION: Leg edema and pain and bruising COMPARISON: None available. TECHNIQUE: Ultrasound of the deep veins is performed from the hip to the calf with compression sonography and color and pulse Doppler assessment. Spectral analysis with color-flow imaging is performed. FINDINGS: There is normal venous compression and respiratory variation and augmented flow. The visualized common femoral vein, superficial femoral vein, profunda femoral vein, popliteal vein, and the trifurcation region shows no evidence of deep venous thrombosis. There is no significant popliteal fossa cyst. US/US venous duplex LE LT IMPRESSION: No evidence of deep vein thrombosis in the left femoral popliteal system. Dictated By: Keith Ariza MD Discharge Plan Discharge Clinical Impression: Radiculopathy of leg Patient Disposition: Home, Self-Care Additional Instructions: It is unclear what caused you to have this sensation that you had going down her left leg however your physical exam today was reassuring. Your ultrasound of your leg did not show a blood clot. Please follow-up with your primary care physician regarding this visit. If any new or worsening symptoms occur, please return for re-evaluation. No est? mely qu? caus? que usted tuviera esta sensaci?n que ten?a bajando por carnes pierna izquierda, sin embargo, carnes examen f?sico de hoy fue tranquilizador. La ecograf?a de carnes pierna no mostr? aminata?n co?gulo de miki. Gonzalo un seguimiento con carnes m?dico de atenci?n primaria con respecto a esta visita. Si se presenta alg?n s?ntoma nuevo o que empeora, regrese para dylon nueva evaluaci?n. Prescriptions: No Action ibuprofen 800 mg tablet 1 tab PO DAILY fluticasone propionate 50 mcg/actuation spray,suspension 1 spray intranasal DAILY PRN (Reason: Allergy Symptoms) omeprazole 20 mg capsule,delayed release(DR/EC) 20 mg PO DAILY Qty: 30 0RF polyethylene glycol 3350 [Miralax] 17 gram/dose powder 17 g PO DAILY Qty: 850 0RF sennosides-docusate sodium [Colace 2-In-1] 8.6-50 mg tablet 1 tab-cap PO BEDTIME Qty: 30 0RF azithromycin 250 mg tablet See Rx Instructions PO .COMPLEX Qty: 6 0RF Rx Instructions: For 250 mg dose pack: take 500 mg today (day 1), then 250 mg for 4 days (days 2-5) prednisone 20 mg tablet 40 mg PO DAILY 5 Days Qty: 10 0RF Interventions: ED Discharge Assessment Last Done: 04/07/23 14:19 Discharge Date/Time: 04/07/23 14:20 Print Language: Filipino
== END 2023-04-07 14:20 | disposition home or self-care (01) ==
PROVIDERS: Emergency Provider Emergency Medicine; PCP Internal Medicine
DX: M54.16 Radiculopathy, lumbar region (principal); M79.605 Pain in left leg; M79.7 Fibromyalgia; Z79.899 Other long term (current) drug therapy
CPT/HCPCS: 93971; 99282; 99284

== ENCOUNTER 2023-06-11 11:12 | Outpatient (AMB) | payer MEDICARE, MEDICAID, SELFPAY ==
--- NOTE | 2023-06-11 11:19 | MHC.OFFVIS ---
Intake Vital Signs 06/11/23 11:20 Height 4 ft 11 in Weight 139 lb BMI 28.1 BP 110/72 Blood Pressure Location Rt brachial Position Sitting Pulse 92 Pulse Source Pulse Oximeter Pulse Oximetry (%) 98 Oxygen Delivery Method Room Air Intake Visit Reasons: referral to Vascular for bilateral Intake Note: Pt presents to the office today for bilateral . Pt states she has had pain for a while but states recently it has been getting worse. Pt states her pain is from the knees down to her feet in both legs. Pt states she gets swelling in her ankles. Pt states she has not tried compression stockings. Pt states right now she believes her left leg is worse than her right. Locomotive Operator Required: Yes Locomotive Operator Language: Service Specialist Name: Taylor([id number]) Allergies No Known Allergies Allergy (Verified 06/11/23 11:21) HPI referral to Vascular for bilateral HPI Details Complex 67-year-old female referred for swelling and pain of the lower extremities. She describes it more so as left lower extremity pain more towards the ankle area. She does have a prior diagnosis of fibromyalgia. That has been affecting her quite a bit. She is quite concerned about this overall. She does not note any superficial varicosities but is concerned about the swelling overall. She presents to us for venous evaluation. Patient denies any history of DVT/ PE. Patient denies any history of phlebitis. Trial of compression includes - [id number] They now present for vascular evaluation regarding their varicose veins. [facility] Medical History Fibromyalgia AYANA (obstructive sleep apnea) Rectal bleed Surgical History History of radiofrequency ablation procedure for cardiac arrhythmia Hx of colonoscopy Family History Mother Breast cancer Father Alzheimer's dementia Hypertension Social History Household Members: Family Household Members Other:: grandson Housing: Apartment Do you presently have visiting nurse or other home services: Yes Alcohol intake: never Patient Tobacco Use Status: Never used Tobacco Advance Directives Date on File: 04/26/21 service: No Current occupational status: disabled Review of Systems Const All systems reviewed & are unremarkable except as noted in HPI and below Reports no additional complaints ENT Reports Normal hearing present Card Denies chest pain, Denies chest pain at rest, Denies chest pain with activity and Denies pedal edema Resp Denies cough GI Denies abdominal pain Musc Denies abnormal gait, Denies muscle cramps and Denies radiating pain into limb Skin/Breast Denies skin ulcer and Denies wounds Neuro Reports Normal hearing present and Denies abnormal gait Psych Reports no additional complaints Physical Exam Vital Signs: Last Vital Signs Pulse 92 06/11/23 11:20 BP 110/72 06/11/23 11:20 Pulse Ox 98 06/11/23 11:20 Oxygen Delivery Method Room Air 06/11/23 11:20 BMI result Body Mass Index 28.1 Const General: cooperative, healthy appearing and comfortable Orientation/consciousness: oriented to person, oriented to place and oriented to time HEENT Head: Yes normal to inspection Neck Neck: Yes normal visual inspection Carotids: no bruits Chest Chest palpation & inspection: normal inspection of the chest Resp Effort & Inspection: normal respiratory effort and able to speak in complete sentences Auscultation: clear to auscultation bilaterally, no crackles, no rales, no rhonchi and no wheezes Cardio Rate: regular rate Rhythm: regular rhythm Heart sounds: S1 normal heart sound present and S2 normal heart sound present Bruits: no carotid bruits Peripheral pulses: Peripheral pulses 2+ throughout GI Inspection: Yes normal to inspection Skin Wounds: no wounds Hair: normal Neuro General: oriented to person, oriented to place and oriented to time Cranial nerves: Yes CN's II-XII intact bilaterally and Yes Normal hearing present Cognition (Neuro): normal cognition Motor exam (neuro): 5/5 motor strength present throughout Extrem Other: venous exam: +2 edema left greater than right General: No clubbing, No cyanosis and Yes edema Psych Appearance: grossly normal Mental Status: mental status grossly normal Speech and movement: Normal speech and movement present Assessment & Plan Assessment & Plan (1) Varicose veins of left lower extremity with inflammation: Code(s): I83.12 - Varicose veins of left lower extremity with inflammation Plan: Unclear etiology of lower extremity pain and swelling. I do suspect an element of this is from her fibromyalgia. I did take the liberty of ordering venous insufficiency testing to rule that out. We did discuss routine conservative measures including compression elevation and exercise. Once again she will follow up with us after venous insufficiency testing. Thank you for allowing us to assist in her care. Orders: Orders US venous duplex LE BI 1 Week I83.12 - Varicose veins of left lower extremity with inflammation Coding Level of Care Code Est Pt Level 4 (64017) Diagnoses Varicose veins of left lower extremity with inflammation I83.12
[2023-06-11 11:20] VITALS: BP 110/72; PULSE 92; O2SAT 98; BMI 28.1
== END 2023-06-11 11:50 | disposition home or self-care (01) ==
PROVIDERS: PCP Internal Medicine; Visit Provider Surgery Vascular Surgery
DX: I83.12 Varicose veins of left lower extremity with inflammation (principal)
CPT/HCPCS: 99213

== ENCOUNTER → 2023-06-11 11:12 | Outpatient (BNVA) | payer MEDICARE, MEDICAID, SELFPAY | PROVIDERS: PCP Internal Medicine; Visit Provider Surgery Vascular Surgery | DX: I83.12 Varicose veins of left lower extremity with inflammation (principal) | CPT/HCPCS: 99212 ==

== ENCOUNTER 2023-06-26 10:23 | Outpatient (REF) | payer MEDICARE, MEDICAID, SELFPAY ==
--- NOTE | ~2023-06-26 | US_ITS ---
EXAMINATION: US LOWER EXTREMITY VENOUS (REFLUX EXAM), BILATERAL CLINICAL INDICATION: Varicose veins COMPARISON: Left lower extremity duplex on 04/07/23 TECHNIQUE: Color flow triplex imaging and compression Doppler was performed to evaluate both the deep and the superficial systems bilaterally. To evaluate the superficial system, the examination was performed in the upright position. Color-flow Doppler ultrasound and compression ultrasound were utilized. In addition, maneuvers were utilized to demonstrate reflux. FINDINGS: 1. DEEP VENOUS ULTRASOUND OF THE RIGHT LOWER EXTREMITY: Common Femoral Vein: Compressible, normal respiratory variation and augmented flow. Femoral Vein: Compressible, normal color flow and augmentation. Popliteal Vein: Compressible, normal augmentation. Deep Reflux: There is no evidence of reflux in the deep system in either the common femoral vein, superficial femoral or the popliteal vein. There is no evidence of a Brody's cyst. 2. SUPERFICIAL ULTRASOUND WITH DOPPLER OF RIGHT LOWER EXTREMITY: GREAT SAPHENOUS VEIN: Saphenofemoral Junction: 0.6 cm; Reflux: 0 ms Proximal Thigh: 0.3 cm; Reflux: 0 ms Mid Thigh: 0.3 cm; Reflux: 0 ms Above Knee: 0.2 cm; Reflux: 0 ms At Knee: 0.1 cm; Reflux: 0 ms Below Knee: 0.2 cm; Reflux: 0 ms Mid Calf: 0.2 cm; Reflux: 0 ms Ankle: 0.2 cm; Reflux: 0 ms DUPLICATED MEDIAL GREAT SAPHENOUS VEIN: Diameter: None imaged Reflux: NA DUPLICATED LATERAL GREAT SAPHENOUS VEIN: Diameter: None imaged Reflux: NA SMALL SAPHENOUS VEIN: Saphenopopliteal Junction: 0.2 cm; Reflux: 0 ms Proximal: 0.1 cm; Reflux: 0 ms Distal: 0.1 cm; Reflux: 0 ms VEIN OF GIACOMINI: Size: NA Reflux: NA PERFORATORS: Location: Proximal calf Size: 0.1cm Reflux: NA VARICOSITIES: Location: Thigh proximal Size: 0.3cm Reflux: NA 3. DEEP VENOUS ULTRASOUND OF THE LEFT LOWER EXTREMITY: Common Femoral Vein: Compressible, normal respiratory variation and augmented flow. Femoral Vein: Compressible, normal color flow and augmentation. Popliteal Vein: Compressible, normal augmentation. Deep Reflux: There is no evidence of reflux in the deep system in either the common femoral vein, superficial femoral or the popliteal vein. There is no evidence of a Brody's cyst. 4. SUPERFICIAL ULTRASOUND WITH DOPPLER OF LEFT LOWER EXTREMITY: GREAT SAPHENOUS VEIN: Saphenofemoral Junction: 0.7 cm; Reflux: 0 ms Proximal Thigh: 0.6 cm; Reflux: 0 ms Mid Thigh: 0.3 cm; Reflux: 0 ms Above Knee: 0.2 cm; Reflux: 0 ms At Knee: 0.2 cm; Reflux: 0 ms Below Knee: 0.1 cm; Reflux: 0 ms Mid Calf: 0.1 cm; Reflux: 0 ms Ankle: 0.1 cm; Reflux: 0 ms DUPLICATED MEDIAL GREAT SAPHENOUS VEIN: Diameter: None imaged Reflux: NA DUPLICATED LATERAL GREAT SAPHENOUS VEIN: Diameter: None imaged Reflux: NA SMALL SAPHENOUS VEIN: Saphenopopliteal Junction: 0.1 cm; Reflux: 0 ms Proximal: 0.1 cm; Reflux: 0 ms Distal: 0.1 cm; Reflux: 0 ms VEIN OF GIACOMINI: Size: NA Reflux: NA PERFORATORS: Location: None imaged Size: NA Reflux: NA VARICOSITIES: Location: Mid thigh Size: 0.1cm Reflux: NA US/US venous duplex LE BI IMPRESSION: 1. No evidence of deep venous thrombosis. 2. No significant reflux in the bilateral great saphenous veins or small saphenous veins.
== END 2023-06-26 10:24 | disposition home or self-care (01) ==
LOC: HO.US 10:23
PROVIDERS: PCP Internal Medicine; Visit Provider Surgery Vascular Surgery
DX: I83.12 Varicose veins of left lower extremity with inflammation (principal)
CPT/HCPCS: 93970

== ENCOUNTER 2023-08-27 11:06 | Emergency (ER) | payer OTHER, SELFPAY ==
--- NOTE | ~2023-08-27 | XR_ITS ---
EXAMINATION: XR CHEST CLINICAL INFORMATION: Cough COMPARISON: 03/15/2023 TECHNIQUE: Frontal view of the chest was obtained. FINDINGS: No significant abnormality is noted involving the heart, lungs, mediastinum, bony thorax or soft tissues. XR/XR chest 1V IMPRESSION: Unremarkable examination.
[2023-08-27 11:13] VITALS: BP 144/71; PULSE 86; RESP 17; TEMP 36.6; O2SAT 97; BMI 29.1
--- NOTE | 2023-08-27 11:23 | ED_ITS ---
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 She reports her symptoms have been getting worse including cough, headache, nasal congestion, difficulty taking a deep breath. Started taking mucinex. she reports history of asthma but does not take any standing asthma medications. She denies any shortness a breath or chest pain. She does report some chest tightness when she tries to take a deep breath. She denies any known sick contacts but does have great grand children and grandchildren. She denies any recent fevers or chills. She reports sinus pressure and congestion, occasionally has cough productive of yellow phlegm. She is up-to-date on her vaccinations. MD complaint: Viral URI symptoms with cough Onset (ago): week(s) (2) Radiation: non-radiation Severity: moderate Quality: aching Pain Consistency: intermittent Exacerbating factors: none Associated symptoms: cough, headaches, malaise and shortness of breath Treatments prior to arrival: none Related Data Home Medications Medication Instructions Recorded Confirmed fluticasone propionate 50 1 spray intranasal DAILY PRN 04/23/21 04/23/21 mcg/actuation nasal Allergy Symptoms spray,suspension ibuprofen 800 mg tablet 1 tab PO DAILY 04/23/21 04/23/21 Previous Rx's Medication Instructions Recorded omeprazole 20 mg capsule,delayed 20 mg PO DAILY #30 caps 04/25/21 release albuterol sulfate 90 mcg/actuation 2 puff inhalation Q4-6H PRN 08/27/23 aerosol inhaler shortness of breath or wheezing #8.5 grams benzonatate 100 mg capsule 100 mg PO TID PRN cough #20 caps 08/27/23 prednisone 20 mg tablet 40 mg (2 x 20 mg) PO DAILY #10 tabs 08/27/23 Allergies Allergy/AdvReac Type Severity Reaction Status Date / Time No Known Allergies Allergy Verified 08/27/23 11:13 Review of Systems Review of Systems: Yes all other systems are reviewed and are negative PMFSH Past Medical History Medical History Fibromyalgia AYANA (obstructive sleep apnea) Rectal bleed Surgical History History of radiofrequency ablation procedure for cardiac arrhythmia Hx of colonoscopy Family History Family History Mother Breast cancer Father Alzheimer's dementia Hypertension Social History Social History Household Members: Family Household Members Other:: grandson Housing: Apartment Do you presently have visiting nurse or other home services: Yes Alcohol intake: never Patient Tobacco Use Status: Never used Tobacco Advance Directives: Yes Advance Directives on File: Yes Advance Directives Date on File: 04/26/21 service: No Current occupational status: disabled Physical Exam ED Vital Signs: Vital Signs - 24 hr 08/27/23 11:13 08/27/23 13:33 Temperature 97.8 F 97.1 F Pulse Rate 86 88 Respiratory Rate 17 18 Blood Pressure 144/71 H 146/72 H Pulse Oximetry 97 98 Oxygen Delivery Method Room Air Room Air BMI result Body Mass Index 29.1 Appearance: Alert. Oriented X3. No acute distress. Head: normocephalic, atraumatic. Eyes: Pupils equal, round and reactive to light. ENT: Pharynx normal. No tonsillar swelling or exudate. Neck: Normal inspection. Neck supple. CVS: Normal heart rate and rhythm. Pulses normal. Respiratory: No respiratory distress. Breath sounds with coarseness at the right upper lobe, no wheezing, rhonchi. Skin: Skin warm and dry. Normal skin color. Normal skin turgor. No rashes. Extremities: No lower extremity edema. No joint swelling. Neuro/psych: Oriented X 3. grossly normal, nonfocalNormal speech and cognition. Course Course Course Narrative: This is an RME: Additional HPI, ROS, PE not included below will be deferred to primary provider. 67 yo female presents w/ faitgue, calaise, cough ( mostly dry but at times productive, wheezing, sob, headache X 2 weeks. Had bronchitis 1 month ago Plan- viral test, cxr Medical Decision Making Medical Decision Making MDM Narrative: 67-year-old female presents to the ER for evaluation of 2 weeks of cough, headaches, difficulty taking a deep breath. She has had a negative COVID test at home, denies any sick contacts. She has a nonsmoker. On arrival to the ER she is hemodynamically stable, saturating well on room air, breathing co mfortably and speaking in complete sentences. On examination her lungs are clear, no wheezes or rhonchi. She did have some coarseness on the right upper lobe which cleared with coughing. She is nontoxic appearing. Her chest x-ray was reviewed and was negative for pneumonia. She tested negative for COVID, flu, RSV. Signs and symptoms are most consistent with a viral URI. Will prescribe short course of prednisone, Tessalon, albuterol as needed for bronchospasm and shortness of breath. She was encouraged follow-up with her primary care doctor. Other symptomatic relief measures were discussed including [id number] cold and flu medications. We also discussed return precautions. corporate claims examiner used to discuss likely diagnosis, plan. Differential Diagnosis Differential Diagnoses: The differential diagnosis associated with the presentation includes strep, covid, flu, rsv, other viral syndrome, bronchitis, pneumonia, pertussis Lab Data MDM Lab Attestation statement: I reviewed the patient's lab results. Labs: Lab Results 08/27/23 Range/Units 11:40 Influenza Type A (PCR) NEGATIVE (Negative) Influenza Type B (PCR) NEGATIVE (Negative) RSV RNA Qual (PCR) NEGATIVE (Negative) SARS-CoV-2 RNA (RT-PCR) NEGATIVE (Negative) Independent Interpretation I performed an independent interpretation of an: Plain X-Ray Interpretation: negative for pneumonia, no focal infiltrate Radiology Impression Discussion of test interpretation with radiology: I have reviewed the radiologist's reading. Radiologist Impression: XR/XR chest 1V IMPRESSION: Unremarkable examination. External Record Review External record reviewed: Office record, Outpatient record and Prior outpatient labs Prescription Management I considered prescription management with: Antibiotic Chronic Conditions Patient?s care impacted by: Other (asthma) Critical Care Time Critical Care Time Critical Care Time: No Discharge Plan Discharge Clinical Impression: Viral URI with cough Patient Disposition: Home, Self-Care Instructions: Acute Bronchitis (ED), Viral Syndrome (ED) Additional Instructions: Your chest x-ray today was normal, no evidence of pneumonia. You tested negative for influenza A, influenza B, RSV and COVID-19. Your symptoms most likely viral and will get better on their own. Rest. Drink plenty of fluids. Take over the counter cold/flu medications as needed for your symptoms. Take the prescribed medications as directed. Take Tylenol and/or Motrin as needed for fevers and body aches. Follow up with your doctor this week. If you shortness of breath worsens , if you develop difficulty breathing or any other concerning symptom come back to the ER for further evaluation. Prescriptions: New prednisone 20 mg tablet 40 mg PO DAILY Qty: 10 0RF benzonatate 100 mg capsule 100 mg PO TID PRN (Reason: cough) Qty: 20 0RF albuterol sulfate 90 mcg/actuation HFA aerosol inhaler 2 puff inhalation Q4-6H PRN (Reason: shortness of breath or wheezing) Qty: 8.5 0RF No Action ibuprofen 800 mg tablet 1 tab PO DAILY fluticasone propionate 50 mcg/actuation spray,suspension 1 spray intranasal DAILY PRN (Reason: Allergy Symptoms) omeprazole 20 mg capsule,delayed release(DR/EC) 20 mg PO DAILY Qty: 30 0RF Referrals: Miguel Martínez MD [Primary Care Provider] - Interventions: ED Discharge Assessment Last Done: 08/27/23 13:33 Discharge Date/Time: 08/27/23 13:35 Print Language: Persian
[2023-08-27 12:28] LABS: Influenza A PCR NEGATIVE (Negative); Influenza B PCR NEGATIVE (Negative); Resp Syncy Virus RNA Qual PCR NEGATIVE (Negative); SARS COV2 PCR INHOUSE NEGATIVE (Negative)
--- NOTE | 2023-08-27 13:32 | PC.NURSE ---
patient a&ox3, lungs diminished/clear, pt c/o cough-productive at times, vss, pt to discharge home with medications
[2023-08-27 13:33] VITALS: BP 146/72; PULSE 88; RESP 18; TEMP 36.2; O2SAT 98
== END 2023-08-27 13:35 | disposition home or self-care (01) ==
PROVIDERS: Physician Assistant; Emergency Provider Emergency Medicine; PCP Internal Medicine
DX: J06.9 Acute upper respiratory infection, unspecified (principal); R06.02 Shortness of breath; R05.9 Cough, unspecified; Z11.52 Encounter for screening for COVID-19; Z20.822 Contact with and (suspected) exposure to COVID-19
CPT/HCPCS: 0241U; 71045; 99282; 99283

== ENCOUNTER 2023-08-31 14:40 | Emergency (ER) | payer OTHER, SELFPAY ==
--- NOTE | ~2023-08-31 | XR_ITS ---
EXAMINATION: XR CHEST CLINICAL INFORMATION: Chest pain. COMPARISON: Chest radiograph dated 08/27/2023. TECHNIQUE: 2 views of the chest were obtained. FINDINGS: Heart size is normal. The lungs are clear. No pleural effusion or pneumothorax. No acute osseous abnormality. XR/XR chest 2V IMPRESSION: No acute cardiopulmonary disease.
--- NOTE | 2023-08-31 14:43 | ECG_ITS ---
Test Reason : chest pain Blood Pressure : / mmHG Vent. Rate : 099 BPM Atrial Rate : 099 BPM P-R Int : 132 ms QRS Dur : 106 ms QT Int : 378 ms P-R-T Axes : 057 -11 010 degrees QTc Int : 485 ms Normal sinus rhythm Incomplete right bundle branch block Inferior infarct , age undetermined Abnormal ECG When compared with ECG of 15-MAR-2023 09:35, Incomplete right bundle branch block is now Present Referred By: Angelica Tony Electronically Signed By:Hansel Lewis
[2023-08-31 14:54] VITALS: BP 140/78; PULSE 92; RESP 18; TEMP 36.2; O2SAT 98; BMI 31.8
--- NOTE | 2023-08-31 14:55 | ED_ITS ---
HPI - General Adult General Chief complaint: Upper Respiratory Symptoms Stated complaint: chest pain diff breathing Time Seen by Provider: 08/31/23 15:14 Source: patient and rent collector Mode of arrival: ambulatory Limitations: language barrier History of Present Illness HPI narrative: Patient is a 67-year-old Moldovan-speaking female with history of asthma presenting to the emergency department with complaint of ongoing shortness of breath, chest tightness, productive cough for the past 2 and half weeks. States she was seen here on 08/26 and prescribed prednisone, inhaler, cough medicine without improvement in symptoms. She denies fevers. She denies chest pain or palpitations. States she is coughing up yellow sputum. MD complaint: Cough, shortness of breath Onset (ago): week(s) Treatments prior to arrival: other Related Data Home Medications Medication Instructions Recorded Confirmed fluticasone propionate 50 1 spray intranasal DAILY PRN 04/23/21 04/23/21 mcg/actuation nasal Allergy Symptoms spray,suspension ibuprofen 800 mg tablet 1 tab PO DAILY 04/23/21 04/23/21 Previous Rx's Medication Instructions Recorded omeprazole 20 mg capsule,delayed 20 mg PO DAILY #30 caps 04/25/21 release albuterol sulfate 90 mcg/actuation 2 puff inhalation Q4-6H PRN 08/27/23 aerosol inhaler shortness of breath or wheezing #8.5 grams benzonatate 100 mg capsule 100 mg PO TID PRN cough #20 caps 08/27/23 prednisone 20 mg tablet 40 mg (2 x 20 mg) PO DAILY #10 tabs 08/27/23 azithromycin 250 mg tablet See Rx Instructions PO .COMPLEX #6 08/31/23 tabs Allergies Allergy/AdvReac Type Severity Reaction Status Date / Time No Known Allergies Allergy Verified 08/27/23 11:13 Review of Systems 2 Review of Systems: As per HPI. Yes all other systems are reviewed and are negative Constitutional: Constitutional: Reports as per HPI PMF Past Medical History Medical History Fibromyalgia AYANA (obstructive sleep apnea) Rectal bleed Surgical History History of radiofrequency ablation procedure for cardiac arrhythmia Hx of colonoscopy Family History Family History Mother Breast cancer Father Alzheimer's dementia Hypertension Social History Social History Household Members: Family Household Members Other:: grandson Housing: Apartment Do you presently have visiting nurse or other home services: Yes Alcohol intake: never Patient Tobacco Use Status: Never used Tobacco Advance Directives: Yes Advance Directives on File: Yes Advance Directives Date on File: 04/26/21 service: No Current occupational status: disabled Physical Exam ED Vital Signs: Vital Signs - 24 hr 08/31/23 14:54 08/31/23 15:29 Temperature 97.1 F Pulse Rate 92 92 Respiratory Rate 18 22 H Blood Pressure 140/78 H Pulse Oximetry 98 Oxygen Delivery Method Room Air BMI result Body Mass Index 31.8 Vital signs have been reviewed and appear to be correct. Blood pressure normal. Heart rate normal. Respiratory rate normal. Temperature normal. Oxygen saturation normal. Const General: cooperative, healthy appearing and no acute distress Orientation/consciousness: oriented to person, oriented to place, oriented to time and patient oriented x3 Limitations: no limitations HENMT Head: Yes normocephalic and Yes atraumatic Ears: external ears normal General nose exam: Normal external nose present Face and sinus: Yes face symmetric Mouth: oropharynx normal and moist mucous membranes Throat: Yes uvula midline Eyes Pupils: Equal, round and reactive pupils present Neck Neck: Yes normal visual inspection and Yes supple Resp Effort & Inspection: normal respiratory effort and able to speak in complete sentences Auscultation: clear to auscultation bilaterally and wheezes scattered wheezes Cardio Rate: regular rate Rhythm: regular rhythm Heart sounds: S1 normal heart sound present and S2 normal heart sound present GI Palpation (GI): Soft to palpation and nontender Auscultation: normoactive bowel sounds General: Yes no CVA tenderness Back/Spine/Pelvis Back: no CVA tenderness Skin General skin exam: elasticity normal and turgor normal Neuro General: oriented to person, oriented to place, oriented to time, patient oriented x3, moves all extremities, no focal motor deficits and CN's II-XI intact bilaterally Cranial nerves: Yes Equal, round and reactive pupils present Cognition (Neuro): normal cognition Extrem General: Yes full ROM, Yes no pedal edema and Yes no calf tenderness Psych Mental Status: mental status grossly normal Affect: normal affect Thought process: Normal thought process present Course Course Course Narrative: RME performed by Angelica Tony PA-C. Patient is a 67 year old assigned female at presenting to the emergency department with chest pain and shortness of breath. Detailed physical exam and review of systems are deferred to the buffing wheel presser. Labs, imaging, and swabs ordered. Patient placed back in the waiting room pending room availability and results. Medications Administered Discontinued Medications Generic Name Dose Route Start Last Admin Trade Name Farzadq PRN Reason Stop Dose Admin Albuterol Sulfate 4 puff 08/31/23 15:24 08/31/23 15:29 Albuterol Sulfate 90 Mcg 8 Gm Inhaler INHALE 08/31/23 15:25 4 puff ONCE ONE Administration Medical Decision Making Medical Decision Making [facility] Narrative: Patient is a 67-year-old [place]-speaking female with history of asthma presenting to the emergency department with complaint of ongoing shortness of breath, chest tightness, productive cough for the past 2 and half weeks. On exam patient is awake, A+Ox3, VS WNL, afebrile, normal neurological exam without focal deficits, physical exam findings as above. Given reported symptoms and physical exam findings, initial differential includes bronchitis, pneumonia, viral illness. Do not suspect ACS. Labs ordered by triage provider notable for no leukocytosis, troponin 11.2, no delta on repeat. X-ray notable for no evidence of pneumonia. My interpretation is in agreement with the radiologist's interpretation. Will discharge patient home on course of azithromycin for bronchitis. Advised her to continue using her inhaler and patient given spacer by RT. Instructed patient to follow-up with her primary care provider. Return precautions discussed at bedside. Patient verbalized understanding of and agreement with plan. All results and discharge plan discussed with patient via planning official. Differential Diagnosis Differential Diagnoses: The differential diagnosis associated with the presentation includes As per [facility]. Admission/Observation Consideration of admission/observation: Escalation of care including admission/observation considered Patient would have been admitted to the hospital had their work up had any findings where hospital admission was appropriate and their clinical presentation warranted hospital admission. Lab Data [facility] Lab Attestation statement: I reviewed the patient's lab results. As per [facility] 08/31/23 15:18 08/31/23 15:18 Labs: Lab Results 08/31/23 08/31/23 Range/Units 15:18 16:44 WBC 5.9 (4.8-10.8) X10*3/uL RBC 4.07 L (4.20-5.50) X10*6/uL Hgb 13.0 (12.0-16.0) g/dl Hct 39.5 (37.0-47.0) % MCV 97.1 (80.0-98.0) fL MCH 31.9 (27.0-33.0) pg MCHC 32.9 (31.0-35.0) g/dl RDW 13.2 (11.0-16.0) % Plt Count 401 H (160-400) X10*3/uL MPV 8.8 L (9.4-12.3) fL Immature Gran % (Auto) 0.7 H (0.0-0.4) % Neut % (Auto) 84.9 H (45-73) % Lymph % (Auto) 11.8 L (20-40) % [place] % (Auto) 1.9 L (2-11) % Eos % (Auto) 0.0 (0-4) % Baso % (Auto) 0.7 (0-2) % Lymph # (Auto) 0.7 L (1.2-4.9) X10*3/uL [place] # (Auto) 0.1 (0.1-1.2) X10*3/uL Eos # (Auto) 0.0 (0.0-0.4) X10*3/uL Baso # (Auto) 0.0 (0.0-0.2) X10*3/uL Abs Immat Gran (auto) 0.04 H (0.00-0.03) X10*3/uL Absolute Neuts (auto) 5.0 (2.0-8.3) x10*3/uL Absolute Nucleated RBC 0.000 (0.0-0.012) X10*3/uL Nucleated RBC % (auto) 0.0 (0.0-0.2) /100WBC Sodium 143 (135-145) mmol/L Potassium 4.5 (3.3-5.1) mmol/L Chloride 107 (96-108) mmol/L Carbon Dioxide 27 (22-29) mmol/L Anion Gap 14 (12-20) BUN 15 (9-16) mg/dL Creatinine 0.85 (0.5-1.4) mg/dL Estim Creat Clear Calc 45.8 Estimated GFR > 60 Random Glucose 127 H (60-115) mg/dL Calcium 9.7 (8.4-10.2) mg/dL Magnesium 2.3 (1.6-2.6) mg/dL Total Bilirubin 0.3 (0.0-1.0) mg/dL AST 20 (5-31) U/L ALT 30 (0-31) U/L Alkaline Phosphatase 104 (39-117) U/L Troponin I High Sens 11.2 12.9 (<3.5-17.0) ng/L Total Protein 7.8 (6.5-8.0) g/dL Albumin 4.1 (3.5-5.0) g/dL Influenza Type A (PCR) NEGATIVE (Negative) Influenza Type B (PCR) NEGATIVE (Negative) RSV RNA Qual (PCR) NEGATIVE (Negative) SARS-CoV-2 RNA (RT-PCR) NEGATIVE (Negative) Independent Interpretation I performed an independent interpretation of an: Plain X-Ray Interpretation: No evidence of pneumonia on chest x-ray. Radiology Impression Discussion of test interpretation with radiology: I have reviewed the radiologist's reading. Radiologist Impression: XR/XR chest 2V IMPRESSION: No acute cardiopulmonary disease. External Record Review External record reviewed: Inpatient record, Office record and Outpatient record Prescription Management I considered prescription management with: Antibiotic Discharge Plan Discharge Clinical Impression: Bronchitis Patient Disposition: Home, Self-Care Instructions: Acute Bronchitis (ED) Additional Instructions: You were evaluated in the emergency department today for cough and shortness of breath. You are being treated for bronchitis with an antibiotic, please complete the full course as prescribed. Please continue to use your inhaler with a spacer provided in the emergency department today. Please follow-up with your primary care provider this week. Return to the emergency department if you develop worsening shortness of breath, difficulty breathing, chest pain, fever not improved with Tylenol or ibuprofen, or any other concerning symptoms. Prescriptions: New azithromycin 250 mg tablet See Rx Instructions .ROUTE .COMPLEX Qty: 6 0RF Rx Instructions: For 250 mg dose pack: take 500 mg today (day 1), then 250 mg for 4 days (days 2-5) No Action ibuprofen 800 mg tablet 1 tab PO DAILY fluticasone propionate 50 mcg/actuation spray,suspension 1 spray intranasal DAILY PRN (Reason: Allergy Symptoms) omeprazole 20 mg capsule,delayed release(DR/EC) 20 mg PO DAILY Qty: 30 0RF prednisone 20 mg tablet 40 mg PO DAILY Qty: 10 0RF benzonatate 100 mg capsule 100 mg PO TID PRN (Reason: cough) Qty: 20 0RF albuterol sulfate 90 mcg/actuation HFA aerosol inhaler 2 puff inhalation Q4-6H PRN (Reason: shortness of breath or wheezing) Qty: 8.5 0RF Print Language: Moldovan
[2023-08-31 15:22] LABS: MANUAL DIFF FLAG NO
[2023-08-31 15:24] LABS: Basophils Percent Auto 0.7 % (0-2); Hematocrit 39.5 % (37.0-47.0); Imm Gran Abs Auto 0.04 X10*3/uL (0.00-0.03); Imm Gran Pct Auto 0.7 % (0.0-0.4); Lymphocytes Absolute Auto 0.7 X10*3/uL (1.2-4.9); Lymphocytes Percent Auto 11.8 % (20-40); Mean Corpuscular HGB Conc 32.9 g/dl (31.0-35.0); Mean Corpuscular Hemoglobin 31.9 pg (27.0-33.0); Mean Corpuscular Volume 97.1 fL (80.0-98.0); Mean Platelet Volume 8.8 fL (9.4-12.3); Monocytes Absolute Auto 0.1 X10*3/uL (0.1-1.2); Monocytes Percent Auto 1.9 % (2-11); Neutrophils Percent Auto 84.9 % (45-73); Platelet Count 401 X10*3/uL (160-400); Red Blood Count 4.07 X10*6/uL (4.20-5.50); Red Cell Distribution Width 13.2 % (11.0-16.0); White Blood Count 5.9 X10*3/uL (4.8-10.8)
[2023-08-31 15:29] VITALS: PULSE 92; RESP 22; O2SAT 98
[2023-08-31] MEDS: Albuterol Sulfate 90 MCG 8 GM INHALER 4 PUFF INHALE (15:29)
[2023-08-31 15:37] LABS: Alanine Aminotransferase 30 U/L (0-31); Albumin Level 4.1 g/dL (3.5-5.0); Alkaline Phosphatase 104 U/L (39-117); Anion Gap 14 (12-20); Aspartate Amino Transferase 20 U/L (5-31); Bilirubin Total 0.3 mg/dL (0.0-1.0); Blood Urea Nitrogen 15 mg/dL (9-16); Calcium 9.7 mg/dL (8.4-10.2); Carbon Dioxide 27 mmol/L (22-29); Chloride 107 mmol/L (96-108); Creatinine Clr Calc Pharmacy 45.8; Estimated Glomerular Filt Rate > 60; Glucose Random 127 mg/dL (60-115); Magnesium 2.3 mg/dL (1.6-2.6); Potassium 4.5 mmol/L (3.3-5.1); Sodium 143 mmol/L (135-145); Total Protein 7.8 g/dL (6.5-8.0)
[2023-08-31 15:46] LABS: Troponin-I High Sensitivity 11.2 ng/L (<3.5-17.0)
[2023-08-31 16:01] LABS: Influenza A PCR NEGATIVE (Negative); Influenza B PCR NEGATIVE (Negative); Resp Syncy Virus RNA Qual PCR NEGATIVE (Negative); SARS COV2 PCR INHOUSE NEGATIVE (Negative)
[2023-08-31 17:07] LABS: Troponin-I High Sensitivity 12.9 ng/L (<3.5-17.0)
[2023-08-31] MEDS: Acetaminophen 325 MG TABLET 650 MG PO (18:07)
--- NOTE | 2023-08-31 18:13 | PC.NURSE ---
DISCHARGED BY MENTALLY RETARDED TEACHER.
== END 2023-08-31 18:11 | disposition home or self-care (01) ==
PROVIDERS: Physician Assistant Medical; Registered Nurse Emergency; Emergency Provider Emergency Medicine Emergency Medical Services; PCP Internal Medicine
DX: J40 Bronchitis, not specified as acute or chronic (principal); J45.909 Unspecified asthma, uncomplicated; Z11.52 Encounter for screening for COVID-19; Z20.828 Contact with and (suspected) exposure to other viral communicable diseases
CPT/HCPCS: 0241U; 36415; 71046; 80053; 83735; 84484; 85025; 93005; 94664; 99284

== ENCOUNTER → 2023-08-31 14:43 | Outpatient (BNV) | payer OTHER, SELFPAY | PROVIDERS: Emergency Provider Emergency Medicine Emergency Medical Services; PCP Internal Medicine; Visit Provider Internal Medicine Cardiovascular Disease | DX: R07.9 Chest pain, unspecified (principal) | CPT/HCPCS: 93010 ==

== ENCOUNTER 2023-11-24 12:43 | Outpatient (AMB) | payer OTHER, SELFPAY ==
--- NOTE | 2023-11-24 12:59 | A.OFFVIS_ITS ---
Intake Visit Reasons: Leg Pain Intake Note: Patient presents for leg pain. Patient had a ultrasound on 06/26/23 , overdue for a follow up. Upon arrival patient was walking slowly and states it is due to her leg pain. Leg pain is bilateral but the right leg is worse. Also has foot pain. She states she feels a weird sensation in her legs that feel like 'liquid flowing She has minimal swelling , mostly in right ankle. Accompanied by: Self / Same As Patient Allergies No Known Allergies Allergy (Verified 11/24/23 13:04) HPI HPI Leg Pain: Details: Very pleasant 60-year-old female presents for follow-up regarding venous insufficiency. She does have lower extremity pain it is knees on down in addition she reports back pain issues. Current time leg seemed to be doing relatively well. She has a difficulty time tolerating compression. She now presents for follow-up evaluation. [facility] Medical History Fibromyalgia AYANA (obstructive sleep apnea) Rectal bleed Surgical History History of radiofrequency ablation procedure for cardiac arrhythmia Hx of colonoscopy Family History Mother Breast cancer Father Alzheimer's dementia Hypertension Social History Household Members: Family Household Members Other:: grandson Housing: Apartment Do you presently have visiting nurse or other home services: Yes Alcohol intake: never Patient Tobacco Use Status: Never used Tobacco Advance Directives Date on File: 04/26/21 service: No Current occupational status: disabled Review of Systems Const All systems reviewed & are unremarkable except as noted in HPI and below Reports no additional complaints ENT Reports Normal hearing present Card Denies chest pain, Denies chest pain at rest, Denies chest pain with activity and Denies pedal edema Resp Denies cough GI Denies abdominal pain Musc Denies abnormal gait, Denies muscle cramps and Denies radiating pain into limb Skin/Breast Denies skin ulcer and Denies wounds Neuro Reports Normal hearing present and Denies abnormal gait Psych Reports no additional complaints Physical Exam Const General: cooperative, healthy appearing and comfortable Orientation/consciousness: oriented to person, oriented to place and oriented to time HEENT Head: Yes normal to inspection Neck Neck: Yes normal visual inspection Carotids: no bruits Chest Chest palpation & inspection: normal inspection of the chest Resp Effort & Inspection: normal respiratory effort and able to speak in complete sentences Auscultation: clear to auscultation bilaterally, no crackles, no rales, no rhonchi and no wheezes Cardio Rate: regular rate Rhythm: regular rhythm Heart sounds: S1 normal heart sound present and S2 normal heart sound present Bruits: no carotid bruits Peripheral pulses: Peripheral pulses 2+ throughout GI Inspection: Yes normal to inspection Skin Wounds: no wounds Hair: normal Neuro General: oriented to person, oriented to place and oriented to time Cranial nerves: Yes CN's II-XII intact bilaterally and Yes Normal hearing present Cognition (Neuro): normal cognition Motor exam (neuro): 5/5 motor strength present throughout Extrem Other: venous exam: No significant superficial varicosities or spider telangiecta tonny, minimal edema General: No clubbing, No cyanosis and No edema Psych Appearance: grossly normal Mental Status: mental status grossly normal Speech and movement: Normal speech and movement present Results Reviewed Results Reviewed: Brief summary of venous insufficiency testing is as follows: right great saphenous vein: negative right small saphenous vein: negative right accessory vein: none present left great saphenous vein: negative left small saphenous vein: negative left accessory vein: none present Please note there is no evidence of any venous aneurysms or significant tortuosi ty Assessment & Plan Assessment & Plan (1) Varicose veins of left lower extremity with inflammation: Code(s): I83.12 - Varicose veins of left lower extremity with inflammation Category: Medical Plan: In short patient is negative for any significant venous insufficiency. We did discuss routine conservative measures including compression elevation and exercise. I do believe some of this pain is more neurogenic and we will refer to pain management. (2) Back pain: Code(s): M54.9 - Dorsalgia, unspecified Category: Medical Qualifiers: Back pain location: low back pain Chronicity: chronic Back pain laterality: unspecified Sciatica presence: unspecified whether sciatica present Qualified Code(s): M54.50 - Low back pain, unspecified; G89.29 - Other chronic pain Plan: In short patient has lower back pain. She does have an element of osteoporosis as demonstrated by bone densitometry performed on 02/14/2022. In addition CT scan dated 04/23/2021 demonstrates multi level degenerative spondylosis of the spine. I have taken the liberty of ordering a pain management evaluation to better evaluate her lower back pain and possible neurogenic complications thereof. Thank you for allowing us to assist in her care. If there are any questions or concerns please do not hesitate to contact us Coding Level of Care Code Est Pt Level 4 (24324) Diagnoses Varicose veins of left lower extremity with inflammation I83.12 Chronic low back pain, unspecified back pain laterality, unspecified whether sciatica present M54.50; G89.29 Back pain location: low back pain Chronicity: chronic Back pain laterality: unspecified Sciatica presence: unspecified whether sciatica present
== END 2023-11-24 13:13 | disposition home or self-care (01) ==
PROVIDERS: PCP Internal Medicine; Visit Provider Surgery Vascular Surgery
DX: I83.12 Varicose veins of left lower extremity with inflammation (principal); M54.50 Low back pain, unspecified; G89.29 Other chronic pain
CPT/HCPCS: 99213

== ENCOUNTER → 2023-11-24 12:43 | Outpatient (BNVA) | payer OTHER, SELFPAY | PROVIDERS: PCP Internal Medicine; Visit Provider Surgery Vascular Surgery | DX: I83.12 Varicose veins of left lower extremity with inflammation (principal); G89.29 Other chronic pain; M54.50 Low back pain, unspecified | CPT/HCPCS: 99212 ==

== ENCOUNTER → 2023-12-17 09:28 | Outpatient (BNVA) | payer OTHER, SELFPAY | PROVIDERS: PCP Internal Medicine; Referring Provider Surgery Vascular Surgery; Visit Provider Registered Nurse Emergency ==

== ENCOUNTER 2024-01-11 13:47 | Emergency (ER) | payer OTHER, SELFPAY ==
--- NOTE | ~2024-01-11 | XR_ITS ---
EXAMINATION: XR SHOULDER, LEFT CLINICAL INFORMATION: Pain in left shoulder COMPARISON: None available. TECHNIQUE: AP external rotation, Grashey, scapular Y, and axillary views of the left shoulder. FINDINGS: The bones and soft tissues are normal. No fracture. Glenohumeral and acromioclavicular alignment is anatomic with normal joint space. No abnormal soft tissue calcifications. XR/XR shoulder LT min 2V IMPRESSION: Normal left shoulder.
[2024-01-11 13:56] VITALS: BP 136/74; PULSE 75; RESP 16; TEMP 37; O2SAT 98; BMI 29.8
--- NOTE | 2024-01-11 14:06 | ED_ITS ---
HPI - General Adult General Chief complaint: Extremity Problem Stated complaint: shoulder pain Time Seen by Provider: 01/11/24 14:19 Source: patient Mode of arrival: ambulatory Limitations: language barrier (Occitan ) History of Present Illness ED Provider: Sheila Lama PA-C HPI narrative: 68 year old female with PMH of fibromyalgia presents to the ED today with severe pain in her left shoulder causing it to be almost immovable. Patient states that about 5 days ago she was lifting up her grandchild when she felt a pop and a tearing noise followed by severe pain that has continued to get worse over the last 5 days. She states that the pain is radiating from her shoulder distally into her left upper arm to the elbow. She states she is unable to move the arm very much, and when she moves it she is in severe pain. She denies any other trauma or injury to the area. The denies swelling, redness, fever. She has a history of fibromyalgia and has been dealing with pain in her knees, hips and shoulders for many years. Uses Ibuprofen (Motrin) for pain. Took 800mg every 6 hours for shoulder pain with minimal effect on pain. Onset (ago): day(s) (5) Location: upper extremity (Shoulder) Radiation: distal (to elbows) Severity: moderate Severity scale (1-10): 8 Quality: aching and sharp Pain Consistency: constant Relieving factors: none Exacerbating factors: movement Associated symptoms: denies other symptoms Treatments prior to arrival: NSAID (Ibuprofen ) Related Data Home Medications ?Medication ?Instructions ?Recorded ?Confirmed fluticasone propionate 50 1 spray intranasal DAILY PRN 04/23/21 04/23/21 mcg/actuation nasal Allergy Symptoms spray,suspension ibuprofen 800 mg tablet 1 tab PO DAILY 04/23/21 04/23/21 Previous Rx's ?Medication ?Instructions ?Recorded omeprazole 20 mg capsule,delayed 20 mg PO DAILY #30 caps 04/25/21 release albuterol sulfate 90 mcg/actuation 2 puff inhalation Q4-6H PRN 08/27/23 aerosol inhaler shortness of breath or wheezing #8.5 grams benzonatate 100 mg capsule 100 mg PO TID PRN cough #20 caps 08/27/23 prednisone 20 mg tablet 40 mg (2 x 20 mg) PO DAILY #10 tabs 08/27/23 azithromycin 250 mg tablet See Rx Instructions PO .COMPLEX #6 08/31/23 tabs naproxen 500 mg tablet 500 mg PO BID PRN pain #20 tabs 01/11/24 Allergies Allergy/AdvReac Type Severity Reaction Status Date / Time No Known Allergies Allergy Verified 01/11/24 13:58 Review of Systems Review of Systems: Yes all other systems are reviewed and are negative FORMERLY [facility], [facility] Past Medical History Medical History Fibromyalgia AYANA (obstructive sleep apnea) Rectal bleed Surgical History History of radiofrequency ablation procedure for cardiac arrhythmia Hx of colonoscopy Family History Family History Mother Breast cancer Father Alzheimer's dementia Hypertension Social History Social History Household Members: Family Household Members Other:: grandson Housing: Apartment Do you presently have visiting nurse or other home services: Yes Alcohol intake: never Patient Tobacco Use Status: Never used Tobacco Advance Directives: Yes Advance Directives on File: Yes Advance Directives Date on File: 04/26/21 service: No Current occupational status: disabled Physical Exam ED Vital Signs: Vital Signs - 24 hr 01/11/24 13:56 01/11/24 16:34 Temperature 98.6 F 98.6 F Pulse Rate 75 75 Respiratory Rate 16 16 Blood Pressure 136/74 136/74 Pulse Oximetry 98 98 Oxygen Delivery Method Room Air Room Air BMI result Body Mass Index 29.8 Appearance: Alert. Oriented X3. Mild distress HEENT: normal inspection CVS: Normal heart rate and rhythm. Pulses normal. Respiratory: No respiratory distress. Skin: Skin warm and dry. Normal skin color. Normal skin turgor. No rashes. Extremities: No trauma or injuries noted on exam. Left shoulder and arm without erythema or swelling, decreased ROM of left arm due to pain. Director [employer] strength is intact and equal bilaterally. Empty can test is somewhat positive, Neer test unobtainable due to pain. Severe pain with both passive and active movement. Henry sign negative left bicep. Pain throughout distal bicep with left arm extension, abduction. Neuro: Oriented X 3. Motor deficit to left arm movement, due to pain. 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 No sensory deficit. Course Course Course Narrative: RME: Done by MIGUEL Slaughter. [age] year female presents to ED for left shoulder pain for the past 5 days. Patient states while lifting her granddaughter she felt a pop and and heard a tear in her left shoulder. Patient states ever since she has had shoulder pain that is worse on movement and decreased range of motion. Patient denies any neck pain, chest pain, paralysis or tingling in any extremity. Physical exam positive for shoulder tenderness on palpation. Negative for crepitus, ecchymosis, deformity, or erythema. Vascular neuro exam intact. Motor exam intact but limited due to pain. X-ray shoulder ordered Medical Decision Making Medical Decision Making MDM Narrative: 68 year old female with PMH of fibromyalgia presents to the ED today with severe pain in her left shoulder causing it to be almost immovable. Patient is severe pain with passive and active movement, and ROM is very limited to left shoulder due to severe pain. Patient was lifting grandchild when she heard a pop and tearing sound . Obtained x-ray to confirm no bone fractures or breaks. Empty can test was somewhat positive, and Neer test was unobtainable due to pain. Likely a tendon/ligament tear, rotator cuff tear or adhesive capsulitis. Henry sign was negative,less likely a complete bicep tear. May be bicep tendonitis or partial bicep tear. Unlikely septic joint as there was no injury or trauma, and there was no warmth or swelling noted on physical exam. placed in a sling for support with improvement in pain. instructed to rest, ice, use NSAIDs and f/u with orthopedics for further evaluation and treatment. stable for d/c home Differential Diagnosis Differential Diagnoses: The differential diagnosis associated with the presentation includes Shoulder fracture, Tendon/ligament tear, biceps tendonitis, bicep tear, adhesive capsulitis, Rotator cuff tear, Septic joint, Independent Interpretation I performed an independent interpretation of an: Plain X-Ray Interpretation: normal AC joint, no acute fracture appreciated. Radiology Impression Discussion of test interpretation with radiology: I have reviewed the radiologist's reading. Radiologist Impression: EXAMINATION: XR SHOULDER, LEFT CLINICAL INFORMATION: Pain in left shoulder COMPARISON: None available. TECHNIQUE: AP external rotation, Grashey, scapular Y, and axillary views of the left shoulder. FINDINGS: The bones and soft tissues are normal. No fracture. Glenohumeral and acromioclavicular alignment is anatomic with normal joint space. No abnormal soft tissue calcifications. XR/XR shoulder LT min 2V IMPRESSION: Normal left shoulder. External Record Review External record reviewed: Outpatient record, Prior outpatient labs and Prior outpatient radiology Prescription Management I considered prescription management with: Pain Medication Chronic Conditions Patient?s care impacted by: Other (fibromyalgia) Critical Care Time Critical Care Time Critical Care Time: No Discharge Plan Discharge Clinical Impression: Biceps tendonitis Qualifiers: Laterality: left Qualified Code(s): M75.22 - Bicipital tendinitis, left shoulder Patient Disposition: Home, Self-Care Instructions: Tendinitis (ED), Shoulder Pain (ED) Additional Instructions: Your x-ray today was normal. Where the provided sling for the next 48-72 hours. Take the prescribed anti-inflammatory medication as needed for pain. Use ice to the area several times per day. Follow-up with orthopedics for further evaluation and treatment. Call for an appointment. Name and number below. Follow-up with your primary care doctor. If you develop new or worsening symptoms call 911 or come back to the ER for further evaluation. Prescriptions: New naproxen 500 mg tablet 500 mg PO BID PRN (Reason: pain) Qty: 20 0RF No Action ibuprofen 800 mg tablet 1 tab PO DAILY fluticasone propionate 50 mcg/actuation spray,suspension 1 spray intranasal DAILY PRN (Reason: Allergy Symptoms) omeprazole 20 mg capsule,delayed release(DR/EC) 20 mg PO DAILY Qty: 30 0RF prednisone 20 mg tablet 40 mg PO DAILY Qty: 10 0RF benzonatate 100 mg capsule 100 mg PO TID PRN (Reason: cough) Qty: 20 0RF albuterol sulfate 90 mcg/actuation HFA aerosol inhaler 2 puff inhalation Q4-6H PRN (Reason: shortness of breath or wheezing) Qty: 8.5 0RF azithromycin 250 mg tablet See Rx Instructions .ROUTE .COMPLEX Qty: 6 0RF Rx Instructions: For 250 mg dose pack: take 500 mg today (day 1), then 250 mg for 4 days (days 2-5) Referrals: [facility] [place] [facility] [Provider Group] Miguel Martínez MD [Primary Care Provider] - Interventions: ED Discharge Assessment Last Done: 01/11/24 16:34 Discharge Date/Time: 01/11/24 16:35 Print Language: Occitan
[2024-01-11 16:34] VITALS: BP 136/74; PULSE 75; RESP 16; TEMP 37; O2SAT 98
== END 2024-01-11 16:35 | disposition home or self-care (01) ==
PROVIDERS: Emergency Provider Emergency Medicine; PCP Internal Medicine
DX: M75.22 Bicipital tendinitis, left shoulder (principal); M25.512 Pain in left shoulder
CPT/HCPCS: 73030; 99282; 99283

== ENCOUNTER 2024-02-01 16:37 | Outpatient (REF) | payer OTHER, SELFPAY ==
[2024-02-03 11:13] LABS: HPV mRNA E6/E7 Not Detected (Not Detected)
== END 2024-02-01 16:38 | disposition home or self-care (01) ==
LOC: HO.HHCLNP 16:37
PROVIDERS: Visit Provider Advanced Practice Midwife
DX: Z12.4 Encounter for screening for malignant neoplasm of cervix (principal)
CPT/HCPCS: 36415; 87624; 88175

== ENCOUNTER 2024-02-23 09:39 | Outpatient (REF) | payer OTHER, SELFPAY ==
--- NOTE | ~2024-02-23 | MM_ITS ---
EXAMINATION: MM SCREENING DIGITAL BREAST TOMOSYNTHESIS, BILATERAL CLINICAL INFORMATION: Screening. Asymptomatic. COMPARISON: Mammography: Comparison is made with available priors TECHNIQUE: Digital breast mammography with tomosynthesis is performed in both the craniocaudal and mediolateral oblique views along with computer-aided detection (CAD). FINDINGS: There are scattered areas of fibroglandular density (ACR BI-RADS breast composition Category b). There are no significant masses, abnormal calcifications, or other abnormalities. MM/MM tomosynthesis screening BI IMPRESSION: No mammographic evidence of malignancy. ASSESSMENT: BI-RADS BI-RADS 1 - Negative RECOMMENDATION: Routine annual mammography screening. 1 year F/U This examination should not preclude the clinical evaluation of a suspicious palpable abnormality. This patient's information was entered into a reminder system with a target due date for their next mammogram. Electronically signed by: Olga Lidia Carlin DO 03/07/2024 04:10 PM EDT
== END 2024-02-23 09:40 | disposition home or self-care (01) ==
LOC: HO.MAMMO 09:39
PROVIDERS: PCP Internal Medicine; Visit Provider Internal Medicine
DX: Z12.31 Encounter for screening mammogram for malignant neoplasm of breast (principal)
CPT/HCPCS: 77063; 77067

== ENCOUNTER → 2024-02-23 10:00 | Outpatient (BNV) | payer OTHER, SELFPAY | PROVIDERS: PCP Internal Medicine; Visit Provider Internal Medicine | DX: Z12.31 Encounter for screening mammogram for malignant neoplasm of breast (principal) | CPT/HCPCS: 77063; 77067 ==

== ENCOUNTER 2024-03-30 11:13 | Outpatient (REF) | payer OTHER, SELFPAY ==
[2024-03-30 12:06] LABS: Hemoglobin 12.9 g/dl (12.0-16.0); Mean Corpuscular HGB Conc 33.1 g/dl (31.0-35.0); Mean Corpuscular Hemoglobin 31.9 pg (27.0-33.0); Mean Corpuscular Volume 96.5 fL (80.0-98.0); Platelet Count 368 X10*3/uL (160-400); Red Blood Count 4.04 X10*6/uL (4.20-5.50); Red Cell Distribution Width 12.8 % (11.0-16.0); White Blood Count 7.1 X10*3/uL (4.8-10.8)
[2024-03-30 12:39] LABS: Alanine Aminotransferase 30 U/L (0-31); Albumin Level 3.9 g/dL (3.5-5.0); Alkaline Phosphatase 90 U/L (39-117); Anion Gap 9 (12-20); Aspartate Amino Transferase 31 U/L (5-31); Bilirubin Total 0.4 mg/dL (0.0-1.0); Blood Urea Nitrogen 12 mg/dL (9-16); Calcium 9.5 mg/dL (8.4-10.2); Carbon Dioxide 31 mmol/L (22-29); Chloride 107 mmol/L (96-108); Estimated Glomerular Filt Rate > 60; Glucose Random 99 mg/dL (60-115); Sodium 143 mmol/L (135-145); Total Protein 7.2 g/dL (6.5-8.0); Uric Acid 3.9 mg/dL (2.4-5.7)
[2024-03-30 12:40] LABS: Rheumatoid Factor < 13.0 IU/mL (<15.0)
[2024-04-04 15:08] LABS: Anti Nuclear Antibody Screen POSITIVE (NEGATIVE)
== END 2024-03-30 11:14 | disposition home or self-care (01) ==
LOC: HO.LAB 11:13
PROVIDERS: PCP Internal Medicine; Visit Provider Internal Medicine
DX: M79.671 Pain in right foot (principal)
CPT/HCPCS: 36415; 80053; 84550; 85027; 86038; 86039; 86431

== ENCOUNTER 2024-04-22 12:24 | Outpatient (REF) | payer OTHER, SELFPAY ==
[2024-04-22 14:02] LABS: C Reactive Protein 0.12 mg/dL (< or = 0.50)
[2024-04-22 14:07] LABS: Creatinine Urine 128.03 mg/dL; Protein/Creatinine Ratio, Ur 0.12 (<0.2); Total Protein Urine Random 16 mg/dL (<12)
[2024-04-25 08:04] LABS: Complement C3 140 mg/dL (83-193)
[2024-04-25 20:18] LABS: Anti-Centromere B Antibodies <1.0 NEG AI (<1.0 NEG)
[2024-04-26 14:29] LABS: Mitochondrial Ab Titer >1:640 titer (<1:20); Mitochondrial Antibodies POSITIVE (NEGATIVE)
[2024-04-26 22:13] LABS: Anti DNA DS Antibody 1 IU/mL; Antibody to SS-A Antigen <1.0 NEG AI (<1.0 NEG); Antibody to SS-B Antigen <1.0 NEG AI (<1.0 NEG); SM/Ribonucleoprotein Ab <1.0 NEG AI (<1.0 NEG); Scleroderma 70 Antibody <1.0 NEG AI (<1.0 NEG); Smith Protein <1.0 NEG AI (<1.0 NEG)
[2024-05-01 14:13] LABS: Smooth Muscle Antibody <20 U (<20)
== END 2024-04-22 12:25 | disposition home or self-care (01) ==
LOC: HO.LAB 12:24
PROVIDERS: PCP Internal Medicine; Visit Provider Internal Medicine
DX: R76.8 Other specified abnormal immunological findings in serum (principal)
CPT/HCPCS: 36415; 82570; 84156; 86015; 86140; 86160; 86225; 86235; 86381

== ENCOUNTER 2024-05-16 07:39 | Outpatient (REF) | payer OTHER, SELFPAY ==
--- NOTE | ~2024-05-16 | US_ITS ---
EXAMINATION: US ABDOMEN COMPLETE CLINICAL INFORMATION: Positive for anterior mitochondrial antibodies. Evaluate for PBC. COMPARISON: CT abdomen and pelvis 04/23/2021. Ultrasound abdomen 01/24/2014. TECHNIQUE: Real-time imaging of the abdominal viscera. FINDINGS: PANCREAS: Visualized portions are unremarkable. ABDOMINAL AORTA: The proximal, mid, and distal segments are normal in caliber. INFERIOR VENA CAVA: Visualized portions are normal. LIVER: The liver is normal in size. The liver contour is normal. Increased echogenicity of the liver parenchyma, this can be seen in the setting of hepatic steatosis or liver parenchymal disease. No focal hepatic lesion. There is no intrahepatic biliary duct dilatation seen. GALLBLADDER: Surgically absent. COMMON BILE DUCT: Dilated in caliber measuring 0.7 cm in diameter, this is physiologic post cholecystectomy. RIGHT KIDNEY: No hydronephrosis or renal calculi. The kidney measures 10.4 cm in maximum dimension. Simple cyst 1.3 cm. These are commonly benign, no follow-up imaging is indicated. LEFT KIDNEY: No hydronephrosis or renal calculi. The kidney measures 9.2 cm simple cyst lateral kidney measure up to 1.5 x 1.6 cm. These are commonly benign, no follow-up imaging is indicated. SPLEEN: The spleen measures 8.6 cm in maximum dimension. FREE FLUID: None. US/US abdomen complete IMPRESSION: Increased echogenicity of the liver parenchyma, this can be seen in the setting of hepatic steatosis or liver parenchymal disease. Status post cholecystectomy. Dilated common bile duct, might be physiologic post cholecystectomy. Bilateral simple renal cysts, these are commonly benign, no follow-up imaging is indicated. Electronically signed by: Alli Peralta MD 05/29/2024 01:16 PM [place]
== END 2024-05-16 07:40 | disposition home or self-care (01) ==
LOC: HO.US 07:39
PROVIDERS: PCP Internal Medicine; Visit Provider Internal Medicine
DX: R76.8 Other specified abnormal immunological findings in serum (principal)
CPT/HCPCS: 76700

== ENCOUNTER 2024-11-21 10:35 | Emergency (ER) | payer OTHER, SELFPAY ==
--- NOTE | ~2024-11-21 | XR_ITS ---
EXAMINATION: XR CHEST CLINICAL INFORMATION: cough COMPARISON: August 31, 2023. TECHNIQUE: 2 views of the chest were obtained. FINDINGS: No consolidation, pleural effusion or pneumothorax. Bilateral pulmonary reticular nodular pattern. Cardiomediastinal silhouette size is normal. Calcified plaque thoracic aorta with tortuosity. Multilevel thoracolumbar stenosis. Osteopenia versus osteoporosis. S-shaped curvature of the thoracic spine. XR/XR chest 2V IMPRESSION: No acute airspace disease. Electronically signed by: Sami Cook MD 11/21/2024 11:10 AM EDT
[2024-11-21 10:48] VITALS: BP 117/63; PULSE 91; RESP 18; TEMP 36.6; O2SAT 99; BMI 26.5
[2024-11-21 11:54] LABS: Influenza A PCR NEGATIVE (Negative); Influenza B PCR NEGATIVE (Negative); Resp Syncy Virus RNA Qual PCR NEGATIVE (Negative); SARS COV2 PCR INHOUSE NEGATIVE (Negative)
--- NOTE | 2024-11-21 12:18 | ED_ITS ---
HPI - General Adult General Chief complaint: Upper Respiratory Symptoms Stated complaint: diff breathing Time Seen by Provider: 11/21/24 12:17 Source: patient and entry level project coordinator (all interactions with this patient were facilitated with an [facility] Polish interperter) Mode of arrival: ambulatory Limitations: language barrier (all interactions with this patient were facilitated with an [facility] Polish interperter) History of Present Illness ED Provider: Angelica Tony PA-C HPI narrative: Patient is a 68 year old assigned female at with a history of a anemia presenting to the emergency department today with a persistent / worsening cough. Patient states that she has had a cough over the last 5 days and was recently started on antibiotics but it is not helping and her cough is worsening. Patient denies any dizziness, lightheadedness, abdominal pain, nausea, vomiting, fever, chills, blurry vision, double vision, loss of vision, chest pain, difficulty breathing, shortness of breath, back pain, night sweats, pain with urination, increased urinary frequency, increased urinary urgency, blood in her urine or stool, syncope or a near syncopal episode, recent trauma or falls, bowel incontinence, bladder incontinence, or any other complaints at this time. Onset (ago): day(s) (5) Relieving factors: none Exacerbating factors: none Associated symptoms: cough Treatments prior to arrival: other (Azithromycin + Mucinex) Related Data Home Medications ?Medication ?Instructions ?Recorded ?Confirmed fluticasone propionate 50 1 spray intranasal DAILY PRN 04/23/21 04/23/21 mcg/actuation nasal Allergy Symptoms spray,suspension ibuprofen 800 mg tablet 1 tab PO DAILY 04/23/21 04/23/21 Previous Rx's ?Medication ?Instructions ?Recorded omeprazole 20 mg capsule,delayed 20 mg PO DAILY #30 caps 04/25/21 release albuterol sulfate 90 mcg/actuation 2 puff inhalation Q4-6H PRN 08/27/23 aerosol inhaler shortness of breath or wheezing #8.5 grams benzonatate 100 mg capsule 100 mg PO TID PRN cough #20 caps 08/27/23 prednisone 20 mg tablet 40 mg (2 x 20 mg) PO DAILY #10 tabs 08/27/23 azithromycin 250 mg tablet See Rx Instructions PO .COMPLEX #6 08/31/23 tabs naproxen 500 mg tablet 500 mg PO BID PRN pain #20 tabs 01/11/24 benzonatate 100 mg capsule 100 mg PO BID PRN cough 7 days #14 11/21/24 caps doxycycline hyclate 100 mg tablet 100 mg PO BID 7 days #14 tabs 11/21/24 prednisone 20 mg tablet 20 mg PO DAILY 7 days #7 tabs 11/21/24 Allergies Allergy/AdvReac Type Severity Reaction Status Date / Time No Known Allergies Allergy Verified 11/21/24 10:53 Review of Systems Constitutional: Constitutional: Reports no additional constitutional complaints, Denies chills, Denies fever(s) and Denies night sweats Eyes: Eyes: Reports no additional eye complaints, Denies blurry vision, Denies change in vision, Denies diplopia, Denies eye discharge, Denies loss of vision and Denies eye pain ENT: Denies dizziness Cardiovascular: Cardiovascular: Reports no additional cardiovascular complaints, Denies chest pain, Denies lightheadedness, Denies Loss of Consciousness and Denies dyspnea Respiratory: Respiratory: Reports no additional respiratory complaints, Reports cough and Denies dyspnea Gastrointestinal: Gastrointestinal: Reports no additional gastrointestinal complaints, Denies abdominal pain, Denies melena, Denies hematochezia, Denies change in bowel habits and Denies change in stool character Genitourinary: Genitourinary: Denies hematuria, Denies urinary frequency, Denies dysuria, Denies urinary incontinence, Denies urinary hesitancy and Denies urinary urgency Musculoskeletal: Musculoskeletal: Reports no additional musculoskeletal complaints, Denies numbness and Denies tingling Neurologic: Denies dizziness, Denies loss of vision, Denies numbness and Denies tingling Psychiatric: Psychiatric: Reports no additional psychiatric complaints Endocrine: Endocrine: Reports no additional endocrine complaints Hematologic/Lymphatic: Hematologic/Lymphatic: Reports no additional hematologic/lymphatic complaints Allergic/Immunologic: Allergic/Immunologic: Reports no additional allergic/immunologic complaints PMFSH Past Medical History Attestation statement: The following information was validated with the patient. Source: old records reviewed and nursing notes reviewed Medical History Fibromyalgia AYANA (obstructive sleep apnea) Rectal bleed Surgical History History of radiofrequency ablation procedure for cardiac arrhythmia Hx of colonoscopy Family History Family History Mother Breast cancer Father Alzheimer's dementia Hypertension Social History Social History Household Members: Family Household Members Other:: grandson Housing: Apartment Do you presently have visiting nurse or other home services: Yes Alcohol intake: never Patient Tobacco Use Status: Never used Tobacco Advance Directives: Yes Advance Directives on File: Yes Advance Directives Date on File: 04/26/21 service: No Current occupational status: disabled Physical Exam ED Vital Signs: Vital Signs - 24 hr 11/21/24 10:48 11/21/24 12:53 Temperature 97.8 F 97.8 F Pulse Rate 91 91 Respiratory Rate 18 18 Blood Pressure 117/63 117/63 Pulse Oximetry 99 99 Oxygen Delivery Method Room Air Room Air BMI result Body Mass Index 26.5 Const General: cooperative, no acute distress, alert and awake Nutritional Appearance: well nourished Orientation/consciousness: patient oriented x3 HENMT Head: Yes normal to inspection and Yes atraumatic Ears: hearing grossly normal bilaterally and external ears normal General nose exam: Normal external nose present, no nasal discharge noted and no epistaxis Face and sinus: Yes normal facial exam, No abrasion and No laceration Mouth: Normal oral and palatal mucosa present, no drooling and no muffled voice Eyes General: appearance normal, both eyes and all related structures Periorbital: periorbital findings normal Eyelids: Yes eyelids normal Conjunctivae: conjunctivae normal Pupils: Equal, round and reactive pupils present EOM: EOMs intact bilaterally Neck Neck: Yes normal visual inspection, Yes full ROM and Yes no lymphadenopathy Resp Effort & Inspection: normal respiratory effort and able to speak in complete sentences Neuro General: patient oriented x3, moves all extremities and CN's II-XI intact bilaterally Cranial nerves: Yes Equal, round and reactive pupils present Cognition (Neuro): normal cognition Extrem General: Yes normal to inspection, Yes full ROM and Yes capillary refill normal Psych Appearance: grossly normal Mental Status: mental status grossly normal Affect: normal affect Attitude: cooperative Thought process: Normal thought process present Thought content: Normal thought content present Insight: Good insight present (Psych) Medical Decision Making Medical Decision Making MDM Narrative: Patient is a 68 year old assigned female at with a history of a anemia presenting to the emergency department today with a persistent / worsening cough. Patient's physical exam was unremarkable. Patient's chest x-ray showed no acute process. Patient's COVID-19, influenza, and RSV testing was negative. I explained my physical exam findings as well as all test results to the patient. I answered all questions asked by the patient. Given patient is already on an ABX and continues to worsen, will switch ABX and add low dose pred + cough suppressant. I stressed the importance of the patient taking her medication as directed (either prescribed or as the over the counter packaging recommends). I stressed the importance of the patient following up with her primary care provider. I stressed the importance of the patient returning to the emergency department immediately if her symptoms were to worsen or if she were to develop any dizziness, shortness of breath, difficulty breathing, chest pain, blurry vision, loss of vision, nausea, vomiting, abdominal pain, fever, chills, back pain, or any other complaints. Patient verbalized agreement and understanding with this treatment plan and discharge. Differential Diagnosis Differential Diagnoses: The differential diagnosis associated with the presentation includes Cough Bronchitis Admission/Observation Consideration of admission/observation: Escalation of care including admission/observation considered Patient would have been admitted to the hospital had her work up had any findings where hospital admission was appropriate and her clinical presentation warranted hospital admission. Lab Data [facility] Lab Attestation statement: I reviewed the patient's lab results. My interpretation of these results are in the [facility] Rationale portion of this note. Labs: Lab Results 11/21/24 Range/Units 11:07 Influenza Type A (PCR) NEGATIVE (Negative) Influenza Type B (PCR) NEGATIVE (Negative) RSV RNA Qual (PCR) NEGATIVE (Negative) SARS-CoV-2 RNA (RT-PCR) NEGATIVE (Negative) Independent Interpretation I performed an independent interpretation of an: Plain X-Ray (Chest) Interpretation: My interpretation is in agreement with the radiologist's impression of this imaging study. EXAMINATION: XR CHEST CLINICAL INFORMATION: cough COMPARISON: August 31, 2023. TECHNIQUE: 2 views of the chest were obtained. FINDINGS: No consolidation, pleural effusion or pneumothorax. Bilateral pulmonary reticular nodular pattern. Cardiomediastinal silhouette size is normal. Calcified plaque thoracic aorta with tortuosity. Multilevel thoracolumbar stenosis. Osteopenia versus osteoporosis. S-shaped curvature of the thoracic spine. XR/XR chest 2V IMPRESSION: No acute airspace disease. Electronically signed by: Sami Cook MD 11/21/2024 11:10 AM EDT RP Dictated By: Sami More MD Signed By: Electronically signed by Sami Mederos MD 11/21/24 1110 Radiology Impression Discussion of test interpretation with radiology: I have reviewed the radiologist's reading. Prescription Management I considered prescription management with: Antibiotic (Patient prescribed an antibiotic) Discharge Plan Discharge Clinical Impression: Bronchitis Patient Disposition: Home, Self-Care Instructions: Acute Bronchitis (ED) Additional Instructions: Follow up with your primary care provider. Return to the emergency department immediately if your symptoms worsen or if you develop any dizziness, shortness of breath, difficulty breathing, chest pain, blurry vision, loss of vision, nausea, vomiting, abdominal pain, fever, chills, back pain, or any other complaints. Gonzalo?seguimiento?con powers m?dico de atenci?n primaria. Acuda inmediatamente al servicio de urgencias si juventino s?ntomas empeoran o si presenta falta de aliento, dificultad para respirar, dolor tor?cico, mareos, aturdimiento, dolor de espalda, dolor abdominal, fiebre, escalofr?os o cualquier otro s?ntoma. Please see the information below about our Patient Portal. If you are not yet enrolled in the [facility] Patient Portal, you will receive an enrollment email invitation following your visit to any [facility] care setting. You may also self-enroll in the Patient Portal by visiting our website: [email or web address] The following information is required to access the Patient Portal: - Your [facility] Medical Record Number - Your personal home email address (must match what is in your electronic medical record, Registration staff can assist with this) - Name - Date of Capabilities of the Patient Portal: - Message some providers - View upcoming appointments - Access your health summary, medical history, and visit history - View current conditions and allergies - View procedure and lab results - View your medications, including guidelines, side effects, and precautions - Complete pre-appointment questionnaires requested by your provider - Ready summary reports of your office visits and procedures To access the Patient Portal Mobile Casie, follow these directions: - Search [employer] in the Casie Store or Trapit Store - Download the Casie - Search for [facility] - Enter your login/password Portal del paciente Si usted no esta inscrito en el portal de pacientes de [facility], recibira dylon invitacion de inscripcion despues de powers visita al [facility] o al [facility] via correo electronico. Tambien puede inscribirse v oluntariamente en el portal de pacientes visitando nuestra pagina web: [email or web address] La siguiente informacion sera requerida para acceder al portal: - Powers julio c de historia medica de [facility] - Powers direccion de correo electronico personal - Nombre - Fecha de nacimiento Capacidades: Las siguientes capacidades estan disponibles en el portal de pacientes: - Enviar mensajes a algunos doctores - Verificar proximas citas - Acceso a powers historial de jarad, registro medico e historial de visitas - Sowmya las condiciones actuales y alergias sowmya procedimientos y resultados del laboratorio - Sowmya juventino medicamentos, incluyendo las pautas - Efectos secundarios y precauciones - Completar o llenar formularios / cuestionarios de - Citas solicitadas por powers doctor - Leer los resumenes de reportes medicos de juventino visitas y procedimientos [place] acceder a la aplicacion movil: - Seema [facility] en la Casie Store o [employer] R[employer]V Store - Descargue la aplicacion - [facility] - Ingrese powers nombre de usuario / Contrasena Prescriptions: New prednisone 20 mg tablet 20 mg PO DAILY 7 Days Qty: 7 0RF benzonatate 100 mg capsule 100 mg PO BID PRN (Reason: cough) 7 Days Qty: 14 0RF doxycycline hyclate 100 mg tablet 100 mg PO BID 7 Days Qty: 14 0RF No Action ibuprofen 800 mg tablet 1 tab PO DAILY fluticasone propionate 50 mcg/actuation spray,suspension 1 spray intranasal DAILY PRN (Reason: Allergy Symptoms) omeprazole 20 mg capsule,delayed release(DR/EC) 20 mg PO DAILY Qty: 30 0RF naproxen 500 mg tablet 500 mg PO BID PRN (Reason: pain) Qty: 20 0RF prednisone 20 mg tablet 40 mg PO DAILY Qty: 10 0RF benzonatate 100 mg capsule 100 mg PO TID PRN (Reason: cough) Qty: 20 0RF albuterol sulfate 90 mcg/actuation HFA aerosol inhaler 2 puff inhalation Q4-6H PRN (Reason: shortness of breath or wheezing) Qty: 8.5 0RF azithromycin 250 mg tablet See Rx Instructions .ROUTE .COMPLEX Qty: 6 0RF Rx Instructions: For 250 mg dose pack: take 500 mg today (day 1), then 250 mg for 4 days (days 2-5) Referrals: Miguel Martínez MD [Primary Care Provider] - Interventions: ED Discharge Assessment Last Done: 11/21/24 12:53 Discharge Date/Time: 11/21/24 12:53 Print Language: Polish
[2024-11-21 12:53] VITALS: BP 117/63; PULSE 91; RESP 18; TEMP 36.6; O2SAT 99
--- OUTSIDE RECORDS SUMMARY | 2024-11-21 13:46 | XMS_ITS | Encounter Summary ---
Author Organization [employer] Address [address] [place] [address] [address] [place] [address] Care Team Providers Care Police Captain Senior Name Role Phone Miguel Mcpherson MD Primary Care Provide r Encounter Details Date Type Department Care Team (Late Contact Info) Description 02/20/2023 Abstract [facility] MEDICINE [address] [place] [address] [phone] Miguel Mcpherson MD [address] [place], [place] [phone] Social History Tobacco Use Types Packs/Day Years Used Date Smoking Tobacco: Never Passive Smoke Exposure: Never Smokeless Tobacco: Never Alcohol Use Standard Drinks/Week Comments Never 0 (1 standard drink = 0.6 oz pur e alcohol) Depression Answer Date Recorded Patient Health Questionnaire-9 Score 5 07/10/2022 Depression Answer Date Recorded Patient Health Questionnaire-2 Score 2 07/10/2022 Comments Unknown Sex and Gender Information Value Date Recorded Sex Assigned at Female 04/07/2022 10:14 AM EDT Legal Sex Female 10:14 AM EDT Gender Identity Female 04/07/2022 10:14 AM EDT Sexual Orientation Straight 04/07/2022 10 :14 AM EDT documented as of this encounter Plan of Treatment Upcoming Encounters Date Type Department Care Team (Late st Contact Info) Description 02/15/2025 10:00 AM EDT Office Visit [facility] MEDICINE [address] [place] [id number] Tanvi Correa CNM [address] [place], [place] [phone] documented as of this encounter Procedures Procedure Name Priority Date/Time Associated Diagnosis Comments MAMMOGRAPHY Routine 02/19/2023 documented in this encounter Results * Mammography (02/19/2023) Mammogram BI-RADS 2 - Benign Findings Anatomical Region Laterality Modality Other Miguel Faye MD HEALTH MAINTENANCE nal Result documented in this encounter Visit Diagnoses Not on filedocumented in this encounter Additional Health Concerns Assessment Noted Time PHQ-9 Depression Total Score: 5 07/10/19 23 11:25 AM EST documented as of this encounter Care Teams Police Captain Senior Relationship Specialty Start Date End Date Miguel Mcpherson MD [address] [place] [id number] PCP - General Internal Medicine 01/27/14 documented as of this encounter
== END 2024-11-21 12:53 | disposition home or self-care (01) ==
PROVIDERS: Emergency Provider Emergency Medicine Emergency Medical Services; PCP Internal Medicine
DX: J40 Bronchitis, not specified as acute or chronic (principal); R05.9 Cough, unspecified; Z03.818 Encounter for observation for suspected exposure to other biological agents ruled out
CPT/HCPCS: 0241U; 71046; 99282; 99283

== ENCOUNTER → 2024-11-21 10:54 | Outpatient (BNV) | payer OTHER, SELFPAY | PROVIDERS: PCP Internal Medicine; Visit Provider Radiology Diagnostic Radiology | DX: R05.9 Cough, unspecified (principal) | CPT/HCPCS: 71046 ==

== ENCOUNTER 2025-02-27 11:13 | Outpatient (AMB) | payer OTHER, SELFPAY ==
--- NOTE | 2025-02-27 11:14 | A.OFFVIS_ITS ---
Vital Signs 02/27/25 11:19 Height 4 ft 10 in Weight 127 lb 13.89 oz BMI 26.7 BP 140/69 H Position Sitting Pulse 94 Intake Visit Reasons: abn liver us, + AMA Intake Note: Ayaka presents in the office as a new patient for abnormal liver US and AMA. CC: She only takes ibuprofen for her fibromyalgia. Automobile Assembly Supervisor Required: No Allergies No Known Allergies Allergy (Verified 11/21/24 10:53) HPI HPI abn liver us, + AMA: Details: HPI 69-year-old female with past medical history of AYANA and fibromyalgia who I am seeing for assessment I last saw her 2020 as in patient for rectal bleeding EGD AND COLO with small hiatal hernia, diverticulosis and hemorrhoids SHe had labs checked with nml LFT but AMA high titer US with liver steatosis, she takes ibuprofen 800 mg daily for fibromyalgia no itching, or jaundice, no abdominal pain good appetite, drinks a lot of coffee, 10 cups a day no alcohol, no drugs no smoking ROS: Constitutional : No Weight loss, No Fever, No Chills ENT/Mouth : No sore throat, No Rhinorrhea Eyes: No Swelling, No Redness Cardiovascular : No Chest Pain, No SOB, No Edema Respiratory : No Cough, No Sputum, No Wheezing Gastrointestinal : see HPI Genitourinary : NO Dysuria, No Urinary Frequency, No Hematuria, No Urgency Musculoskeletal : + joint pain, No Myalgias, No Joint Swelling Skin : No Skin Lesions, No rash Neuro : No Weakness, No Numbness, No Dizziness, No Headache Psych : No Anxiety/Panic, No Depression Heme/Lymph: No Bruising, No Lymphadenopathy Endocrine : No Polyuria, No Polydipsia All other systems reviewed and are negative. Medical History Fibromyalgia AYANA (obstructive sleep apnea) Rectal bleed Surgical History History of radiofrequency ablation procedure for cardiac arrhythmia Hx of colonoscopy Family History Mother Breast cancer Father Alzheimer's dementia Hypertension Social History Household Members: Family Household Members Other:: grandson Housing: Apartment Do you presently have visiting nurse or other home services: Yes Alcohol intake: never Patient Tobacco Use Status: Never used Tobacco Advance Directives Date on File: 04/26/21 service: No Current occupational status: disabled EXAM: GENERAL: The patient is well developed and nontoxic. VITAL SIGNS:see workflow HEENT: Nonicteric sclerae, PERRLA, EOMI. Oropharynx clear. Moist mucous membranes. Conjunctivae appear well perfused. No thyroid mass. CHEST: Chest wall is nontender. HEART: Regular rate and rhythm without murmurs. LUNGS: Clear to auscultation bilaterally. ABDOMEN: Soft, positive bowel sounds, nontender, no organomegaly.no flank tenderness SKIN: No rash, no excessive bruising, petechiae, or purpura. NEUROLOGIC: Cranial nerves II-XII intact without motor/sensory deficit. Psych: normal affect A/P: 1/ Fatty liver, no evidence of MASH on last labs, high AMA< PLAN: /1 - if LFT remain nml, then can hold off treatment, if high then treat for PBC 2/ try to cut down coffee and ibuprofen PFSH Medical History Fibromyalgia AYANA (obstructive sleep apnea) Rectal bleed Surgical History History of radiofrequency ablation procedure for cardiac arrhythmia Hx of colonoscopy Family History Mother Breast cancer Father Alzheimer's dementia Hypertension Social History Household Members: Family Household Members Other:: grandson Housing: Apartment Do you presently have visiting nurse or other home services: Yes Alcohol intake: never Patient Tobacco Use Status: Never used Tobacco Advance Directives Date on File: 04/26/21 service: No Current occupational status: disabled Physical Exam Vital Signs: Last Vital Signs Pulse 94 02/27/25 11:19 BP 140/69 H 02/27/25 11:19 BMI result Body Mass Index 26.7 Assessment & Plan Assessment & Plan (1) Fatty liver: Code(s): K76.0 - Fatty (change of) liver, not elsewhere classified Category: Medical Plan: as above Coding Level of Care Code New Pt Level 4 (50231) Diagnoses Fatty liver K76.0
[2025-02-27 11:19] VITALS: BP 140/69; PULSE 94; BMI 26.7
--- OUTSIDE RECORDS SUMMARY | 2025-02-27 13:53 | XMS_ITS | Encounter Summary ---
Author Organization [employer] Address [address] [facility] [address] [place] [address] Care Team Providers Care Casino Games Dealer Name Role Phone Miguel Mcpherson MD Primary Care Provide r Encounter Details Date Type Department Care Team ([facility] st Contact Info) Description 03/13/2023 Orders Only [facility] MED [facility] PEDS [address] [place] [address] Liliane Sahu LPN Social History Tobacco Use Types Packs/Day Years Used Date Smoking Tobacco: Never Passive Smoke Exposure: Never Smokeless Tobacco: Never Alcohol Use Standard Drinks/Week Comments Never 0 (1 standard drink = 0.6 oz pur e alcohol) Depression Answer Date Recorded Patient Health Questionnaire-9 Score 5 07/10/2022 Housing Stability Answer Date Recorded What is your housing situation today? I have roland avitia 03/15/[address] you li ve. Do you have problems with any of the following? None of the above 03/15/2023 Food Insecurity Answer Date Recorded Within the past 12 months, y ou worried that your food would run out before you got money to buy more: Never True 03/15/2023 Within the past 12 months,th e food you bought just didn't last and you didn't have enough money to get more: Never True 01/2023 Transportation Answer Date Recorded In the past 12 months, has l ack of transportation kept you from medical appts, meetings, work or from getting things needed for daily living? No 03/15/2023 Utilities Answer Date Recorded In the past 12 months, has t he electric, gas, oil or water company threatened to shut off services in your home? No 03/15/2023 Depression Answer Date Recorded Patient Health Questionnaire-2 Score 2 07/10/2022 Comments Unknown Sex and Gender Information Value Date Recorded Sex Assigned at Female 04/07/2022 10:14 AM EDT Legal Sex Female 10:14 AM EDT Gender Identity Female 04/07/2022 10:14 AM EDT Sexual Orientation Straight 04/07/2022 10 :14 AM EDT documented as of this encounter Plan of Treatment Not on file documented as of this encounter Visit Diagnoses Not on filedocumented in this encounter Additional Health Concerns Assessment Noted Time PHQ-9 Depression Total Score: 5 07/10/19 23 11:25 AM EST documented as of this encounter Care Teams Casino Games Dealer Relationship Specialty Start Date End Date Miguel Mcpherson MD [address] [place] [id number] PCP - General Internal Medicine 01/27/14 documented as of this encounter
--- OUTSIDE RECORDS SUMMARY | 2025-02-27 13:53 | XMS_ITS | Encounter Summary ---
Author Organization [employer] Address [address] [facility] [address] [place] [address] Care Team Providers Care University Manager Name Role Phone Miguel Mcpherson MD Primary Care Provide r Encounter Details Date Type Department Care Team ([facility] st Contact Info) Description 02/20/2023 Abstract [facility] MEDICINE [address] [place] [address] Miguel Mcpherson MD [address] [place] [address] Social History Tobacco Use Types Packs/Day Years [...] on file documented as of this encounter Procedures Procedure Name Priority Date/Time Associated Diagnosis Comments MAMMOGRAPHY Routine 02/19/2023 documented in this encounter Results * Mammography (02/19/2023) Mammogram BI-RADS 2 - Benign Findings Anatomical Region Laterality Modality Other us Miguel Faye MD HEALTH MAINTENANCE Fi nal Result documented in this encounter Visit Diagnoses Not on filedocumented in this encounter Additional Health Concerns Assessment Noted Time PHQ-9 Depression Total Score: 5 07/10/19 23 11:25 AM EST documented as of this encounter Care Teams University Manager Relationship Specialty Start Date End Date Miguel Mcpherson MD [address] [place] [address] PCP - General Internal Medicine 01/27/14 documented as of this encounter
--- OUTSIDE RECORDS SUMMARY | 2025-02-27 13:53 | XMS_ITS | Encounter Summary ---
Author Organization [employer] Address [address] [facility] [address] [place] [address] Care Team Providers Care Fender Repairer Name Role Phone Miguel Mcpherson MD Primary Care Provide r Encounter Details Date Type Department Care Team (Late st Contact Info) Description 02/27/2025 Orders Only GENERIC EXTERNAL DATA DEPARTMENT Provider, Generic External Data Social History Tobacco Use Types Packs/Day Years Used Date Smoking Tobacco: Never Passive Smoke Exposure: Never Smokeless Tobacco: Never Alcohol Use Standard Drinks/Week Comments Never 0 (1 standard drink = 0.6 oz pur e alcohol) Alcohol Answer Date Recorded Frequency of Alcohol Consumption Not on file 04/12/2024 Average Number of Drinks Not on file 024 Frequency of Binge Drinking Not on file 10/2023 Score 0 04/12/2024 Depression Answer Date Recorded Patient Health Questionnaire-9 Score 0 02/04/2024 Patient Health Questionnaire-9 Score 0 02/04/2024 Last PHQ-9: Questionnaire Data Not on file 0 02/04/2024 Housing Stability Answer Date Recorded What is your housing situation today? I have roland avitia 04/12/[address] you li ve. Do you have problems with any of the following? None of the above 04/12/2024 Food Insecurity Answer Date Recorded Within the past 12 months, y ou worried that your food would run out before you got money to buy more: Never True 09/01/2023 Within the past 12 months,th e food you bought just didn't last and you didn't have enough money to get more: Never True Transportation Answer Date Recorded In the past 12 months, has l ack of transportation kept you from medical appts, meetings, work or from getting things needed for daily living? No 09/01/2023 Utilities Answer Date Recorded In the past 12 months, has t he electric, gas, oil or water company threatened to shut off services in your home? No 09/01/2023 Depression Answer Date Recorded Patient Health Questionnaire-2 Score 0 02/04/2024 Internet Access Answer Date Recorded Internet Access Q1 I am not sure 04/12/2024 Internet Access Q2 Not on file 04/12/2024 Comments No Sex and Gender Information Value Date Recorded Sex Assigned at Female 04/07/2022 10:14 AM EDT Legal Sex Female 10:14 AM EDT Gender Identity Female 04/07/2022 10:14 AM EDT Sexual Orientation Straight 04/07/2022 10 :14 AM EDT documented as of this encounter Plan of Treatment Not on file documented as of this encounter Procedures Procedure Name Priority Date/Time Associated Diagnosis Comments CBC WITH AUTO DIFFERENTIAL Routine 02/27/2025 12:16 PM EDT PROTHROMBIN TIME-INR Routine 02/27/2025 12:16 PM EDT documented in this encounter Results * Prothrombin Time-INR (02/27/2025 12:16 PM EDT) Prothrombin Time 11.0 10.9 - 12.4 SEC [facility] INTERNATIONAL NORM RATIO 1.0 0.9 - 1.1 [facility] Comment:INTERNATIONAL NORMAL IZED RATIO (INR) REFERENCE RANGES Reference RangeFor patients not on anticoagulant therapy: 0.9 - 1.1INR ranges for oral anticoagulanttherapy:For prevention and treatment of venous thrombosis and pulmonary embolism: 2.0 - 3.0For acute myocardial infarction with aspirin therapy: 2.0 - 3.0For acute myocardial infarction without aspirin therapy: 3.0 - 4.0For patients with mechanical prosthetic heart valves: 2.5 - 3.5 02/27/2025 12:1 6 PM EDT 02/27/2025 12:16 PM EDT us Generic External Data Provider LAB BLOOD ORDERAB LES Final Result [facility] [address] [place] [phone] * (ABNORMAL) CBC auto differential (02/27/2025 12:16 PM EDT) White Blood Count 5.7 4.8 - 10.8 X10*3/uL [facility] Red Blood Count 4.02(L) 4.20 - 5.50 X10*6/uL [facility] Hemoglobin 12.9 12.0 - 16.0 g/dl [facility] Hematocrit 38.1 37.0 - 47.0 % [facility] Mean Corpuscular Volume 94.8 80.0 - 98.0 fL [facility] Mean Corpuscular Hemoglobin 32.1 27.0 - 33.0 pg [facility] Mean Corpuscular HGB Conc 33.9 31.0 - 35.0 g/dl [facility] Red Cell Distribution Width 13.0 11.0 - 16.0 % [facility] Platelet Count 400 160 - 400 X10*3/uL [facility] Mean Platelet Volume 9.2(L) 9.4 - 12.3 fL [facility] Neutrophils Percent Auto 54.7 45 - 73 % [facility] Imm Gran Pct Auto 0.2 0.0 - 0.4 % [facility] Lymphocytes Percent Auto 29.0 20 - 40 % [facility] Monocytes Percent Auto 11.1(H) 2 - 11 % [facility] Eosinophils Percent Auto 3.9 0 - 4 % [facility] Basophils Percent Auto 1.1 0 - 2 % [facility] NRBC Pct Auto 0.0 0.0 - 0.2 /100WBC [facility] Neutrophils Absolute Auto 3.1 2.0 - 8.3 x10*3/uL [facility] Imm Gran Abs Auto 0.01 0.00 - 0.03 X10*3/uL [facility] Lymphocytes Absolute Auto 1.7 1.2 - 4.9 X10*3/uL [facility] Monocytes Absolute Auto 0.6 0.1 - 1.2 X10*3/uL [facility] Eosinophils Absolute Auto 0.2 0.0 - 0.4 X10*3/uL [facility] Basophils Absolute Auto 0.1 0.0 - 0.2 X10*3/uL [facility] NRBC Abs Auto 0.000 0.0 - 0.012 X10*3/uL [facility] 02/27/2025 12:1 6 PM EDT 02/27/2025 12:16 PM EDT us Generic External Data Provider LAB BLOOD ORDERAB LES Final Result [facility] [address] [place] [phone] documented in this encounter Visit Diagnoses Not on filedocumented in this encounter Additional Health Concerns Assessment Noted Time PHQ-9 Depression Total Score: 0 02/04/20 24 11:41 AM EDT documented as of this encounter Care Teams Fender Repairer Relationship Specialty Start Date End Date Miguel Mcpherson MD [address] [place] [address] PCP - General Internal Medicine 01/27/14 documented as of this encounter
--- OUTSIDE RECORDS SUMMARY | 2025-02-27 13:54 | XMS_ITS | Encounter Summary ---
Author Organization [employer] Address [address] [facility] [address] [place] [address] Care Team Providers Care Layer Up Name Role Phone Miguel Mcpherson MD Primary Care Provide r Reason for Visit * Reason Comments Med Refill Encounter Details Date Type Department Care Team ([facility] st Contact Info) Description 08/16/2023 Refill [facility]INE [address] [place], [place] [phone] Miguel Mcpherson MD [address] [place], [place] [phone] Social History Tobacco Use Types Packs/Day Years Used Date Smoking Tobacco: Never Passive Smoke Exposure: Never Smokeless Tobacco: Never Alcohol Use Standard Drinks/Week Comments Never 0 (1 standard drink = 0.6 oz pur e alcohol) Depression Answer Date Recorded Patient Health Questionnaire-9 Score 5 07/10/2022 Housing Stability Answer Date Recorded What is your housing situation today? I have roland avitia 03/25/[address] you li ve. Do you have problems with any of the following? None of the above 03/25/2023 Food Insecurity Answer Date Recorded Within the past 12 months, y ou worried that your food would run out before you got money to buy more: Never True 03/25/2023 Within the past 12 months,th e food you bought just didn't last and you didn't have enough money to get more: Never True Transportation Answer Date Recorded In the past 12 months, has l ack of transportation kept you from medical appts, meetings, work or from getting things needed for daily living? No 03/25/2023 Utilities Answer Date Recorded In the past 12 months, has t he electric, gas, oil or water [employer] threatened to shut off services in your home? No 03/25/2023 Depression Answer Date Recorded Patient Health Questionnaire-2 [...] documented as of this encounter Care Teams Layer Up Relationship Specialty Start Date End Date Miguel Mcpherson MD [address] [place] [address] PCP - General Internal Medicine 01/27/14 documented as of this encounter
--- OUTSIDE RECORDS SUMMARY | 2025-02-27 13:54 | XMS_ITS | Encounter Summary ---
Author Organization [employer] Address [address] [facility] [address] [place] [address] Care Team Providers Care Pack Mule Worker Name Role Phone Miguel Mcpherson MD Primary Care Provide r Reason for Visit * Reason Comments Med Refill Encounter Details Date Type Department Care Team ([facility] st Contact Info) Description 09/14/2022 Refill [facility] MEDICINE [address] [place] [phone] Miguel Mcpherson MD [address] [place] [address] Social History Tobacco Use Types Packs/Day Years Used Date Smoking Tobacco: Never Smokeless Tobacco: Never Alcohol Use Standard [...] Orientation Straight 04/07/2022 10 :14 AM EDT COVID-19 Exposure Response Date Recorded In the last 10 days, have yo raghav been in contact with someone who was confirmed or suspected to have Coronavirus/COVID-19? No / Unsure 08/22/2022 10:49 AM EDT documented as of this encounter Plan of Treatment Not on file documented as of this encounter Visit Diagnoses Not on filedocumented in this encounter Additional Health Concerns Assessment Noted Time PHQ-9 Depression Total Score: 5 02/02/20 23 11:25 AM EST documented as of this encounter Care Teams Pack Mule Worker Relationship Specialty Start Date End Date Miguel Mcpherson MD [address] [place] [phone] PCP - General Internal Medicine 01/27/14 documented as of this encounter
--- OUTSIDE RECORDS SUMMARY | 2025-02-27 13:54 | XMS_ITS | Clinical Summary ---
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 180 tablet 1 3 Active estradiol (Estrace) 0.1 MG/GM vaginal cream Use 1g vaginally nightly x 14 days, then use 1g twice a week ongoing 42.5 g 1 3 Active pseudoephedrine (Sudafed) 30 MG tablet Take 1 tablet (30 mg) by mouth every 4 (four) hours if needed for congestion for up to 10 days. 30 tablet 4 Active zolpidem (Ambien) 10 MG tabletIndications :Primary insomnia Take 1 tablet (10 mg) by mouth if needed at bedtime for sleep. 30 tablet 1 4 Active ibuprofen 800 MG tabletIndications :Viral URI with cough TOME EL TABLETA ED VECES AL BRAVO CON ALIMENTO CUANDO SEA NECESARIO 60 tablet 3 5 Active Azelastine HCl 137 MCG/SPRAY solution USE 1 SPRAY INTO EACH NOSTRIL 2 TIMES A DAY DIRECTED 30 mL 5 5 Active Active Problems Problem Noted Date Diagnosed Date Abnormal liver ultrasound 06/30/2024 Assessment & Plan (06/30/2024 1:09 PM EST): Recent Abdominal US showed: IMPRESSION: Increased echogenicity of the liver parenchyma, this can be seen in the setting of hepatic steatosis or liver parenchymal disease. Status post cholecystectomy. Dilated common bile duct, might be physiologic post cholecystectomy. Of note patient also tested POSITIVE for AMA Plan: gastroenterology referral Viral URI with cough 06/30/2024 Assessment & Plan (11/18/2024 1:42 PM EDT): Consistent with viral URI Supportive measures reviewed, Return to clinic for worsening symptoms or failure to resolve Assessment & Plan (06/30/2024 1:21 PM EST): Symptoms and exam indicative of this. Rapid flu and covid test negative Plan: supportive measures Positive ELIJAH (antinuclear antibody) 04/12/2024 Assessment & Plan (06/30/2024 1:07 PM EST): Patient with persistent c/o generalized arthralgias, mainly affecting her knees. As part of her work up she had an ELIJAH that was positive ELIJAH Titer titer 1:1280 Abnormal Comment: Reference Range <1:40 Negative 1:40-1:80 Low Antibody Level >1:80 Elevated Antibody Level ELIJAH Pattern Abnormal Comment: Cytoplasmic, Reticular/AMA Abnormal Flag: ACoarse granular filamentous staining extendingthroughout the cytoplasm (e.g., anti-mitochondrialantibodies). Pattern is common in primary biliarycholangitis (PBC), systemic sclerosis, and rare inother systemic autoimmune rheumatic diseases (SARD).AC-21: Reticular/AMAInternational Consensus on ELIJAH Patterns(https://[email or web address]/[email or web address]) ELIJAH TITER 2 (REF LAB) titer 1:640 Abnormal Comment: Reference Range <1:40 Negative 1:40-1:80 Low Antibody Level >1:80 Elevated Antibody Level ELIJAH Pattern 2 Abnormal Comment: Nuclear, Smooth Nuclear Envelope Abnormal Flag: AHomogeneous staining of the nucleus with accentuationof the outer rim is associated with systemic lupuserythematosus (SLE), Sjogren's syndrome andseronegative arthritis.AC-11: Smooth Nuclear EnvelopeInternational Consensus on ELIJAH Patterns(https://[email or web address]/[email or web address]/[email or web address])THIS TEST WAS PERFORMED AT:[facility] [place] [phone] JOHN MD Patient has been [facility], She was given an appointment for next year in September and was placed in a cancellation list. I have order further testing. Assessment & Plan (04/12/2024 5:44 PM EST): Patient with persistent c/o generalized arthralgias, mainly affecting her knees. As part of her work up she had an ELIJAH that was positive ELIJAH Titer titer 1:1280 Abnormal Comment: Reference Range <1:40 Negative 1:40-1:80 Low Antibody Level >1:80 Elevated Antibody Level ELIJAH Pattern Abnormal Comment: Cytoplasmic, Reticular/AMA Abnormal Flag: ACoarse granular filamentous staining extendingthroughout the cytoplasm (e.g., anti-mitochondrialantibodies). Pattern is common in primary biliarycholangitis (PBC), systemic sclerosis, and rare inother systemic autoimmune rheumatic diseases (SARD).AC-21: Reticular/AMAInternational Consensus on ELIJAH Patterns(https://[email or web address]/[email or web address]/[email or web address]) ELIJAH TITER 2 (REF LAB) titer 1:640 Abnormal Comment: Reference Range <1:40 Negative 1:40-1:80 Low Antibody Level >1:80 Elevated Antibody Level ELIJAH Pattern 2 Abnormal Comment: Nuclear, Smooth Nuclear Envelope Abnormal Flag: AHomogeneous staining of the nucleus with accentuationof the outer rim is associated with systemic lupuserythematosus (SLE), Sjogren's syndrome andseronegative arthritis.AC-11: Smooth Nuclear EnvelopeInternational Consensus on ELIJAH Patterns(https://[email or web address]/[email or web address]/[email or web address]-[email or web address])THIS TEST WAS PERFORMED AT:[facility] [place] [phone] JOHN MD Patient has been referred to [facility] for [facility], She was given an appointment for next year in September and was placed in a cancellation list. I have order further testing. Ill-fitting dentures 01/19/2024 Localized gingival recession, minimal 12/22/2023 Missing teeth, acquired 12/22/2023 Venous insufficiency of both lower extremities 1 06/23/2022 Assessment & Plan (02/04/2024 11:49 AM EDT): Previously I recommended Compressive stockings And Vascular evaluation, seen 11/24/2023 Assessment & Plan (04/23/2023 2:07 PM EST): Exam indicative of this Plan: Compressive stocking Vascular evaluation Acute pain of right shoulder 02/05/2023 Assessment & Plan (04/23/2023 1:58 PM EST): Pt here for a follow up Plain films 02/09/2023 Normal Referred for PT eval pt cancelled appointments Assessment & Plan (02/05/2023 12:43 PM EDT): Unclear etiology Plan: Plain films , PT eval Suspect tendinitis Right foot pain 02/05/2023 Assessment & Plan (04/23/2023 1:59 PM EST): Pt with previous c/o right foot pain in the absence of any trauma. On exam no palpable masses, no redness nor swelling. There was tenderness to palpation Plain films 02/09/2023 showed hammer toes Referred to Podiatry, pt was supposed to call for an appointment but never did Assessment & Plan (02/05/2023 12:44 PM EDT): Pt with c/o right foot pain for over 1 month in the absence of any trauma. On exam no palpable masses, no redness nor swelling. There is tenderness to palpation Plan: Plain films, Podiatry evaluation, discussed the use of proper shoes Allergic rhinitis due to pollen 07/09/2022 Lung nodule 07/09/2022 Assessment & Plan (07/09/2022 2:39 PM EST): Last CT of chest showed: Stable 3 mm left upper lobe nodule compared to previous study 09/17/2020. No new nodules seen. Bilateral lower lobe dependent segment, right middle lobe and lingular patchy parenchymal opacities likely atelectasis. Postmenopausal osteoporosis 07/09/2022 Assessment & Plan (07/10/2022 11:22 AM EST): Pt here for a f/u She had a bone density 02/14/2022 that showed osteoporosis Calcium level was within normal limits Vit D level was low at 26 ( recommended to be > 30 prior to start Rx with bisphosphonates) and SCr. was normal Pt on Oscal-D 500 po BID Will repeat Vit D and Calcium levels if corrected will start Rx for Osteoporosis F/U with me in 4 months Recurrent major depressive episodes, moderate Assessment & Plan (07/09/2022 2:41 PM EST): Currently doing well Preventative health care 07/09/2022 Assessment & Plan (02/04/2024 11:48 AM EDT): Mammogam: 02/19/2023 Normal Pap : 02/01/2024 Neg with Co test 5 yr follow up Colonoscopy 01/27/2017 Normal aside from Diverticulosis Assessment & Plan (04/23/2023 1:59 PM EST): Mammogam: 02/19/2023 Normal Pap : 12/2018 Colonoscopy 01/27/2017 Normal aside from Diverticulosis Assessment & Plan (02/05/2023 9:34 AM EDT): Mammogam: Pap : 12/2018 Colonoscopy 01/27/2017 Normal aside from Diverticulosis Assessment & Plan (07/09/2022 2:42 PM EST): Colonoscopy 01/27/2017 Normal aside from Diverticulosis Aneurysm of iliac artery 09/08/2017 Assessment & Plan (07/09/2022 2:40 PM EST): Incidental finding on CT of Suspect a small left internal iliac branch aneurysm at the ischial fossa. Pt evaluated by Vascular surgery 12/11/2017 they did not see it and recommended No further f/u Mild asthma 08/02/2012 Assessment & Plan (02/04/2024 11:41 AM EDT): Patient here for a follow up No recent exacerbations PFTS 03/11/2017 showed only mild restrictive disorder NO obstructive Assessment & Plan (07/09/2022 2:39 PM EST): No recent exacerbations PFTS 03/11/2017 showed only mild restrictive disorder NO obstructive Multinodular goiter 08/02/2012 Assessment & Plan (02/05/2023 9:32 AM EDT): Patient here for a f/u Hx of multi nodular thyroid goiter, under the care of biomechanical engineer (Dr Yepez) Seen last in August 22, 2011, His impression was that she had a homogeneous gland with mild fibrosis bilaterally, negative peroxidase and thyroglobulin Ab, clinically euthyroid not on thyroxine hormone. Both US that he conducted in the past had been benign. She did have a small lesion that measured 0.225 in the largest dimension and he thought pt will have a repeat Us in 3 years (2014). Pt was seen by Dr Yepez 04/27/2015 and had a repeat US on 05/17/2015 Nodules seen were to small to do FNA or biopsy Dr Yepez recommended to repeat US in 5 years 2019 Repeat Thyroid U/S 07/30/2022 showed: A small left thyroid lobe nodule Assessment & Plan (07/10/2022 12:24 PM EST): Patient here for a f/u Hx of multi nodular thyroid goiter, under the care of biomechanical engineer (Dr Yepez) Seen last in August 22, 2011, His impression was that she had a homogeneous gland with mild fibrosis bilaterally, negative peroxidase and thyroglobulin Ab, clinically euthyroid not on thyroxine hormone. Both US that he conducted in the past had been benign. She did have a small lesion that measured 0.225 in the largest dimension and he thought pt will have a repeat Us in 3 years (2014). Pt was seen by Dr Yepez 04/27/2015 and had a repeat US on 05/17/2015 Nodules seen were to small to do FNA or biopsy Dr Yepez recommended to repeat US in 5 years 2019 Repeat Thyroid U/S 08/22/2021 showed: Unremarkable thyroid ultrasound. Small nonsuspicious nodule lower pole left thyroid lobe. will repeat Obstructive sleep apnea syndrome 08/02/2012 Assessment & Plan (02/04/2024 11:52 AM EDT): Reports using Cpap machine Pt states the Cpap machine may be malfunctioning. Plan: Refer to [facility] Sleep lab Assessment & Plan (07/09/2022 2:40 PM EST): Reports using Cpap machine with good results Fibromyalgia 08/02/2012 Encounters Date Type Department Care Team Description 02/27/2025 Orders Only GENERIC EXTERNAL DATA DEPARTMENT Provider, Generic External Data 02/16/2025 9:15 AM EDT Office Visit [facility] [place] [address] Lia Vernon MD Fibromyalgia (Primary Dx) 02/16/2025 Travel 02/09/2025 9:30 AM EDT Office Visit [facility] [place] [address] Lia Vernon MD Fibromyalgia (Primary Dx) 02/09/2025 Travel 01/19/2025 10:15 AM EDT Office Visit [facility] [place] [address] Lia Vernon MD Fibromyalgia (Primary Dx) 01/19/2025 Travel 01/12/2025 10:00 AM EDT Office Visit [facility] [place] [address] Lia Martinez MD Fibromyalgia (Primary Dx) 01/12/2025 Travel 01/05/2025 9:15 AM EDT Office Visit [facility] [place] [place] [address] Lia Vernon MD Fibromyalgia (Primary Dx) 01/05/2025 Travel 01/03/2025 9:45 AM EDT Office Visit [facility] [place] [address] Lia Vernon MD Fibromyalgia (Primary Dx) 01/03/2025 Travel 12/26/[address] [facility] [place] [address] Miguel Mcpherson MD office notes 12/15/2024 10:00 AM EDT Office Visit [address] [address] Lia Vernon MD Fibromyalgia (Primary Dx) 12/15/2024 Travel 11/28/2024 10:00 AM EDT Office Visit [facility] [address] [place] [address] Lia Vernon MD Fibromyalgia (Primary Dx) 11/28/2024 Travel from Last 3 Months Immunizations Immunization Administration Dates Next Due Influenza High-dose Quadriva lent Preservative Free 04/23/2023,03/13/2022,02/19/2021 Influenza injectable quadriv alent IIV4 with preservative 03/09/2018 Influenza injectable quadriv alent preservative free 06/16/2019,03/10/2017,03/15/2015 Influenza, Split (incl. lacho fied surface antigen) 06/22/2013 Influenza, trivalent, adjuvanted 03/01/2024 Pneumococcal Conjugate PCV 13 01/09/2021 Pneumococcal Polysaccharide PPSV23 08/18/2019 Tdap 12/19/2014 Family History Medical History Relation Name Comments Breast cancer Mother recurrence at 87 Relation Name Status Comments Mother Social History Tobacco Use Types Packs/Day Years Used Date Smoking Tobacco: Never Passive Smoke Exposure: Never Smokeless Tobacco: Never Tobacco Cessation:Counseling Given: Not Answered Alcohol Use Standard Drinks/Week Comments Never 0 [...] Orientation Straight 04/07/2022 10 :14 AM EDT Last Filed Vital Signs Vital Sign Reading Time Taken Comments Blood Pressure 143/84 11/18/2024 11:00 AM EDT Pulse 91 11/18/2024 11:00 AM EDT Temperature 36.8 C (98.3 F) 11/18/2024 11:00 AM EDT Respiratory Rate 18 11/18/2024 11:00 AM EDT Oxygen Saturation 97% 11/18/2024 11:00 AM EDT Inhaled Oxygen Concentration - - Weight 59 kg (130 lb) 11/18/2024 11:00 AM EDT Height 139.7 cm (4' 7 ) 06/30/2024 1:14 PM EST Body Mass Index 30.21 06/30/2024 1:14 PM EST Plan of Treatment Health Maintenance Due Date Last Done Comments CT Colonography 1955 FIT DNA/Cologuard 1955 FIT 1955 FOBT 1955 Sigmoidoscopy 1955 Hepatitis C Screening 11/26/1973 Zoster Vaccines (1 of 2) 11/26/2005 RSV Patients and Patients Aged 60 years or older (1 - Risk 60-74 years 1-dose series) 2015 Dental Oral Exam 06/24/2024 12/22/2023, 07/18/2022 Dental Prophylaxis 06/24/2024 12/22/2023, 08/01/2022 DTaP/Tdap/Td Vaccines (2 - Td or Tdap) 12/19/2024 12/19/2014 Dental X-Ray: Bitewings 12/22/2024 12/22/2023, 07/18 Depression Screening 02/03/2025 02/04/2024, 02/04/20 COVID-19 Vaccine ( - season) 2025 05/23/2021, 10/08/2020, 09/10/2020 Influenza Vaccine (#1) 2025 , 04/23/2023, 03/13/2022, Additional history exists Mammogram 02/22/2025 02/23/2024, 02/06, 02/19/2023, Additional history exists SDOH Screening 04/12/2025 04/12/2024 Alcohol/Substance Use Screening 06/30/2025 06/30/2024 Tobacco Screening 06/30/2025 06/30/2024 Dental X-Ray: Full Mouth 07/19/2025 07/18/2022 Pneumococcal Vaccine: 50+ Years (3 of 3 - PCV20 or PCV21) 01/09/2026 01/09/2021, 08/18/2019 HPV/Cotest 01/31/2029 02/01/2024, 12/30/2018 Pap Smear 01/31/2029 02/01/2024 Colonoscopy 04/24/2031 04/24/2021, 01/27/2017 Colorectal Cancer Screening 04/24/2031 HIB Vaccines Aged Out No longer eligi ble based on patient's age to complete this topic HPV Vaccines Aged Out No longer eligi ble based on patient's age to complete this topic Hepatitis A Vaccines Aged Out No long er eligible based on patient's age to complete this topic Hepatitis B Vaccines Aged Out No long er eligible based on patient's age to complete this topic IPV Vaccines Aged Out No longer eligi ble based on patient's age to complete this topic Meningococcal B Vaccine Aged Out No l onger eligible based on patient's age to complete this topic Meningococcal Vaccine Aged Out No dharmesh deborah eligible based on patient's age to complete this topic RSV under 20 months Aged Out No longe r eligible based on patient's age to complete this topic Rotavirus Vaccines Aged Out No longer eligible based on patient's age to complete this topic Procedures Procedure Name Priority Date/Time Associated Diagnosis Comments PROTHROMBIN TIME-INR Routine 02/27/2025 12:16 PM EDT CBC WITH AUTO DIFFERENTIAL Routine 02/27/2025 12:16 PM EDT BI MAMMOGRAM SCREENING TOMOSYNTHESIS BILATERAL Routine 02/23/2024 9:44 AM EDT THINPREP IMAGING PAP AND HPV MRNA E6/E7 Routine 02/01/2024 9:35 AM EDT Full PROPHYLAXIS - ADULT Routine 12/22/2023 10:00 AM EDT BITEWINGS - 4 RADIOGRAPHIC IMAGES Routine 12/22/2023 10:00 AM EDT Localized gingival recession, minimal Missing teeth, acquired PERIODIC ORAL EVALUATION - ESTABLISHED PATIENT Routine 12/22/2023 10:00 AM EDT INTRAORAL - COMPLETE SERIES OF RADIOGRAPHIC IMAGES Routine 07/18/2022 1:00 PM EST Dental caries HM COLONOSCOPY Routine 04/24/2021 1:59 PM EST from Last 3 Months or Most Recently Relevant to Health Maintenance Results * (ABNORMAL) CBC auto differential (02/27/2025 12:16 PM EDT) White Blood Count 5.7 4.8 - 10.8 X10*3/uL [facility] Red Blood Count 4.02(L) 4.20 - 5.50 X10*6/uL [facility] Hemoglobin 12.9 12.0 - 16.0 g/dl [facility] Hematocrit 38.1 37.0 - 47.0 % [facility] Mean Corpuscular Volume 94.8 80.0 - 98.0 fL [facility] Mean Corpuscular Hemoglobin 32.1 27.0 - 33.0 pg [facility] Mean Corpuscular HGB Conc 33.9 31.0 - 35.0 g/dl [facility] Red Cell Distribution Width 13.0 11.0 - 16.0 % [facility] Platelet Count 400 160 - 400 X10*3/uL [facility] Mean Platelet Volume 9.2(L) 9.4 - 12.3 fL [facility] Neutrophils Percent Auto 54.7 45 - 73 % [facility] Imm Gran Pct Auto 0.2 0.0 - 0.4 % [facility] Lymphocytes Percent Auto 29.0 20 - 40 % [facility] Monocytes Percent Auto 11.1(H) 2 - 11 % [facility] Eosinophils Percent Auto 3.9 0 - 4 % [facility] Basophils Percent Auto 1.1 0 - 2 % [facility] NRBC Pct Auto 0.0 0.0 - 0.2 /100WBC [facility] Neutrophils Absolute Auto 3.1 2.0 - 8.3 x10*3/uL [facility] Imm Gran Abs Auto 0.01 0.00 - 0.03 X10*3/uL [facility] Lymphocytes Absolute Auto 1.7 1.2 - 4.9 X10*3/uL [facility] Monocytes Absolute Auto 0.6 0.1 - 1.2 X10*3/uL [facility] Eosinophils Absolute Auto 0.2 0.0 - 0.4 X10*3/uL [facility] Basophils Absolute Auto 0.1 0.0 - 0.2 X10*3/uL [facility] NRBC Abs Auto 0.000 0.0 - 0.012 X10*3/uL [facility] 02/27/2025 12:1 6 PM EDT 02/27/2025 12:16 PM EDT us Generic External Data Provider LAB BLOOD ORDERAB LES Final Result [facility] [address] [place] [address] [phone] * Prothrombin Time-INR (02/27/2025 12:16 PM EDT) Prothrombin Time 11.0 10.9 - 12.4 SEC [facility] INTERNATIONAL NORM RATIO 1.0 0.9 - 1.1 [facility] Comment:INTERNATIONAL NORMAL IZED RATIO (INR) [...] Provider LAB BLOOD ORDERAB LES Final Result Performing Organization Address City/State/[facility] Co de Phone Number [facility] [address] [place] [phone] * BI Mammogram Screening Tomosynthesis Bilateral (02/23/2024 9:44 AM EDT) Anatomical Region Laterality Modality Breast Bilateral Mammography 02/23/2024 9:44 AM EDT Narrative 03/07/2024 4:13 PM EDT [facility] [address] [place] [address] Mammography Report Signed Patient: Ayaka Patel MR#: [id number] 5 : 1955 Acct:[id number] Age/Sex: 68 / F ADM Date: 02/23/24 Loc: HO.MAMMO Attending Dr: Miguel Martínez MD Ordering Physician: Miguel Martínez MD Resu lts: 1Negative Date of Service: 02/23/24 Follow Up: 1 Year From Orig inal Mammogram Procedure(s): MM tomosynthesis screening BI Accession Number(s): [id number] cc: Miguel Martínez MD EXAMINATION: MM SCREENING DIGITAL BREAST TOMOSYNTHESIS, BILATERAL CLINICAL INFORMATION: Screening. Asymptomatic. COMPARISON: Mammography: Comparison is made with available priors TECHNIQUE: Digital breast mammography with tomosynthesis is performed in both the craniocaudal and mediolateral oblique views along with computer-aided detection (CAD). FINDINGS: There are scattered areas of fibroglandular density (ACR BI-RADS breast composition Category b). There are no significant masses, abnormal calcifications, or other abnormalities. MM/MM tomosynthesis screening BI IMPRESSION: No mammographic evidence of malignancy. ASSESSMENT: BI-RADS BI-RADS 1 - Negative RECOMMENDATION: Routine annual mammography screening. 1 year F/U This examination should not preclude the clinical evaluation of a suspicious palpable abnormality. This patient's information was entered into a reminder system with a target due date for their next mammogram. Electronically signed by: Olga Lidia Carlin DO 03/07/2024 04:10 PM EDT RP Dictated By: Olga Lidia Carlin DO Signed By: <Electronically signed by Olga Lidia Carlin DO in OV> 03/07/24 1610 DD/ 0944 TD/TT: 02/23/24 1005 Ultrasound Tech: Procedure Note Donotuseinterpreter, [facility] - [facility] [address] [place] [address] Mammography Report Signed Patient: Ayaka PatelMR#: [id number] 5 : 6Acct:[id number] Age/Sex: 68 / FADM Date: 02/23/24 Loc: HO.MAMMO Attending Dr: Miguel Martínez MD Ordering Physician: Miguel Martínez MDResu lts: 1Negative Date of Service: 02/23/24Follow Up: 1 Year From Orig inal Mammogram Procedure(s): MM tomosynthesis screening BI Accession Number(s): [id number] cc: Miguel Martínez MD EXAMINATION: MM SCREENING DIGITAL BREAST TOMOSYNTHESIS, BILATERAL CLINICAL INFORMATION: Screening. Asymptomatic. COMPARISON: Mammography: Comparison is made with available priors TECHNIQUE: Digital breast mammography with tomosynthesis is performed in both the craniocaudal and mediolateral oblique views along with computer-aided detection (CAD). FINDINGS: There are scattered areas of fibroglandular density (ACR BI-RADS breast composition Category b). There are no significant masses, abnormal calcifications, or other abnormalities. MM/MM tomosynthesis screening BI IMPRESSION: No mammographic evidence of malignancy. ASSESSMENT: BI-RADS BI-RADS 1 - Negative RECOMMENDATION: Routine annual mammography screening. 1 year F/U This examination should not preclude the clinical evaluation of a suspicious palpable abnormality. This patient's information was entered into a reminder system with a target due date for their next mammogram. Electronically signed by: Olga Lidia Carlin DO 03/07/2024 04:10 PM EDT RP Dictated By: Olga Lidia Carlin DO Signed By: <Electronically signed by Olga Lidia Carlin DO in OV> 03/07/24 1610 DD/ 0944 TD/TT: 02/23/24 1005 Ultrasound Tech: Miguel Faye MD IMG BI PROCEDURES Fin al Result * [facility] Pap and HPV mRNA E6/E7 (02/01/2024 9:35 AM EDT) HPV nRNA E6/E7 Not Detected Not Detected [facility] Comment:Methodology: Transcr iption-Mediated AmplificationThis assay detects E6/E7 viral messenger RNA (mRNA) from 14high-risk HPV types (16,18,31,33,35,39,45,51,52,56,58,59,66,68).Cervical sources are required for HPV testing.If a vaginal source from a patient who has had atotal hysterectomy with removal of cervix wassubmitted, please contact the testing laboratoryfor alternative testing options.For additional information, please refer tohttp://[email or web address].ru/faq/[email or web address](This link if provided for information/educational purposes only.)THIS TEST WAS PERFORMED AT:[facility] [place] [phone] JOHN MD SOURCE: SEE NOTE [facility] Comment:Cervix Report Status: TNP [facility] Clinical Information: SEE NOTE [facility] Comment:None given LMP: SEE NOTE [facility] Comment:NONE GIVEN Prev. PAP: SEE NOTE [facility] Comment:2019 Prev. BX: SEE NOTE [facility] Comment:NONE GIVEN Statement Of Adequacy: SEE NOTE [facility] Comment:SATISFACTORY FOR ANTONINO HUERTA General Categorization: [facility] Interpretation/Result: SEE NOTE [facility] Comment:Cytology Results: Ne gative for intraepitheliallesion or malignancy.Atrophic pattern; predominantly parabasal cells Cytology Comment SEE NOTE [facility] Comment:This Pap test has be en evaluated with computerassisted technology. Shearer Operator: SEE NOTE [facility] Comment:BK,CT(ASCP)CT screen ing location: [address] Review Shearer Operator: [facility] Pathologist [facility] PAP Infection [facility] See Note SEE NOTE [facility] Comment:EXPLANATORY NOTE:The Pap is a screening test for cervical cancer. It isnot a diagnostic test and is subject to false negativeand false positive results. It is most reliable when asatisfactory sample, regularly obtained, is submittedwith relevant clinical findings and history, and whenthe Pap result is evaluated along with historic andcurrent clinical information. 02/01/2024 9:35 AM EDT 02/01/2024 4:38 PM EDT Narrative [facility] - 02/03/2024 12:23 PM EDT SEE SCANNED RESULTS IN [id number] us Tanvi Correa CNM LAB PATHOLOGY ORDERABLES Final Result [facility] [address] [place] [address] [phone] * Colonoscopy (04/24/2021 1:59 PM EST) us Historical Provider HEALTH MAINTENANCE Final Result from Last 3 Months or Most Recently Relevant to Health Maintenance Insurance [facility] STANDARD [facility] OPTIONS (HMO D-SNP) [facility] 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
--- OUTSIDE RECORDS SUMMARY | 2025-02-27 13:54 | XMS_ITS | Encounter Summary ---
Author Organization [employer] Address [address] [facility] [address] [place] [address] Care Team Providers Care Airplane Patroller Name Role Phone Miguel Mcpherson MD Primary Care Provide r Encounter Details Date Type Department Care Team (Late st Contact Info) Description 10/01/2023 Orders Only [facility] [address] [place] [address] ProviderAlexis MD Social History Tobacco Use Types Packs/Day Years Used Date Smoking Tobacco: Never Passive Smoke Exposure: Never Smokeless Tobacco: Never Alcohol Use Standard Drinks/Week Comments Never 0 (1 standard drink = 0.6 oz pur e alcohol) Depression Answer Date Recorded Patient Health Questionnaire-9 Score 5 07/10/2022 Housing Stability Answer Date Recorded What is your housing situation today? Not on gay e 09/01/[address] you li ve. Do you have problems with any of the following? None of the above 09/01/2023 Food Insecurity Answer Date Recorded Within the [...] Procedure Name Priority Date/Time Associated Diagnosis Comments HM COLONOSCOPY Routine 04/24/2021 1:59 PM EST documented in this encounter Results * Hm Colonoscopy (04/24/2021 1:59 PM EST) us Historical Provider HEALTH MAINTENANCE Final Result documented in this encounter Visit Diagnoses Not on filedocumented in this encounter Additional Health Concerns Assessment Noted Time PHQ-9 Depression Total Score: 5 07/10/19 23 11:25 AM EST documented as of this encounter Care Teams Airplane Patroller Relationship Specialty Start Date End Date Miguel Mcpherson MD [address] [place] [id number] PCP - General Internal Medicine 01/27/14 documented as of this encounter
--- OUTSIDE RECORDS SUMMARY | 2025-02-27 13:54 | XMS_ITS | Encounter Summary ---
Author Organization [employer] Address [address] [place] [address] [address] [place] [address] Care Team Providers Care Inside Sales Administrator Name Role Phone Miguel Mcpherson MD Primary Care Provide r Encounter Details Date Type Department Care Team ([facility] st Contact Info) Description 10/16/2022 Abstract [facility] [address] [place] [address] Miguel Mcpherson MD [address] [place] [address] Social History Tobacco Use Types Packs/Day Years [...] suspected to have Coronavirus/COVID-19? No / Unsure 10/14/2022 1:35 PM EDT documented as of this encounter Plan of Treatment Not on file documented as of this encounter Procedures Procedure Name Priority Date/Time Associated Diagnosis Comments COLONOSCOPY Routine 01/27/2017 documented in this encounter Results * Hm Colonoscopy (01/27/2017) Colonoscopy Normal Normal 01/27/2017 Pat Kathleen Castañeda - 01/27/2017 8:57 AM EDT Recommended 10 year follow up us Historical Provider HEALTH MAINTENANCE Edited Result - Final documented in this encounter Visit Diagnoses Not on filedocumented in this encounter Additional Health Concerns Assessment Noted Time PHQ-9 Depression Total Score: 5 07/10/19 23 11:25 AM EST documented as of this encounter Care Teams Inside Sales Administrator Relationship Specialty Start Date End Date Miguel Mcpherson MD [address] [place] [id number] PCP - General Internal Medicine 01/27/14 documented as of this encounter
== END 2025-02-27 11:57 | disposition home or self-care (01) ==
LOC: HO.HGI 11:13
PROVIDERS: PCP Internal Medicine; Visit Provider Internal Medicine Gastroenterology
DX: K76.0 Fatty (change of) liver, not elsewhere classified (principal)
CPT/HCPCS: 99204

== ENCOUNTER 2025-02-27 11:13 | Outpatient (REF) | payer OTHER, SELFPAY ==
[2025-02-27 12:17] LABS: MANUAL DIFF FLAG NO
[2025-02-27 13:13] LABS: Hematocrit 38.1 % (37.0-47.0); Hemoglobin 12.9 g/dl (12.0-16.0); Imm Gran Abs Auto 0.01 X10*3/uL (0.00-0.03); Imm Gran Pct Auto 0.2 % (0.0-0.4); Lymphocytes Absolute Auto 1.7 X10*3/uL (1.2-4.9); Mean Corpuscular HGB Conc 33.9 g/dl (31.0-35.0); Mean Corpuscular Hemoglobin 32.1 pg (27.0-33.0); Mean Corpuscular Volume 94.8 fL (80.0-98.0); NRBC Abs Auto 0.000 X10*3/uL (0.0-0.012); NRBC Pct Auto 0.0 /100WBC (0.0-0.2); Platelet Count 400 X10*3/uL (160-400); Red Blood Count 4.02 X10*6/uL (4.20-5.50); White Blood Count 5.7 X10*3/uL (4.8-10.8)
[2025-02-27 13:19] LABS: INTERNATIONAL NORM RATIO 1.0 (0.9-1.1); Prothrombin Time 11.0 SEC (10.9-12.4)
[2025-02-27 14:18] LABS: Alanine Aminotransferase 47 U/L (0-31); Albumin Level 4.2 g/dL (3.5-5.0); Alkaline Phosphatase 123 U/L (39-117); Anion Gap 13 (12-20); Aspartate Amino Transferase 44 U/L (5-31); Blood Urea Nitrogen 16 mg/dL (9-16); Calcium 9.5 mg/dL (8.4-10.2); Carbon Dioxide 26 mmol/L (22-29); Chloride 108 mmol/L (96-108); Estimated Glomerular Filt Rate > 60; Potassium 3.6 mmol/L (3.3-5.1); Sodium 143 mmol/L (135-145); Total Protein 7.8 g/dL (6.5-8.0)
[2025-02-28 14:11] LABS: HBS Num1 0.71 mIU/mL (0-7.99); HBc Num1 0.10 S/CO (0.00-0.79); HBsAGNum1 0.37 S/CO (0.00-0.99); Hepatitis A Antibody IgM 0.19 Index (0-0.79); Hepatitis B Surface Antigen Negative (Negative); ~HepC Num1 0.16 S/CO (0.00-0.79); ~Hepatitis A Antibody IgM Nonreactive (Nonreactive); ~Hepatitis B Surface Antibody NONREACTIVE (Nonreactive); ~Hepatitis C Antibody Nonreactive (Nonreactive)
[2025-02-28 17:38] LABS: Immunoglobulin G 1555 mg/dL (600-1540)
[2025-03-08 01:24] LABS: FIB-ALT 31 U/L (6-29); FIB-Alpha-2-Macroglobulin 197 mg/dL (106-279); FIB-Apolipoprotein A1 211 mg/dL (101-198); FIB-GGT 63 U/L (3-65); FIB-Haptoglobin 177 mg/dL (43-212); FIB-Total Bilirubin 0.3 mg/dL (0.2-1.2); Liver Fibrosis Score 0.11; Liver Fibrosis Stage F0; Nec Inflam Act Grade A0; Nec Inflam Act Score 0.12
== END 2025-02-27 11:14 | disposition home or self-care (01) ==
LOC: HO.LAB 11:13
PROVIDERS: PCP Internal Medicine; Visit Provider Internal Medicine Gastroenterology
DX: K75.81 Nonalcoholic steatohepatitis (NASH) (principal); K52.839 Microscopic colitis, unspecified
CPT/HCPCS: 36415; 80053; 81596; 82784; 85025; 85610; 86704; 86706; 86709; 86803; 87340; 99202